=== PATIENT | male | born 1980 | race Caucasian/White ===

== ENCOUNTER 2016-06-18 23:44 | Inpatient (IN) | payer BC ==
[~2016-06-18] VITALS: Ht 182.9 cm; Wt 89.3 kg
[2016-06-19] VITALS (10 sets, daily range): BP systolic 109–123; BP diastolic 66–79; PULSE 62–82; TEMP 36.6–37.2; O2SAT 94–97; Ht 182.9 cm; Wt 89.3 kg
[2016-06-19 00:02] LABS: BASO % 0.2 %; BASO ABS # 0.02 K/uL (0-0.2); COMPLETE YES; EOS % 0.3 %; HEMATOCRIT 44.3 % (42-52); IG% 0.5 %; LYMPH % 12.9 %; LYMPH ABS # 1.67 K/uL (1.2-3.4); MEAN CELL VOLUME 93.5 fL (80-100); MEAN CORPUSCULAR HEMOGLOBIN 31.4 pg (25-34); MEAN CORPUSCULAR HGB CONC 33.6 g/dl (32-36); MEAN PLATELET VOLUME 11.6 fL (7.4-10.4); NEUT % 75.1 %; PLATELET COUNT 181 K/uL (130-400); RED BLOOD COUNT 4.74 M/uL (4.7-6.1)
[2016-06-19 00:02] LABS: ISTAT CREATININE 1.3 mg/dl (0.6-1.3); ISTAT IONIZED CALCIUM 1.12 mmol/l (1.12-1.32)
[2016-06-19 00:14] LABS: PROTHROMBIN TIME (PATIENT) 10.7 SECONDS (9.0-12.0)
[2016-06-19 00:19] LABS: BUN/CREATININE RATIO 11.7 (10-20); CALCIUM 8.3 mg/dl (8.5-10.1); CREATININE 1.7 mg/dl (0.60-1.40); MAGNESIUM 3.1 mg/dl (1.8-2.4); POTASSIUM 3.9 mmol/L (3.5-5.1)
--- NOTE | 2016-06-19 00:22 | EMERGENCY ROOM VISIT NOTE ---
History Report prepared by Briceibjesse: Fady Emmanuel Under the Supervision of: Dr. Clarence Pacheco M.D. First contact with patient: 23:32 Chief Complaint: CARDIAC ASSESSMENT Stated Complaint: CARDIAC History of Present Illness The patient is a 35 year old male who presents to the Emergency Room via EMS with complaints of intermittent heart palpitations starting about 3 hours ago. The patient also had lightheadedness, chest pain, nausea. He had a sudden onset of his symptoms. per EMS, the patient was found to be in V-tach. He cardioverted with 200 joules but went into torsades. He was given 2 doses of magnesium and 3 mg of Versed in route to the Emergency Room. He has a history of Mljhj-Hylomnvkp-Fgfhc Syndrome with an ablation. The patient currently denies any pain. He currently denies chest pain, shortness of breath, lower extremity pain, or any other complaints. He denies any recent exposure to chemicals. He also denies any drug or alcohol use. Source of History: patient, EMS Onset: about 3 hours ago Position: chest Quality: other (heart palpitations) Timing: intermittent Associated Symptoms: + chest pain, + nausea, No SOB Review of Systems See HPI for pertinent positives & negatives. A total of 10 systems reviewed and were otherwise negative. Past Medical & Surgical Medical Problems: (1) History of cardioversion (2) Ventricular tachycardia (3) Giqiv-Xisnqydbn-Yuedz syndrome Family History Patient reports no known family medical history. Social History Smoking Status: Never Smoker Marital Status: Occupation Status: employed Current/Historical Medications No Active Prescriptions or Reported Meds Allergies Coded Allergies: No Known Allergies (Unverified , 06/18/16) Physical Exam Vital Signs Date Time Temp Pulse Resp B/P Pulse Ox O2 Delivery O2 Flow Rate FiO2 06/19/16 01:21 86 16 107/74 98 Nasal Cannula 2.0 06/19/16 00:55 88 16 100/74 100 Room Air 06/19/16 00:07 Nasal Cannula 2.0 06/19/16 00:04 84 16 107/80 98 Nasal Cannula 2.0 06/18/16 23:57 99 Nasal Cannula 2.0 06/18/16 23:55 86 06/18/16 23:50 36.6 91 20 119/84 99 Nasal Cannula 2.0 Physical Exam GENERAL: Patient is minimal distress, anxious appearing. HEENT: No acute trauma, normocephalic atraumatic, mucous membranes moist, no nasal congestion, no scleral icterus. NECK: No stridor, no adenopathy, no meningismus, trachea is midline. CHEST: Old sternotomy scarring LUNGS: No dyspnea. Clear to auscultation and equal bilaterally. No wheeze, no rhonchi. HEART: Regular rate and rhythm. No murmurs, rubs, gallops appreciated. ABDOMEN: Soft, nontender, bowel sounds positive, no masses appreciated, no peritonitis. BACK: No midline tenderness, no CVA tenderness EXTREMITIES: Normal motion all extremities, no cyanosis, no edema. NEUROLOGIC: Alert and oriented, no acute motor or sensory deficits, no focal weakness, cranial nerves grossly intact. SKIN: No rash, no jaundice, no diaphoresis. Medical Decision & Procedures ER Provider Diagnostic Interpretation: X ray results are stated below per my interpretation: CHEST X-RAY ONE VIEW PORTABLE Large globular heart, multiple sternotomy wires and clips, no infiltrate, no effusion, no congestive failure. Laboratory Results 06/18/16 23:45 Red Blood Count 4.74, Mean Corpuscular Volume 93.5, Mean Corpuscular Hemoglobin 31.4, Mean Corpuscular Hemoglobin Concent 33.6, Mean Platelet Volume 11.6, Neutrophils (%) (Auto) 75.1, Lymphocytes (%) (Auto) 12.9, Monocytes (%) (Auto) 11.0, Eosinophils (%) (Auto) 0.3, Basophils (%) (Auto) 0.2, Neutrophils # (Auto ) 9.69, Lymphocytes # (Auto) 1.67, Monocytes # (Auto) 1.42, Eosinophils # (Auto ) 0.04, Basophils # (Auto) 0.02 Test 06/18/16 23:45 06/18/16 23:50 White Blood Count 12.90 K/uL (4.8-10.8) Red Blood Count 4.74 M/uL (4.7-6.1) Hemoglobin 14.9 g/dL (14.0-18.0) Hematocrit 44.3 % (42-52) Mean Corpuscular Volume 93.5 fL (80-100) Mean Corpuscular Hemoglobin 31.4 pg (25-34) Mean Corpuscular Hemoglobin Concent 33.6 g/dl (32-36) Platelet Count 181 K/uL (130-400) Mean Platelet Volume 11.6 fL (7.4-10.4) Neutrophils (%) (Auto) 75.1 % Lymphocytes (%) (Auto) 12.9 % Monocytes (%) (Auto) 11.0 % Eosinophils (%) (Auto) 0.3 % Basophils (%) (Auto) 0.2 % Neutrophils # (Auto) 9.69 K/uL (1.4-6.5) Lymphocytes # (Auto) 1.67 K/uL (1.2-3.4) Monocytes # (Auto) 1.42 K/uL (0.11-0.59) Eosinophils # (Auto) 0.04 K/uL (0-0.5) Basophils # (Auto) 0.02 K/uL (0-0.2) RDW Standard Deviation 44.0 fL (36.4-46.3) RDW Coefficient of Variation 12.8 % (11.5-14.5) Immature Granulocyte % (Auto) 0.5 % Immature Granulocyte # (Auto) 0.06 K/uL (0.00-0.02) Prothrombin Time 10.7 SECONDS (9.0-12.0) Prothromb Time International Ratio 1.0 (0.9-1.1) Activated Partial Thromboplast Time 25.2 SECONDS (21.0-31.0) Partial Thromboplastin Ratio 1.0 Est Creatinine Clear Calc Drug Dose 67.2 ml/min Phosphorus Level 3.8 mg/dl (2.5-4.9) Thyroid Stimulating Hormone (TSH) 3.960 uIu/ml (0.300-4.500) Free Thyroxine 1.27 ng/dl (0.80-1.60) Bedside Hemoglobin 15.0 g/dl (14.0-18.0) Bedside Hematocrit 44 % (42-52) Bedside Sodium 139 mEq/L (135-144) Bedside Potassium 3.5 mEq/L (3.3-5.0) Bedside Chloride 98 mEq/L (101-112) Bedside Total CO2 23 mEq/l (24-31) Bedside Blood Urea Nitrogen 23 mg/dl (7-18) Bedside Creatinine 1.3 mg/dl (0.6-1.3) Bedside Glucose (other) 183 mg/dl (70-99) Bedside Ionized Calcium (Anastacia) 1.12 mmol/l (1.12-1.32) Date/Time Source Procedure Growth Status 06/19/16 00:00 Nasal MRSA DNA Surveillance Screen - Final Specimen Negative for MRSA by DNA Probe Complete Laboratory results as reviewed by me. Medications Administered Medications (Trade) Dose Ordered Sig/Cristofer Route Start Time Stop Time Status Last Admin Dose Admin Sodium Chloride (Nss 1000ml) 1,000 ml @ 125 mls/hr Q8H STAT IV 06/19/16 00:27 06/19/16 02:51 DC 06/19/16 00:52 125 MLS/HR ECG Indication: palpitations Rate (beats per minute): 81 Rhythm: sinus rhythm Findings: 1st degree AV block, RBBB, ST depression, no ectopy, other (Wide complex QRS) ED Course 2332: The patient was evaluated in room B01. A complete history and physical exam was performed. 0014: I reevaluated the patient who is in no distress. seaport planning manager is attempting to get records from [facility]. 0027: Sodium Chloride 1000 ml @ 125 mls/hr IV 0051: I discussed the patient's case with Dr. Todd, from [facility]. 0054: I discussed the patient's case with Dr. Deras, probation manager with [facility], who is agreeable to further evaluating the patient. 0101: I discussed the patient's case with Dr. Pacheco, fiberglass fabricator with [facility]. 0110: Upon reevaluation, the patient is resting comfortably. Discussed results and treatment plan with the patient. He verbalized understanding and agreement with the treatment plan. The patient will be evaluated for further management. 0220: No records could be obtained from [place]. Medical Decision Differential: NSR, SVT, PACs, PVCs, Cardiac Dysrhythmia, Endocrine Dysfunction, Electrolyte/Metabolic Abnormality, Pulmonary Embolism, Infectious, GI, amonst other pathologies entertained. 35 yr old male with complex cardiac surgical history as a child though nothing in recent years and on no medications. Notes periodic <1 min episodes of palpations over last few years without other issue that resolve spontaneously. On no medications and no recent cardiac/PCP evaluations. 3 Hr prior to EMS patient noted palpitations with resultant chest pain, shortness of breath and lightheaded. EMS contacted me from [facility] for medical command regarding this patient who was ill appearing in significant distress with a wide complex tachycardia. Cardioverted x 2 (initially converted to Torsades) and by time of arrival patient feeling vastly improved in no further distress. EKG shows prolonged RBBB with 1st av block and no STEMI. He is asymptomatic and feeling well. CXR with large heart consistent with cardiac surgery. Trop mild elevation consistent with cardioversion and tachycardia. Mild elevated Mag consistent with IV mag given 2nd to torsades. Renal insufficiency unclear if new. Attempted to obtain outside records without success. Discussed with ICU , Cards and Hospitalist. Will hold on any current meds and just keep close monitor with defib pads in place overnight. Unclear if Vtach or SVT and will await fiberglass fabricator input. Stable throughout ED stay and feeling well. Consults Time Called: 0036 [facility]ing [facility] Returned Call: 0051 I discussed the patient's case with Dr. Todd, from [facility]. Additional Consults: Time Called: 005 Consulted Physician: Dr. Deras, probation manager with [facility] Returned Call: 0054 Additional Comments: I discussed the patient's case with Dr. Deras, probation manager with [facility], who is agreeable to further evaluating the patient. Time Called: 0056 Consulted Physician: Dr. Pacheco, fiberglass fabricator with [facility] Returned Call: 0101 Additional Comments: I discussed the patient's case with Dr. Pacheco, fiberglass fabricator with [facility]. Impression Primary Impression: Ventricular tachycardia Additional Impression: Torsades de pointes Scribe Attestation The scribe's documentation has been prepared under my direction and personally reviewed by me in its entirety. I confirm that the note above accurately reflects all work, treatment, procedures, and medical decision making performed by me. Departure Information Dispostion Being Evaluated By Hospitalist Prescriptions No Active Prescriptions or Reported Meds Patient Instructions [facility] Problem Qualifiers
[2016-06-19] MEDS ORDERED: SODIUM CHLORIDE 0.9% 1000ML 1,000 ML IV STA (00:27)
[2016-06-19 00:35] LABS: CKMB/CK RATIO 4.4 (0-3.0); PHOSPHORUS 3.8 mg/dl (2.5-4.9); THYROID STIMULATING HORMONE 3.96 uIu/ml (0.300-4.500)
[2016-06-19] MEDS ORDERED: ACETAMINOPHEN 325 MG TAB PO PRN (01:30)
[2016-06-19] MEDS ORDERED: ONDANSETRON INJ 2 MG/ML 2 ML VIAL IV PRN (01:30)
[2016-06-19 02:32] LABS: CKMB/CK RATIO 6.9 (0-3.0)
--- NOTE | 2016-06-19 04:41 | History and Physical ---
History & Physical Date & Time of Service: June 19, 2016 at 04:24 Chief Complaint: History Of Cardioversion,Ventricular Tachycardia Primary Care Physician: No Doctor, Assigned History of Present Illness Source: patient The patient is a 35-year-old male who had the sudden onset of heart palpitations , lightheadedness, chest pain and nausea that began about 3 hours prior to arrival. He has a significant cardiac history, has had these symptoms in the past, but previously had only lasted for a few beats, and this time did not stop. When EMS arrived, he was found to be in V. tach, he was then cardioverted with 200 J, but then went into torsades. He was given 2 doses of magnesium IV and 3 mg of Versed IV en route to the emergency department. He is status post surgical ablation for Szzsf-Jqqmmfkaz-Mlcip syndrome. He reports that since he spoke to [facility], is been less physically active than he had been, and his diet has not been as good as it used to be. He is not on any prescription, OTC or other drugs. Past Medical/Surgical History Medical Problems: (1) Pqvlf-Ipthwnksb-Nnzwp syndrome Status: Resolved Family History Patient reports no known family medical history. Social History Smoking Status: Never Smoker Smokeless Tobacco Use: No Alcohol Use: none Drug Use: none Marital Status: Housing status: lives with family Occupational Status: employed Multi-Drug Resistant Organisms History of MDRO: No Allergies Coded Allergies: No Known Allergies (Unverified , 06/18/16) Home Medications No Active Prescriptions or Reported Meds Review of Systems Constitutional: No chills, No fatigue, No fever, No problem reported, No sweats , No weakness, No weight loss Eyes: No diplopia, No discharge, No eye pain, No problem reported, No redness, No worsening of vision ENT: No dental problems, No hearing loss, No nasal symptoms, No problem reported, No sore throat, No tinnitus, No trouble swallowing, No unusual epistaxis Respiratory: No cough, No dyspnea at rest, No dyspnea on exertion, No hemoptysis, No problem reported, No shortness of breath, No sputum, No wheezing Cardiovascular: + palpitations, No PND, No chest pain, No claudication, No edema, No orthopnea Abdomen: No GI bleeding, No constipation, No diarrhea, No nausea, No pain, No problem reported, No vomiting Musculoskeletal: No calf pain, No joint pain, No muscle pain, No problem reported, No swelling Genitourinary - Male: No dysuria, No hematuria, No impotence, No lesions, No penile discharge, No problem reported, No urinary frequency, No urinary hesitancy, No urinary incontinence, No urinary retention, No urinary urgency Neurologic: No balance problems, No memory loss, No numbness/tingling, No paralysis, No problem reported, No vertigo, No weakness Psychiatric: No anhedonism, No anxiety, No depression symptoms, No insomnia, No problem reported, No substance abuse Endocrine: No excessive thirst, No excessive urination, No fatigue, No problem reported Hematologic / Lymphatic: No abnormal bleeding/bruising, No clotting problems, No night sweats, No problem reported, No swollen lymph nodes Integumentary: No bleeding, No color change, No itch, No new/changing skin lesions, No problem reported, No rash Allergic / Immunologic: No environmental allergies, No food allergies, No frequent infections, No hives, No pet sensitivities, No poor healing, No problem reported, No prolonged convalescence, No seasonal allergies Physical Exam Vital Signs Date Time Temp Pulse Resp B/P Pulse Ox O2 Delivery O2 Flow Rate FiO2 06/19/16 02:15 36.6 82 15 114/77 96 Room Air 06/19/16 01:45 85 16 103/75 98 Nasal Cannula 2.0 06/19/16 01:21 86 16 107/74 98 Nasal Cannula 2.0 06/19/16 00:55 88 16 100/74 100 Room Air 06/19/16 00:07 Nasal Cannula 2.0 06/19/16 00:04 84 16 107/80 98 Nasal Cannula 2.0 06/18/16 23:57 99 Nasal Cannula 2.0 06/18/16 23:55 86 06/18/16 23:50 36.6 91 20 119/84 99 Nasal Cannula 2.0 General Appearance: WD/WN, no apparent distress Head: normocephalic, atraumatic Eyes: normal inspection, PERRL, EOMI, sclerae normal ENT: normal ENT inspection, hearing grossly normal, pharynx normal Neck: supple, no adenopathy, thyroid normal, no JVD, no carotid bruits Respiratory/Chest: chest non-tender, lungs clear, normal breath sounds, no respiratory distress, no accessory muscle use Cardiovascular: regular rate, rhythm, no edema, no gallop, no JVD, no murmur, normal peripheral pulses Abdomen/GI: normal bowel sounds, non tender, soft, no organomegaly, no pulsatile mass Back: normal inspection, no CVA tenderness, no muscle spasm, normal range of motion Extremities/Musculoskelatal: normal inspection, no calf tenderness, normal capillary refill, no pedal edema, normal range of motion Neurologic/Psych: mri technologist II-XII nml as tested, no motor/sensory deficits, alert, normal mood/affect, normal reflexes, oriented x 3 Skin: normal color, warm/dry, no rash Lymphatic: no adenopathy Diagnostics Laboratory Results Results Past 24 Hours Test 06/18/16 23:45 06/18/16 23:50 06/19/16 01:46 Range/Units White Blood Count 12.90 4.8-10.8 K/uL Red Blood Count 4.74 4.7-6.1 M/uL Hemoglobin 14.9 14.0-18.0 g/dL Hematocrit 44.3 42-52 % Mean Corpuscular Volume 93.5 80-100 fL Mean Corpuscular Hemoglobin 31.4 25-34 pg Mean Corpuscular Hemoglobin Concent 33.6 32-36 g/dl Platelet Count 181 130-400 K/uL Mean Platelet Volume 11.6 7.4-10.4 fL Neutrophils (%) (Auto) 75.1 % Lymphocytes (%) (Auto) 12.9 % Monocytes (%) (Auto) 11.0 % Eosinophils (%) (Auto) 0.3 % Basophils (%) (Auto) 0.2 % Neutrophils # (Auto) 9.69 1.4-6.5 K/uL Lymphocytes # (Auto) 1.67 1.2-3.4 K/uL Monocytes # (Auto) 1.42 0.11-0.59 K/uL Eosinophils # (Auto) 0.04 0-0.5 K/uL Basophils # (Auto) 0.02 0-0.2 K/uL RDW Standard Deviation 44.0 36.4-46.3 fL RDW Coefficient of Variation 12.8 11.5-14.5 % Immature Granulocyte % (Auto) 0.5 % Immature Granulocyte # (Auto) 0.06 0.00-0.02 K/uL Prothrombin Time 10.7 9.0-12.0 SECONDS Prothromb Time International Ratio 1.0 0.9-1.1 Activated Partial Thromboplast Time 25.2 21.0-31.0 SECONDS Partial Thromboplastin Ratio 1.0 Sodium Level 141 136-145 mmol/L Potassium Level 3.9 3.5-5.1 mmol/L Chloride Level 103 98-107 mmol/L Carbon Dioxide Level 26 21-32 mmol/L Anion Gap 12.0 22.0 16-25 mmol/L Blood Urea Nitrogen 20 7-18 mg/dl Creatinine 1.70 0.60-1.40 mg/dl Est Creatinine Clear Calc Drug Dose 67.2 ml/min Estimated GFR () 59.7 Estimated GFR (Non- 51.5 BUN/Creatinine Ratio 11.7 10-20 Random Glucose 193 70-99 mg/dl Calcium Level 8.3 8.5-10.1 mg/dl Phosphorus Level 3.8 2.5-4.9 mg/dl Magnesium Level 3.1 1.8-2.4 mg/dl Total Creatine Kinase 164 211 39-308 U/L Creatine Kinase MB 7.2 14.5 0.5-3.6 ng/ml Creatine Kinase MB Ratio 4.4 6.9 0-3.0 Troponin I 0.789 1.430 0-0.045 ng/ml Thyroid Stimulating Hormone (TSH) 3.960 0.300-4.500 uIu/ml Free Thyroxine 1.27 0.80-1.60 ng/dl Bedside Hemoglobin 15.0 14.0-18.0 g/dl Bedside Hematocrit 44 42-52 % Bedside Sodium 139 135-144 mEq/L Bedside Potassium 3.5 3.3-5.0 mEq/L Bedside Chloride 98 101-112 mEq/L Bedside Total CO2 23 24-31 mEq/l Bedside Blood Urea Nitrogen 23 7-18 mg/dl Bedside Creatinine 1.3 0.6-1.3 mg/dl Bedside Glucose (other) 183 70-99 mg/dl Bedside Ionized Calcium (Anastacia) 1.12 1.12-1.32 mmol/l Microbiology Results 06/19/16 MRSA DNA Surveillance Screen - Final, Complete Specimen Negative for MRSA by DNA Probe CXR normal EKG Rhythm strip from EMS shows V. tach versus SVT with aberrancy at 198 bpm. EKG in the ED shows sinus rhythm at 81 bpm, first-degree AV block, right bundle branch block, and nonspecific ST-T changes. Impression Assessment and Plan V. tach versus SVT with aberrancy, status post cardioversion/history of Pepe- Parkinson-White syndrome post-ablation the patient will be admitted to the ICU with pads anteriorly and posteriorly. His case has been discussed by ED staff with Dr. Pacheco, feels the patient can be admitted to the ICU, and hold off on any form of confusion such as amiodarone unless he has recurrent symptoms. A 2-D echocardiogram has been ordered, along with serial cardiac enzymes. His initial troponin is elevated 0.789, and will expect that the next enzymes will be elevated further. Renal sufficiency--creatinine upon admission labs was 1.7.. He did receive 1 L of normal saline in the emergency department, but will hold off any further rehydration due to his significant cardiomegaly and unknown ejection fraction, and we'll repeat BMP and magnesium levels in the a.m.. If persistently elevated , should get a renal ultrasound performed. Hyperglycemia-- blood sugar on admission labs 193. We'll check hemoglobin A1c in the a.m. We'll hold on doing Accu-Cheks at this time. Level of Care Critical Care Advanced Directives Existing Advance Directive: No Existing Living Will: No Existing Power of Certified Pedorthotist: No Resuscitation Status FULL RESUSCITATION VTE Prophylaxis VTE Risk Assessment Done? Y/N: Yes Risk Level: Moderate Given or contraindicated: SCD's Social Service Consult None Apply
[2016-06-19 06:45] LABS: CALCIUM 8.6 mg/dl (8.5-10.1); CREATININE 0.97 mg/dl (0.60-1.40); MAGNESIUM 2.6 mg/dl (1.8-2.4); POTASSIUM 4.6 mmol/L (3.5-5.1)
--- NOTE | 2016-06-19 06:51 | DIAGNOSTIC IMAGING REPORT ---
CHEST ONE VIEW PORTABLE CLINICAL HISTORY: CARDIAC ASSESSMENT chest pain. Dyspnea. COMPARISON STUDY: No previous studies for comparison. FINDINGS: Moderate cardiac megaly. Prior median sternotomy. Lungs are clear. Diaphragms smooth. IMPRESSION: Cardiomegaly. Otherwise negative study Electronically signed by: Jono Cantu M.D. 06/19/2016 6:49 AM Dictated Date/Time: 06/19/2016 6:49 AM
[2016-06-19 08:00] LABS: ESTIMATED AVERAGE GLUCOSE 111 mg/dl; HA1C FLAG Normal (Normal)
[2016-06-19] MEDS ORDERED: MIDAZOLAM HCL 5 MG/ML 1 ML VIAL IV STA (10:05)
--- NOTE | 2016-06-19 10:35 | Critical Care Consultation ---
Critical Care Consultation Date of Consultation: June 19, 2016. Attending Physician: Trung Todd M.D. Reason for Consultation: ICU admission History of Present Illness Mr Amezquita is a 35 year old male who had sudden onset heart palpitations, lightheadedness, bilateral shoulder pain (mild concurrent chest pain) and nausea that began around 7pm yesterday evening. He thought is would go away so let it go for three hours until calling for EMS. When EMS arrived, he was found to have a wide complex tachycardia (possibly V tach). Slightly unclear from EMS and ER notes regarding whether he had a second shock of 360 J and possibly went into torsades but I cannot find a rhythm strip or EKG of this. He was given 1L fluid bolus, 2 doses of magnesium IV and 3 mg of Versed IV en route to the emergency department. In the ER his EKG showed SR with 1st degree AV block, RBBB, ST depression. He was treated with IV fluids and transferred to the ICU. 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 Previous to this he has had to be emergently cardioverted but he is unsure of the exact circumstances regarding this as he was in middle school at that time. Post x2 ablations he has not had any further significant rhythm issues and notes he is not on any anti-arrhythmics. He occasionally notices a 2-3 second episode after eating a large meal but has had no problems with exercising. After the ablations he had a tricuspid valve operation for Sara's anomaly of which the exact details are unknown but he reports and once valve leaflet was stuck or not working properly. No artificial valve was used in this operation. He also reports a Julio procedure at this time but again details are hazy and we are in the process of getting more information regarding this. Overnight he had a SVT run of 18 beats. Otherwise the monitor shows an occasional ectopic which he reportedly feels as a twinge/pain in his left shoulder. Similar but much milder than the pain he felt yesterday. He denies any current chest pain, shortness of breath, palpitations, claudications, leg swelling, orthopnea or PND. Past Medical/Surgical History Garza Parkinson White s/p x2 ablations approximately 15 years ago Correction of Ebstein's anomaly and possible of other congenital heart disease surgery ?Julio procedure Family History Patient reports no known family medical history. Social History Smoking Status: Never Smoker Smokeless Tobacco Use: No Alcohol Use: none Drug Use: marijuana Marital Status: Occupation Status: employed Allergies Coded Allergies: No Known Allergies (Unverified , 06/18/16) Home Medications No Active Prescriptions or Reported Meds Current Inpatient Medications Current Inpatient Medications Medications (Trade) Dose Ordered Sig/Cristofer Route Start Time Stop Time Status Last Admin Dose Admin Acetaminophen (Tylenol Tab) 650 mg Q4H PRN PO 06/19/16 01:30 07/19/16 01:29 Ondansetron HCl (Zofran Inj) 4 mg Q6H PRN IV 06/19/16 01:30 07/19/16 01:29 Review of Systems Constitutional: No chills, No fever Eyes: No eye pain, No redness, No worsening of vision ENT: No hearing loss, No nasal symptoms, No sore throat Respiratory: No cough, No shortness of breath, No sputum, No wheezing Cardiovascular: + palpitations, No PND, No chest pain (currently, occasional shoulder pain), No claudication, No edema, No orthopnea Abdomen: No GI bleeding, No constipation, No diarrhea, No nausea, No pain, No vomiting Hematologic / Lymphatic: No abnormal bleeding/bruising Integumentary: No itch, No rash Physical Exam Date Time Temp Pulse Resp B/P Pulse Ox O2 Delivery O2 Flow Rate FiO2 06/19/16 08:00 73 16 109/68 97 Room Air 06/19/16 08:00 Room Air 06/19/16 06:00 77 18 115/66 97 Room Air 06/19/16 05:00 71 15 123/71 95 Room Air 06/19/16 04:00 Room Air 06/19/16 04:00 37.2 79 18 111/71 94 Room Air 06/19/16 02:15 36.6 82 15 114/77 96 Room Air 06/19/16 01:45 85 16 103/75 98 Nasal Cannula 2.0 06/19/16 01:21 86 16 107/74 98 Nasal Cannula 2.0 06/19/16 00:55 88 16 100/74 100 Room Air 06/19/16 00:07 Nasal Cannula 2.0 06/19/16 00:04 84 16 107/80 98 Nasal Cannula 2.0 06/18/16 23:57 99 Nasal Cannula 2.0 06/18/16 23:55 86 06/18/16 23:50 36.6 91 20 119/84 99 Nasal Cannula 2.0 General Appearance: well-appearing, WD/WN, no apparent distress Head: normocephalic, atraumatic Eyes: PERRLA, EOMI, sclerae normal, conjunctivae normal Neck: no tenderness, trachea midline, no stridor, supple, no thyromegaly, no lymphadenopathy Respiratory: breath sounds normal, clear to auscultation, no respiratory distress, no tenderness Cardiovasular: regular rate/rhythm, normal S1S2, no murmur Abdomen: non tender, normal bowel sounds, no rebound, no masses, no guarding, no organomegaly Lower Extremities: no edema Pulses: carotid (R) (2+), carotid (L) (2+), radial (R) (2+), radial (L) (2+), dorsalis pedis (R) (2+), dorsalis pedis (L) (2+) Neuro: alert, oriented x 3, normal motor exam, normal sensation, normal speech Psychiatric: normal affect Laboratory Results Last 24 Hours Test 06/18/16 23:45 06/18/16 23:50 06/19/16 01:46 06/19/16 05:24 White Blood Count 12.90 K/uL Red Blood Count 4.74 M/uL Hemoglobin 14.9 g/dL Hematocrit 44.3 % Mean Corpuscular Volume 93.5 fL Mean Corpuscular Hemoglobin 31.4 pg Mean Corpuscular Hemoglobin Concent 33.6 g/dl Platelet Count 181 K/uL Mean Platelet Volume 11.6 fL Neutrophils (%) (Auto) 75.1 % Lymphocytes (%) (Auto) 12.9 % Monocytes (%) (Auto) 11.0 % Eosinophils (%) (Auto) 0.3 % Basophils (%) (Auto) 0.2 % Neutrophils # (Auto) 9.69 K/uL Lymphocytes # (Auto) 1.67 K/uL Monocytes # (Auto) 1.42 K/uL Eosinophils # (Auto) 0.04 K/uL Basophils # (Auto) 0.02 K/uL RDW Standard Deviation 44.0 fL RDW Coefficient of Variation 12.8 % Immature Granulocyte % (Auto) 0.5 % Immature Granulocyte # (Auto) 0.06 K/uL Prothrombin Time 10.7 SECONDS Prothromb Time International Ratio 1.0 Activated Partial Thromboplast Time 25.2 SECONDS Partial Thromboplastin Ratio 1.0 Sodium Level 141 mmol/L 141 mmol/L Potassium Level 3.9 mmol/L 4.6 mmol/L Chloride Level 103 mmol/L 108 mmol/L Carbon Dioxide Level 26 mmol/L 27 mmol/L Anion Gap 12.0 mmol/L 22.0 mmol/L 6.0 mmol/L Blood Urea Nitrogen 20 mg/dl 17 mg/dl Creatinine 1.70 mg/dl 0.97 mg/dl Est Creatinine Clear Calc Drug Dose 67.2 ml/min 117.8 ml/min Estimated GFR () 59.7 117.6 Estimated GFR (Non- 51.5 101.4 BUN/Creatinine Ratio 11.7 18.0 Random Glucose 193 mg/dl 107 mg/dl Calcium Level 8.3 mg/dl 8.6 mg/dl Phosphorus Level 3.8 mg/dl Magnesium Level 3.1 mg/dl 2.6 mg/dl Total Creatine Kinase 164 U/L 211 U/L Creatine Kinase MB 7.2 ng/ml 14.5 ng/ml Creatine Kinase MB Ratio 4.4 6.9 Troponin I 0.789 ng/ml 1.430 ng/ml Thyroid Stimulating Hormone (TSH) 3.960 uIu/ml Free Thyroxine 1.27 ng/dl Bedside Hemoglobin 15.0 g/dl Bedside Hematocrit 44 % Bedside Sodium 139 mEq/L Bedside Potassium 3.5 mEq/L Bedside Chloride 98 mEq/L Bedside Total CO2 23 mEq/l Bedside Blood Urea Nitrogen 23 mg/dl Bedside Creatinine 1.3 mg/dl Bedside Glucose (other) 183 mg/dl Bedside Ionized Calcium (Anastacia) 1.12 mmol/l Estimated Average Glucose 111 mg/dl Hemoglobin A1c 5.5 % Diagnostic Results CHEST ONE VIEW PORTABLE CLINICAL HISTORY: CARDIAC ASSESSMENT chest pain. Dyspnea. COMPARISON STUDY: No previous studies for comparison. FINDINGS: Moderate cardiac megaly. Prior median sternotomy. Lungs are clear. Diaphragms smooth. IMPRESSION: Cardiomegaly. Otherwise negative study Electronically signed by: Jono Cantu M.D. 06/19/2016 6:49 AM Dictated Date/Time: 06/19/2016 6:49 AM Assessment & Plan Mr Amezquita is a 35 year old male with significant cardiac history including corrected Ebstein's anomaly, possible Julio procedure and x2 ablations for WPW who presents with symptomatic wide complex tachycardia requiring emergent cardioversion. Young, no diabetes, no tobacco smoking, no FHx of [place] makes coronary artery disease cause less likely. IMPRESSION: 1 ) Wide complex tachycardia s/p emergent cardioversion. Atrial fibrillation with uncontrolled ventricular response vs. V Tach 2 ) Hx of WPW s/p x2 ablations - no delta wave on current EKG. 3 ) Abnormal EKG: RBBB 2 ) Significant cardiac surgical history (Ebstein's +/- Julio Procedure) CV: Continue on cardiac monitor for arrhythmias. Repeat EKG Urine toxicology Trend troponin - currently consistent with cardioversion. Echocardiogram Consult cardiology Working on getting more information from his previous providers regarding past history. Pulm: no acute issues GI: NPO after breakfast until cleared by cardiology RENAL: Initial elevated Cr improved with IV fluids. No need for renal US of further workup as appears this was pre-renal. ID: No acute issues Heme: No acute issues VTE Prophylaxis - SCDs, pending cardiology consult and echo as young and will be mobile if cleared by cardiology Code: Full Disposition: Continue in ICU pending echo and cardiology consult. Resident Physician Supervision Note: I interviewed and examined the patient. Discussed with Dr. Morrison and agree with findings and plan as documented in the note. Any exceptions or clarifications are listed here: The patient's care was also discussed in detail on multidisciplinary rounds today. I have reviewed the VS, I/O, notes, meds, order history, labs, micro, imaging and other reports. He tells me he has not had any cardiac issues since 2005 but does get a few seconds worth of palpitations several times a day every day. The palpitations he experienced last night were similar with the exception that they didn't stop. He smokes marijuana and believes he gets it from a reliable source (that it's pure) and he has smoked this particular batch over the last month without any issues. He is pain free now and denies SOB. Exam is consistent with that documented by Dr. Morrison. Assessment and plan are documented above. Await Echo , Cardiology opinion and continue to monitor rhythm. Suggest pharmacologic DVT prophylaxis and mobilization. BELEN has resolved with hydration given in ED. Documented By: Evonne Deras
[2016-06-19] MEDS ORDERED: ENOXAPARIN 40 MG/0.4 ML SYR SQ STA (11:14)
[2016-06-19] MEDS ORDERED: ASPIRIN 81 MG CHEW PO STA (11:14)
--- NOTE | 2016-06-19 13:33 | Progress Note ---
Subjective Date of Service: June 19, 2016. Subjective Pt evaluation today including: conversation w/ patient, physical exam, lab review, conversation w/ sales consultant insurance, review of inpatient medication list Pain: no pain PO Intake: adequate Voiding: no voiding problems patient feeling well this AM, no issues overnight since admission admits to palpitations daily that resolve quickly, similar symptoms last night that did not resolve h/o WBW s/p ablation in 2000 also had congenital heart disease with surgery before the age of 7 Cr was 1.7 on admission, down to below 1 with IV fluids had echocardiogram awaiting cardiology consultation Problem List Medical Problems: (1) Torsades de pointes Status: Acute Review of Systems Constitutional: + fatigue, + weakness Cardiac: + palpitations All Other Systems: Reviewed and Negative Medications Current Inpatient Medications Medications (Trade) Dose Ordered Sig/Cristofer Route Start Time Stop Time Status Last Admin Dose Admin Acetaminophen (Tylenol Tab) 650 mg Q4H PRN PO 06/19/16 01:30 07/19/16 01:29 Ondansetron HCl (Zofran Inj) 4 mg Q6H PRN IV 06/19/16 01:30 07/19/16 01:29 Objective Vital Signs Date Time Temp Pulse Resp B/P Pulse Ox O2 Delivery O2 Flow Rate FiO2 06/19/16 12:00 77 16 120/79 Room Air 06/19/16 12:00 Room Air 06/19/16 10:05 76 16 Room Air 06/19/16 08:00 73 16 109/68 97 Room Air 06/19/16 08:00 Room Air 06/19/16 08:00 Room Air 06/19/16 06:00 77 18 115/66 97 Room Air 06/19/16 05:00 71 15 123/71 95 Room Air 06/19/16 04:00 Room Air 06/19/16 04:00 37.2 79 18 111/71 94 Room Air 06/19/16 02:15 36.6 82 15 114/77 96 Room Air 06/19/16 01:45 85 16 103/75 98 Nasal Cannula 2.0 06/19/16 01:21 86 16 107/74 98 Nasal Cannula 2.0 06/19/16 00:55 88 16 100/74 100 Room Air 06/19/16 00:07 Nasal Cannula 2.0 06/19/16 00:04 84 16 107/80 98 Nasal Cannula 2.0 06/18/16 23:57 99 Nasal Cannula 2.0 06/18/16 23:55 86 06/18/16 23:50 36.6 91 20 119/84 99 Nasal Cannula 2.0 Physical Exam General Appearance: WD/WN, no apparent distress Eyes: normal inspection, EOMI, sclerae normal ENT: normal ENT inspection, hearing grossly normal, pharynx normal Neck: supple, no adenopathy, no JVD, trachea midline Respiratory/Chest: chest non-tender, lungs clear, normal breath sounds, no respiratory distress, no accessory muscle use Cardiovascular: regular rate, rhythm, no edema, no gallop, no JVD, no murmur Abdomen: normal bowel sounds, non tender, soft, no organomegaly Extremities: normal range of motion, non-tender, normal inspection, no pedal edema, no calf tenderness 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, no motor/sensory deficits, alert, normal mood/affect, oriented x 3 Skin: normal color, warm/dry, no rash Lymphatic: no adenopathy Laboratory Results Last 24 Hours Test 06/18/16 23:45 06/18/16 23:50 06/19/16 01:46 06/19/16 05:24 White Blood Count 12.90 K/uL Red Blood Count 4.74 M/uL Hemoglobin 14.9 g/dL Hematocrit 44.3 % Mean Corpuscular Volume 93.5 fL Mean Corpuscular Hemoglobin 31.4 pg Mean Corpuscular Hemoglobin Concent 33.6 g/dl Platelet Count 181 K/uL Mean Platelet Volume 11.6 fL Neutrophils (%) (Auto) 75.1 % Lymphocytes (%) (Auto) 12.9 % Monocytes (%) (Auto) 11.0 % Eosinophils (%) (Auto) 0.3 % Basophils (%) (Auto) 0.2 % Neutrophils # (Auto) 9.69 K/uL Lymphocytes # (Auto) 1.67 K/uL Monocytes # (Auto) 1.42 K/uL Eosinophils # (Auto) 0.04 K/uL Basophils # (Auto) 0.02 K/uL RDW Standard Deviation 44.0 fL RDW Coefficient of Variation 12.8 % Immature Granulocyte % (Auto) 0.5 % Immature Granulocyte # (Auto) 0.06 K/uL Prothrombin Time 10.7 SECONDS Prothromb Time International Ratio 1.0 Activated Partial Thromboplast Time 25.2 SECONDS Partial Thromboplastin Ratio 1.0 Sodium Level 141 mmol/L 141 mmol/L Potassium Level 3.9 mmol/L 4.6 mmol/L Chloride Level 103 mmol/L 108 mmol/L Carbon Dioxide Level 26 mmol/L 27 mmol/L Anion Gap 12.0 mmol/L 22.0 mmol/L 6.0 mmol/L Blood Urea Nitrogen 20 mg/dl 17 mg/dl Creatinine 1.70 mg/dl 0.97 mg/dl Est Creatinine Clear Calc Drug Dose 67.2 ml/min 117.8 ml/min Estimated GFR () 59.7 117.6 Estimated GFR (Non- 51.5 101.4 BUN/Creatinine Ratio 11.7 18.0 Random Glucose 193 mg/dl 107 mg/dl Calcium Level 8.3 mg/dl 8.6 mg/dl Phosphorus Level 3.8 mg/dl Magnesium Level 3.1 mg/dl 2.6 mg/dl Total Creatine Kinase 164 U/L 211 U/L Creatine Kinase MB 7.2 ng/ml 14.5 ng/ml Creatine Kinase MB Ratio 4.4 6.9 Troponin I 0.789 ng/ml 1.430 ng/ml 3.300 ng/ml Thyroid Stimulating Hormone (TSH) 3.960 uIu/ml Free Thyroxine 1.27 ng/dl Bedside Hemoglobin 15.0 g/dl Bedside Hematocrit 44 % Bedside Sodium 139 mEq/L Bedside Potassium 3.5 mEq/L Bedside Chloride 98 mEq/L Bedside Total CO2 23 mEq/l Bedside Blood Urea Nitrogen 23 mg/dl Bedside Creatinine 1.3 mg/dl Bedside Glucose (other) 183 mg/dl Bedside Ionized Calcium (Anastacia) 1.12 mmol/l Estimated Average Glucose 111 mg/dl Hemoglobin A1c 5.5 % Assessment and Plan 35 yo male with history of congenital heart disease s/p surgical correction as well as WPW syndrome with ablation in 2000, presented after he had V tach in the field, cardioverted - Ventricular tachycardia: no episodes since admission, had a brief run of SVT overnight but nothing this AM rise in troponin likely from cardioversion, tachycardia follow up echocardiogram follow up cardiology recommendations possible torsades after cardioversion, magnesium level actually high on admission - BELEN: likely prerenal since his Cr went from 1.7 to normal overnight with IV fluids
[2016-06-19] MEDS ORDERED: ENOXAPARIN 60 MG/0.6 ML SYR SQ STA (13:57)
[2016-06-19] MEDS ORDERED: ENOXAPARIN 1 MG/KG SQ SCH (14:00)
--- NOTE | 2016-06-19 14:37 | Discharge Summary ---
Discharge Summary Date of Service June 19, 2016. Discharge Summary Admission Date: June 19, 2016 at 01:34 Discharge Date: June 19, 2016 Discharge Disposition: Acute care facility Principal Diagnosis: Ventricular tachycardia Problems/Secondary Diagnoses: h/o congenital heart disease s/p repair in 1989 h/o WPW s/p ablation in 2000 Procedures: Echocardiogram Consultations: ICU Cardiology Medication Reconciliation Medication Profile: No Active Prescriptions or Reported Meds Discharge Exam patient did well since admission, had a run of SVT for 18 beats, no v tach appreciate cardiology consult from Dr. Correa, recommended transfer to [facility] due to structurally abnormal heart he discussed with [facility] and they accepted Review of Systems: Constitutional: No chills, No fatigue, No fever, No problem reported, No sweats, No weakness, No weight loss Eyes: No diplopia, No discharge, No eye pain, No problem reported, No redness, No worsening of vision ENT: No dental problems, No hearing loss, No nasal symptoms, No problem reported, No sore throat, No tinnitus, No trouble swallowing, No unusual epistaxis Respiratory: No cough, No dyspnea at rest, No dyspnea on exertion, No hemoptysis, No problem reported, No shortness of breath, No sputum, No wheezing Cardiovascular: + palpitations (daily, typically stop quickly), No PND, No chest pain, No claudication, No edema, No orthopnea, No problem reported Abdomen: No GI bleeding, No constipation, No diarrhea, No nausea, No pain, No problem reported, No vomiting Musculoskeletal: No calf pain, No joint pain, No muscle pain, No problem reported, No swelling Genitourinary - Male: No dysuria, No hematuria, No urinary frequency, No urinary urgency Neurologic: No balance problems, No memory loss, No numbness/tingling, No paralysis, No problem reported, No vertigo, No weakness Psychiatric: No anhedonism, No anxiety, No depression symptoms, No insomnia , No problem reported, No substance abuse Endocrine: No excessive thirst, No excessive urination, No fatigue, No problem reported Hematologic / Lymphatic: No abnormal bleeding/bruising, No clotting problems , No night sweats, No problem reported, No swollen lymph nodes Integumentary: No bleeding, No color change, No itch, No new/changing skin lesions, No problem reported, No rash Physical Exam: General Appearance: WD/WN, no apparent distress Eyes: normal inspection, EOMI, sclerae normal ENT: normal ENT inspection, hearing grossly normal, pharynx normal Neck: supple, no adenopathy, no JVD, trachea midline Respiratory/Chest: chest non-tender, lungs clear, normal breath sounds, no respiratory distress, no accessory muscle use Cardiovascular: regular rate, rhythm, no edema, no gallop, no JVD, no murmur , normal peripheral pulses Abdomen / GI: normal bowel sounds, non tender, soft, no organomegaly Extremities: normal inspection, no calf tenderness, normal capillary refill , no pedal edema, normal range of motion, pelvis stable 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, no motor/sensory deficits , alert, normal mood/affect, normal reflexes, oriented x 3 Skin: normal color, warm/dry, no rash Lymphatic: no adenopathy Hospital Course 35 yo male with history of congenital heart disease s/p surgical correction as well as WPW syndrome with ablation in 2000, presented after he had V tach in the field, cardioverted - Ventricular tachycardia: no episodes since admission, had a brief run of SVT overnight but nothing this AM rise in troponin likely from cardioversion, tachycardia follow up echocardiogram follow up cardiology recommendations - transfer to [facility] due to structurally abnormal heart possible torsades after cardioversion, magnesium level actually high on admission, no torsades since admission - BELEN: likely prerenal since his Cr went from 1.7 to normal overnight with IV fluids transfer to [facility] via [facility] Total Time Spent: Less than 30 minutes This includes examination of the patient, discharge planning, medication reconciliation, and communication with other providers. Discharge Instructions Please refer to the electronic Patient Visit Report (Discharge Instructions) for additional information.
--- NOTE | 2016-06-19 16:33 | CARDIOLOGY CONSULTATION ---
DATE OF CONSULTATION: 06/19/2016 REFERRING PHYSICIAN: Victor Hugo Wesley DO CHIEF COMPLAINT: Ventricular tachycardia. HISTORY OF PRESENT ILLNESS: Mr. Oz Amezquita is a 35-year-old gentleman with a history of congenital heart disease, specifically Ebstein's anomaly. He was in his usual state of health yesterday evening when he began to experience a sensation of palpitations. This was described as intermittent episodes of tachycardia and a pounding in his chest. The symptoms themselves appeared to wax and wane in severity and were associated with a sense of dizziness and occasionally left arm and back discomfort. Due to the persistent nature of the events, patient contacted EMS and was transported to [facility]. En route, patient was noted to have wide complex tachycardia, felt to be ventricular tachycardia and underwent cardioversion. This resulted in a period of torsades by report which eventually resolved spontaneously. At the time of presentation to the Emergency Room, patient was in a normal sinus rhythm. The patient states that on occasion he has symptoms of palpitations which are fleeting in nature. These can occur occasionally with exercise and occasionally with eating. The episodes themselves are fleeting and generally not associated with other symptoms. The patient cannot recall another episode of sustained palpitations similar to that which he experienced last evening. In general, patient is an active individual who is able to perform routine exercise without significant limitation. He does report occasional episodes of left arm and back discomfort when he is on a strenuous hike. This, however, does not occur with less strenuous activity. He has not developed any significant breathing difficulty recently. He has not noticed any swelling in his lower extremities. He not currently taking any medications. PAST MEDICAL HISTORY: Ebstein's anomaly. The patient describes 3 distinct procedures; 1. In the 80s which involved a surgical treatment of WPW. 2. Endocardial ablation performed in 2000, reportedly for recurrent WPW. 3. Surgical repair of the tricuspid valve in 2012 possibly with a Julio procedure. 4. Possible history of repaired ASD. CURRENT MEDICATIONS: None. FAMILY HISTORY: No significant family history of congenital heart disease. SOCIAL HISTORY: The patient recently moved to [place], to work at [employer] in the [employer] department. He occasionally uses recreational marijuana but no other tobacco use. He has social drinking without a history of abuse. REVIEW OF SYSTEMS: A complete 10-system review of systems was performed and the pertinent positives noted in the history of present illness. The remainder being negative. PHYSICAL EXAMINATION: GENERAL: The patient does not appear to be in acute distress. He is a pleasant individual who is alert and oriented. His mood and affect appeared normal. He answered all questions appropriately. VITAL SIGNS: Blood pressure of 120/79 with pulse of 77. HEENT: Sclerae are anicteric. Pupils are equal and reactive to light and accommodation. Extraocular movements were intact. Palpation of submandibular region did not reveal any significant lymphadenopathy. The carotids are palpable bilaterally. I do not appreciate any bruits on auscultation. There is no evidence of thyromegaly. LUNGS: Evaluation of his lungs revealed them to be clear. He had good air movement without rales, wheezes or rhonchi. CARDIAC: Revealed him to be in a regular rhythm. There were no murmurs appreciated. He did have well-healed sternotomy scar. PMI was not markedly displaced on palpation. EXTREMITIES: Evaluation of both wrists revealed radial pulses that were equal in intensity. There is no evidence of cyanosis or clubbing. Evaluation of lower extremities did not reveal any significant peripheral edema. ABDOMEN: Evaluation of his abdomen revealed it to be soft. SKIN: I did not appreciate rashes on exam today. LABORATORY STUDIES: Obtained at [facility] include white cell count of 12.9, hemoglobin of 14.9, platelet count was 181. Sodium was 141, potassium was 4.6, BUN was 17, creatinine was 0.9. Serial cardiac biomarkers were obtained, initial troponin being 0.7, a second being 1.4, a third being 3.3. A single view chest x-ray was also obtained at the time of admission, this revealed patient to have a history of sternotomy and evidence of cardiomegaly, but no other acute cardiopulmonary disease. The patient's 12-lead EKG at the time of admission revealed him to be in a sinus rhythm with a first degree AV block and a right bundle branch block. Review of his EKG from EMS reveals wide complex tachycardia with QRS duration greater than 180 milliseconds concordance in the precordial leads. Echocardiogram is pending ASSESSMENT AND PLAN: 1. Sustained ventricular tachycardia. The patient did have a sustained wide complex rhythm consistent with ventricular tachycardia. He did require cardioversion. There is a possibility, this represents some form of an atrial arrhythmia such as a flutter with aberrant conduction to the ventricle; however, it seems unlikely given his known atrioventricular carley disease. At this point, given his history of congenital heart disease and history of heart surgery it seems reasonable to perform EP testing to see if there are additional inducible arrhythmias that would dispute this diagnosis of ventricular tachycardia. Given the complex nature of his heart disease, he was referred to [facility] for expert evaluation. If indeed this is suspected to be sustained ventricular tachycardia, patient will likely require ICD implant either subcutaneous or endocardial. 2. Ebstein's anomaly. The patient did appear to have associated Pepe-Parkinson white syndrome in the past, has undergone 2 procedures for ablation both surgical and endocardial. He does have occasional episodes of more narrow complex tachycardia on telemetry which could be re-entrant in nature. He does not appear to have had any other sustained arrhythmias or symptoms there until the episode last evening. He does not appear to be in heart failure clinically. 3. Elevated cardiac biomarkers: The patient is a 35-year-old and does not likely have epicardial coronary disease. He does describe rare episodes of possible anginal symptoms with exertion but none with routine exertion. He did have some of these symptoms last evening during his episode of tachycardia. This may in fact have been element of demand ischemia associated with his tachycardia. He does have significant elevation; however and it has not yet peaked. It would seem reasonable to consider coronary angiography in this setting or some form of coronary evaluation. JUSTINE
[2016-06-19 16:34] LABS: MAGNESIUM 2.4 mg/dl (1.8-2.4)
[2016-06-20] MEDS ORDERED: ENOXAPARIN 100 MG/1ML SYR SQ SCH
--- NOTE | 2016-06-20 17:34 | ECHOCARDIOGRAM REPORT ---
*NOTICE TO RECEIVING [employer] This information is strictly Confidential and protected under [place] law. [place] law prohibits you from making any further disclosure of this information unless further disclosure is expressly permitted by the written consent of the person to whom it pertains or is authorized by law. A general authorization for the release of medical or other information is not sufficient for this purpose. Hospital accepts no responsibility if the information is made available to any other person, INCLUDING THE PATIENT. Interpretation Summary * Name: JENARO SAMANO Study Date: 06/19/2016 11:08 AM BP: 109/68 mmHg * [facility] HR: 76 * : 1980 (M/d/yyyy) Gender: Male Height: 72 in * Age: 35 yrs Ethnicity: CA Weight: 197 lb * Ordering Physician: Evonne Deras * Referring Physician: Self, Referred * Performed By: Betty Lawrence RDCS * * Reason For Study: SVT * BSA: 2.1 m2 * -- Conclusions -- * 1. Normal LV size. Mild concentric LVH. * 2. Normal LV systolic function. LVEF 50-55%. Septal motion consistent with conduction abnormality. * 3. RV not well visualized but appears mildly dilated with mild RV dysfunction. * 4. Tricuspid annulus is dilated. Trace TR. * 5. Mild pulmonary regurgitation. * 6. Trace mitral regurgitation * 7. Dilated IVC. * 8. No prior studies for comparison. Procedure Details * A complete two-dimensional transthoracic echocardiogram was performed (2D, M-mode, Doppler and color flow Doppler). Left Ventricle * The left ventricle is grossly normal size. * There is mild concentric left ventricular hypertrophy. * Ejection Fraction = 50-55%. * Septal motion is consistent with conduction abnormality. Right Ventricle * The right ventricle is not well visualized. * The right ventricle is mildly dilated. * RV function appears mildly reduced. Atria * Borderline left atrial enlargement. * The right atrium is mildly dilated. * No ASD detected; PFO is not assessed. Mitral Valve * The mitral valve is grossly normal. * There is no mitral valve stenosis. * There is trace mitral regurgitation. Tricuspid Valve * Tricuspid annular dilation. * There is no tricuspid stenosis. * There is trace tricuspid regurgitation. Aortic Valve * The aortic valve opens well. * The aortic valve is trileaflet. * No hemodynamically significant valvular aortic stenosis. * There is no significant aortic regurgitation. Pulmonic Valve * The pulmonic valve is not well seen, but is grossly normal. * There is no pulmonic valvular stenosis. * Mild pulmonic valvular regurgitation. Great Vessels * The aortic root and proximal ascending aorta are normal sized. * No Doppler or imaging evidence of an aortic coarctation. Pericardium/Pleural * There is no pericardial effusion. * Moderate size left pleural effusion. Great Vessels * Dilated inferior vena cava with reduced collapsability with sniff indicates an elevated right atrial pressure of 15 mmHg MMode 2D Measurements and Calculations IVSd 1.2 cm IVSs 1.3 cm LVIDd 5.3 cm LVIDs 3.7 cm LVPWd 1.4 cm LVPWs 1.6 cm IVS/LVPW 0.83 FS 29.3 % EDV(Teich) 132.7 ml ESV(Teich) 58.7 ml EF(Teich) 55.7 % EDV(cubed) 145.1 ml ESV(cubed) 51.3 ml EF(cubed) 64.6 % % IVS thick 6.9 % % LVPW thick 8.5 % LV mass(C)d 288.9 grams LV mass(C)dI 136.5 grams/m\S\2 LV mass(C)s 192.6 grams LV mass(C)sI 91.0 grams/m\S\2 SV(Teich) 74.0 ml SI(Teich) 35.0 ml/m\S\2 SV(cubed) 93.8 ml SI(cubed) 44.3 ml/m\S\2 Ao root diam 3.5 cm Ao root area 9.9 cm\S\2 LA dimension 3.2 cm LA/Ao 0.90 LVAd ap4 41.1 cm\S\2 LVLd ap4 9.6 cm EDV(MOD-sp4) 147.4 ml EDV(sp4-el) 149.9 ml LVAs ap4 27.6 cm\S\2 LVLs ap4 8.3 cm ESV(MOD-sp4) 78.3 ml ESV(sp4-el) 77.2 ml EF(MOD-sp4) 46.9 % EF(sp4-el) 48.5 % LVAd ap2 42.9 cm\S\2 LVLd ap2 9.4 cm EDV(MOD-sp2) 165.6 ml EDV(sp2-el) 166.1 ml LVAs ap2 28.3 cm\S\2 LVLs ap2 8.3 cm ESV(MOD-sp2) 85.1 ml ESV(sp2-el) 81.6 ml EF(MOD-sp2) 48.6 % EF(sp2-el) 50.9 % LVLd %diff -1.61 % EDV(MOD-bp) 156.6 ml LVLs %diff -0.39 % ESV(MOD-bp) 82.2 ml EF(MOD-bp) 47.5 % SV(MOD-sp4) 69.2 ml SI(MOD-sp4) 32.7 ml/m\S\2 SV(MOD-sp2) 80.5 ml SI(MOD-sp2) 38.0 ml/m\S\2 SV(MOD-bp) 74.4 ml SI(MOD-bp) 35.2 ml/m\S\2 SV(sp4-el) 72.6 ml SI(sp4-el) 34.3 ml/m\S\2 SV(sp2-el) 84.5 ml SI(sp2-el) 39.9 ml/m\S\2 Doppler Measurements and Calculations MV E max charisse 51.7 cm/sec MV dec time 0.37 sec Ao V2 max 85.3 cm/sec Ao max PG 2.9 mmHg Ao max PG (full) 1.2 mmHg LV V1 max PG 1.7 mmHg LV V1 max 66.0 cm/sec
== END 2016-06-19 18:57 | disposition short-term general hospital (02) | DRG 308 ==
LOC: ENRESERVDT → ENRESERVTM → C.EDB 23:44 → C.MSICU 06-19 01:34
PROVIDERS: ADMIT Hospitalist; ATTEND Internal Medicine
DX: I47.2 Ventricular tachycardia (principal); Q22.5 Ebstein's anomaly; N17.9 Acute kidney failure, unspecified; R73.9 Hyperglycemia, unspecified; I48.91 Unspecified atrial fibrillation; R74.8 Abnormal levels of other serum enzymes; I47.1 Supraventricular tachycardia; I45.10 Unspecified right bundle-branch block; I45.81 Long QT syndrome; I45.6 Pre-excitation syndrome; Z87.74 Personal history of (corrected) congenital malformations of heart and circulatory system; Z95.2 Presence of prosthetic heart valve; Z98.890 Other specified postprocedural states

== ENCOUNTER 2018-03-16 08:34 | Inpatient (IN) ==
[2018-03-16] MEDS ORDERED: AMIODARONE HCL INJ 50 MG/ML 3 ML VIAL IV ONE (08:51)
[2018-03-16] MEDS ORDERED: AMIODARONE / D5W 150 MG/100 ML BAG IV STA (08:54)
[2018-03-16] MEDS ORDERED: ASPIRIN CHEW 324 MG PO STA (08:54)
[2018-03-16] MEDS ORDERED: AMIODARONE IV BOLUS / DRIP IV STA (08:54)
[2018-03-16] MEDS ORDERED: AMIODARONE / D5W 360 MG/200 ML BAG IV SCH ×2 (09:00→14:55)
[2018-03-16] MEDS ORDERED: RAPID SEQUENCE INDUCTION BAG ONE (09:01)
[2018-03-16 09:14] LABS: iSTAT Hemoglobin 17.7 g/dl (14.0-18.0); iSTAT Ionized Calcium 1.14 mmol/l (1.12-1.32)
[2018-03-16 09:18] LABS: Basophils # (auto) 0.02 K/uL (0-0.2); Basophils % (auto) 0.3 %; Eosinophils # (auto) 0.11 K/uL (0-0.5); Eosinophils % (auto) 1.5 %; Hematocrit (blood only) 50.3 % (42-52); Hemoglobin 17.3 g/dL (14.0-18.0); Immature Granulocytes # (auto) 0.01 K/uL (0.00-0.02); Immature Granulocytes % (auto) 0.1 %; Lymphocytes # (auto) 1.99 K/uL (1.2-3.4); Lymphocytes % (auto) 27.8 %; Mean Corpuscular Hgb Conc 34.4 g/dL (32-36); Mean Corpuscular Volume 92.1 fL (80-100); Mean Platelet Volume 12.5 fL (7.4-10.4); Monocytes # (auto) 0.88 K/uL (0.11-0.59); Monocytes % (auto) 12.3 %; Neutrophils # (auto) 4.15 K/uL (1.4-6.5); Platelet Count 198 K/uL (130-400); RDW Coefficient of Variation 13.1 % (11.5-14.5); RDW Standard Deviation 43.3 fL (36.4-46.3); Red Blood Count 5.46 M/uL (4.7-6.1); White Blood Count 7.16 K/uL (4.8-10.8)
[2018-03-16] MEDS ORDERED: MIDAZOLAM HCL 1 MG/ML 2ML VIAL ONE (09:20)
[2018-03-16] MEDS ORDERED: fentaNYL citrate 100 MCG/2 ML VIAL ONE (09:20)
[2018-03-16 09:26] LABS: Alanine Aminotransferase 31 U/L (12-78); Albumin Level 4.3 gm/dl (3.4-5.0); Aspartate Aminotransferase 24 U/L (15-37); BUN Creatinine Ratio 12.2 (10-20); Blood Urea Nitrogen 16 mg/dl (7-18); Calcium 9.1 mg/dl (8.5-10.1); Carbon Dioxide 26 mmol/L (21-32); Chloride 103 mmol/L (98-107); Creatinine Clr Calc Pharmacy 93.5 ml/min; Est GFR (African American) 81.4; Est GFR (Non-African American) 70.2; Glucose 119 mg/dl (70-99); Magnesium 2.3 mg/dl (1.8-2.4); Potassium 4.1 mmol/L (3.5-5.1); Sodium 138 mmol/L (136-145)
[2018-03-16 09:37] LABS: Albumin Globulin Ratio 1.2 (0.9-2); Alkaline Phosphatase 76 U/L (45-117); Bilirubin,Total 0.8 mg/dl (0.2-1); Globulin 3.5 gm/dl (2.5-4.0); Total Protein 7.8 gm/dl (6.4-8.2); Troponin I < 0.015 ng/ml (0-0.045)
--- NOTE | 2018-03-16 09:51 | XRay Report ---
XR chest 1V portable HISTORY: 37 years-old Male VT acute ventricular tachycardia COMPARISON: Chest radiograph 06/18/2016 TECHNIQUE: Portable AP view of the chest FINDINGS: Cardiac silhouette is enlarged which appears increased in size from comparison. Surgical clips projec t of the right mediastinal distribution. Prior median sternotomy. No pneumothorax, pleural effusion, focal airspace consolidation or overt pulmonary edema. Bones of the chest appear grossly intact. IMPRESSION: Cardiomegaly without acute process. The above report was generated using voice recognition software. It may contain grammatical, syntax o r spelling errors. Electronically signed by: Rinku Webb M.D. 03/16/2018 9:50 AM
--- NOTE | 2018-03-16 10:54 | History & Physical Report ---
Date of Service March 16, 2018 Assessment & Plan (1) Ventricular tachycardia: Ventricular tachycardia vs. atrial tachycardia with aberrancy. Started on amiodarone in the ED, then cardioverted. Now in normal sinus rhythm. Has history of WPW and has 3 radioablations, most recently in 06/2016 at [facility]. - Telemetry - Discussed with Dr. Correa - Cardiology will see - Stop amiodarone - Monitor EKGs - Maintain electrolytes - Will attempt to get records from [facility] - Dr. Andres Card (2) WPW (Xxkjs-Reehxjehl-Qwhnf syndrome): Family history of; has undergone 3 radioablations, last one in 06/2016 for similar episode. - Cardiology consult (3) DVT prophylaxis: Low risk - SCDs/early ambulation History of Present Illness Primary Care Provider: NO PCP 37yo M w/ hx of Ebstein's anomaly and WPW who presents with possible stable vtach. Has history of WPW and ablations with the last ablation in 2016 after an episode of sustained vtach. Reported he felt "weird" this morning while working out. At the end of his work-out, he felt palpitations and chest pounding. He gets daily palpitations, especially with eating, but usually only 1-2 beats. This remained, and he presented to the ED. Denies syncope or fall. No chest pain. In the ED, was given amiodarone, without resolution, then cardioverted. Now in NSR. Allergies Allergy/AdvReac Type Severity Reaction Status Date / Time No Known Allergies Allergy Unverified 03/16/18 09:28 Home Medications Home Medications Medication Instructions Recorded Confirmed Type No Known Home Medications 03/16/18 03/16/18 History Past Med/Surg History Medical History Ebstein anomaly WPW (Jkfpm-Rsbgkzxpu-Cpxbd syndrome) Surgical History History of open heart surgery S/P radiofrequency ablation operation for arrhythmia Family History Other Diabetes Heart disease Social History marital status: Current Living Situation: Spouse current occupational status: employed Other Information That Helps Us Care for You: No Feels Safe at Home: Yes Safety Concerns: Feels Safe At This Time Smoking Status: Never smoker Do You Dip or Chew Tobacco: No Second Hand Exposure: No Tobacco Cessation Education Requested by Patient: No Hx Alcohol Use: Yes Alcohol Intake Frequency: other Hx Substance Use: No Beliefs That Will Affect Care: None Preferred Language: Bangladeshi Communication Ability: Effective Supervisor [place] Required: No Review of Systems Constitutional: no fever, no chills and no sweats Eyes: no diplopia Ear, Nose, Mouth, Throat: no ear trauma, no nasal discharge and no dental pain Respiratory: no cough, no chest congestion and no dyspnea Cardiovascular: + palpitations; no chest pain, no dyspnea, no dyspnea on exertion, no syncope and no edema Gastrointestinal: no abdominal pain, no belching, no constipation, no diarrhea/ loose stools, no blood in stools and no melena Musculoskeletal: no back pain, no joint pain and no muscle weakness Integumentary: no rash, no skin ulcer and no erythema Neurologic: no generalized weakness, no loss of sensation, no numbness and no paresthesia Psychiatric: no depression and no anxiety Endocrine: no fatigue, no polydipsia and no polyphagia Physical Exam 2 Vital Signs (Past 24 Hours): Last Vital Signs Temp 36.7 C 03/16/18 09:00 Pulse 88 03/16/18 10:31 Resp 14 03/16/18 09:45 BP 97/75 L 03/16/18 10:31 Pulse Ox 98 03/16/18 10:31 Constitutional: WD/WN, vitals as above Eyes: EOM intact bilaterally; no conjunctival abnormality ENMT: external ear and nose normal, oropharynx normal Neck: trachea midline, no thyromegaly normal visual inspection Respiratory: normal respiratory effort, lungs clear to auscultation no respiratory distress Cardiovascular: RRR, no murmur, no edema Chest (Breasts): Additional Comments: Surgical scar midline Gastrointestinal (Abdomen): Inspection/Auscultation: abdomen normal to inspection; abdomen not distended Musculoskeletal: no cyanosis or clubbing, extremities motor strength 5/5 Skin: no rashes, warm and dry Neurologic: moves all extremities and awake Psychiatric: Orientation: alert, oriented to person and cooperative
[2018-03-16] MEDS ORDERED: ACETAMINOPHEN 325 MG TAB PO PRN (12:28)
--- NOTE | 2018-03-16 15:50 | Emergency Department Note ---
Entered by Brenda Prince acting as a scribe for Asha Villagomez MD History of Present Illness General Chief complaint: Arrhythmia/Palpitations Stated complaint: HEART ARYTHMIA Time Seen by Provider: 03/16/18 08:44 Source: patient Limitations: no limitations History of Present Illness Provider complaint: palpitations Onset (ago): hour(s) 1 Location: chest Severity: similar to prior episodes Pain Consistency: + other (persistent) Maximum Pain Intensity: 0 Quality: + other (palpitations) Associated symptoms: + other (Denies: chest pain, recent illness) The patient is a 37 year old male who presents to the Emergency Room with complaints of persistent palpitations beginning 2 hours ago. He notes his symptoms began while nearing the end of a workout. The patient denies any chest pain. He reports a history of v-tach, and notes his current symptoms feel similar to previous episodes. The patient has a history of cardioversion. He notes a history of open-heart surgery as well 2 ablations. 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 Home Medications Home Medications Medication Instructions Recorded Confirmed Type acetaminophen [Mapap 650 mg PO Q4H PRN #1 tab 03/16/18 Rx (acetaminophen)] Allergies Allergy/AdvReac Type Severity Reaction Status Date / Time No Known Allergies Allergy Unverified 03/16/18 09:28 Past Med/Surg History Medical History Ebstein anomaly WPW (Bvitm-Efmblxtqs-Lrigh syndrome) Surgical History History of open heart surgery S/P radiofrequency ablation operation for arrhythmia Family History Other Diabetes Heart disease Social History marital status: Current Living Situation: Spouse current occupational status: employed Other Information That Helps Us Care for You: No Feels Safe at Home: Yes Safety Concerns: Feels Safe At This Time Smoking Status: Never smoker Do You Dip or Chew Tobacco: No Second Hand Exposure: No Tobacco Cessation Education Requested by Patient: No Hx Alcohol Use: Yes Alcohol Intake Frequency: other Hx Substance Use: No Beliefs That Will Affect Care: None Preferred Language: Yi Review of Systems See HPI for pertinent positives & negatives. and A total of 10 systems reviewed and were otherwise negative Physical Exam Vital Signs Vital Signs - 24 hr 03/16/18 16:00 03/16/18 18:50 03/16/18 20:00 Temperature 36.5 C 36.5 C 36.6 C Temperature Source Oral Oral Pulse Rate 70 Pulse Rate [Apical] 70 70 72 Pulse Rhythm [Apical] Regular Respiratory Rate 18 18 18 Respiratory Effort / Characteristics Non-Labored Spontaneous Non-Labored Spontaneous Respiratory Depth Normal Normal Blood Pressure [Right Arm] 105/70 105/70 116/77 Blood Pressure Mean [Right Arm] 81 90 Pulse Oximetry 96 96 97 Oxygen Delivery Method Room Air Room Air Vital signs reviewed. General: Well-appearing man, in no significant distress. HEENT: No scleral icterus, PERRLA, neck supple. Atraumatic. Cardiovascular: Tachycardic rate and regular rhythm, no extra sounds. Pulmonary: Clear to auscultation bilaterally, normal work of breathing. Abdomen: Soft, nontender, nondistended, positive bowel sounds. Musculoskeletal: Atraumatic, no peripheral edema. Neurologic: Patient awake alert and oriented x 3, full strength in all 4 extremities. Cranial nerves 2 through 12 grossly intact. Skin: Warm, dry, no rash. Procedures Free Text Procedures Indication: Stable v-tach Written consent was obtained after the risks and benefits were explained, including but not limited to pain, thermal burn, allergic reaction, aspiration, airway obstruction, laryngospasm, infection, hypotension, and cardiorespiratory arrest. At this time, the risks of the procedure are less than the risks of NOT performing the procedure. A time out was taken and the correct patient and procedure identified. The patient was on 100% via nasal cannula and end tidal CO2 monitoring prior to the procedure. Suction, airway equipment, medications, respiratory equipment, ACLS cart, and appropriate personnel were prepared prior to the initiation of the procedure. Sedation was achieved utilizing fentanyl 100 mcg, versed 2 mg IV x 2. The biphasic defibrillator was set to 100 joules of energy and synched. After confirmation of sedation and "all clear" safety check the synchronized shock was delivered. This resulted in successful conversion of the dysrhythmia back into sinus rhythm. See nursing notes for dosages and times. There were no complications and the patient recovered uneventfully from the procedure. Course 0847: Past medical records reviewed. The patient was evaluated in room A1, and a complete history and physical examination were performed. 0856: I discussed the case with Dr. Mata, [facility] tester compressed gases. 0901: I reevaluated the patient. 0928: Cardioversion performed. See procedure note for details. 1008: I reviewed the patient's case with Dr. Monsalve [facility] hospitalist. He will evaluate the patient for further management. 1015: Upon reevaluation, the patient is resting. I discussed test results. They verbalized agreement with the treatment plan. Consultations Consultation #1: I reviewed the patient's case with Dr. Monsalve [facility] hospitalist. He will evaluate the patient for further management. Time: 10:08 Administered Medications Discontinued Medications Amiodarone HCl (Cordarone) Confirm Administered Dose 150 mg IV .STK-MED ONE Stop: 03/16/18 08:52 Last Admin: 03/16/18 09:06 Dose: Not Given Amiodarone HCl (Cordarone Iv Bolus / Drip) 1 ea IV NOW STA; Protocol Stop: 03/16/18 08:55 Last Admin: 03/16/18 10:05 Dose: Not Given Aspirin (Aspirin) 324 mg PO NOW STA Stop: 03/16/18 08:55 Last Admin: 03/16/18 09:08 Dose: 324 mg Fentanyl Citrate (Fentanyl Citrate) Confirm Administered Dose 100 mcg .ROUTE .STK-MED ONE Stop: 03/16/18 09:21 Last Admin: 03/16/18 09:25 Dose: 100 mcg Amiodarone HCl/Dextrose (Nexterone / D5w) 150 mg in 100 mls @ 600 mls/hr IV ONE STA Stop: 03/16/18 09:03 Last Infusion: 03/16/18 09:20 Dose: 0 mls/hr Admin: 03/16/18 09:05 Dose: 600 mls/hr Amiodarone HCl/Dextrose (Nexterone / D5w) 360 mg in 200 mls @ 33.333 mls/hr IV .Q6H COURT Stop: 03/16/18 14:59 Last Infusion: 03/16/18 14:43 Dose: 0 mg/min, 0 mls/hr Admin: 03/16/18 09:17 Dose: 1 mg/min, 33.3 mls/hr Midazolam HCl (Versed) Confirm Administered Dose 2 mg .ROUTE .STK-MED ONE Stop: 03/16/18 09:21 Last Admin: 03/16/18 09:29 Dose: 2 mg Miscellaneous () Confirm Administered Dose 1 ea .ROUTE .STK-MED ONE Stop: 03/16/18 09:02 Last Admin: 03/16/18 10:05 Dose: Not Given Medical Decision Making Differential Diagnosis Differential diagnosis includes etiologies such as premature contractions, electrolyte abnormality, cardiac dysrhythmia, thyroid dysfunction, pulmonary embolism, infection, gastrointestinal, as well as others were entertained. Medical Records Attestation: I reviewed the patient's medical records. Home Medications Current Medication List: was personally reviewed by me Laboratory Data Attestation: I reviewed the patient's lab results. Result diagrams: 03/16/18 08:55 03/16/18 08:55 Lab Results 03/16/18 03/16/18 03/16/18 Range/Units 08:55 08:55 09:00 WBC 7.16 (4.8-10.8) K/uL RBC 5.46 (4.7-6.1) M/uL Hgb 17.3 (14.0-18.0) g/dL POC Hgb 17.7 (14.0-18.0) g/dl Hct 50.3 (42-52) % POC Hct 52 (42-52) % MCV 92.1 (80-100) fL MCH 31.7 (25-34) pg MCHC 34.4 (32-36) g/dL RDW Std Deviation 43.3 (36.4-46.3) fL RDW Coeff of Pamela 13.1 (11.5-14.5) % Plt Count 198 (130-400) K/uL MPV 12.5 H (7.4-10.4) fL Immature Gran % (Auto) 0.1 % Neut % (Auto) 58.0 % Lymph % (Auto) 27.8 % Lamb % (Auto) 12.3 % Eos % (Auto) 1.5 % Baso % (Auto) 0.3 % Immature Gran # (Auto) 0.01 (0.00-0.02) K/uL Neut # (Auto) 4.15 (1.4-6.5) K/uL Lymph # (Auto) 1.99 (1.2-3.4) K/uL Lamb # (Auto) 0.88 H (0.11-0.59) K/uL Eos # (Auto) 0.11 (0-0.5) K/uL Baso # (Auto) 0.02 (0-0.2) K/uL POC Sodium 140 (135-144) mEq/L Sodium 138 (136-145) mmol/L POC Potassium 4.1 (3.3-5.0) mEq/L Potassium 4.1 (3.5-5.1) mmol/L POC Chloride 103 (101-112) mEq/L Chloride 103 (98-107) mmol/L Carbon Dioxide 26 (21-32) mmol/L POC Total CO2 25 (24-31) mEq/l Anion Gap 9.0 (3-11) POC Anion Gap 17.0 (16-25) mmol/L POC BUN 16 (7-18) mg/dl BUN 16 (7-18) mg/dl Creatinine 1.30 (0.6-1.4) mg/dl POC Creatinine 1.2 (0.6-1.3) mg/dl Est Cr Clr Drug Dosing 93.5 ml/min Est GFR ( Amer) 81.4 Est GFR (Non-Af Amer) 70.2 BUN/Creatinine Ratio 12.2 (10-20) Glucose 119 H (70-99) mg/dl POC Glucose (other) 118 H (70-99) mg/dl Calcium 9.1 (8.5-10.1) mg/dl POC Ioniz Calcium Anastacia 1.14 (1.12-1.32) mmol/l Magnesium 2.3 (1.8-2.4) mg/dl Total Bilirubin 0.8 (0.2-1) mg/dl AST 24 (15-37) U/L ALT 31 (12-78) U/L Alkaline Phosphatase 76 (45-117) U/L POC Troponin I (0-0.045) ng/ml Troponin I < 0.015 (0-0.045) ng/ml Total Protein 7.8 (6.4-8.2) gm/dl Albumin 4.3 (3.4-5.0) gm/dl Globulin 3.5 (2.5-4.0) gm/dl Albumin/Globulin Ratio 1.2 (0.9-2) TSH 1.670 (0.300-4.500) uIu/ml 03/16/18 Range/Units 09:01 WBC (4.8-10.8) K/uL RBC (4.7-6.1) M/uL Hgb (14.0-18.0) g/dL POC Hgb (14.0-18.0) g/dl Hct (42-52) % POC Hct (42-52) % MCV (80-100) fL MCH (25-34) pg MCHC (32-36) g/dL RDW Std Deviation (36.4-46.3) fL RDW Coeff of Pamela (11.5-14.5) % Plt Count (130-400) K/uL MPV (7.4-10.4) fL Immature Gran % (Auto) % Neut % (Auto) % Lymph % (Auto) % Lamb % (Auto) % Eos % (Auto) % Baso % (Auto) % Immature Gran # (Auto) (0.00-0.02) K/uL Neut # (Auto) (1.4-6.5) K/uL Lymph # (Auto) (1.2-3.4) K/uL Lamb # (Auto) (0.11-0.59) K/uL Eos # (Auto) (0-0.5) K/uL Baso # (Auto) (0-0.2) K/uL POC Sodium (135-144) mEq/L Sodium (136-145) mmol/L POC Potassium (3.3-5.0) mEq/L Potassium (3.5-5.1) mmol/L POC Chloride (101-112) mEq/L Chloride (98-107) mmol/L Carbon Dioxide (21-32) mmol/L POC Total CO2 (24-31) mEq/l Anion Gap (3-11) POC Anion Gap (16-25) mmol/L POC BUN (7-18) mg/dl BUN (7-18) mg/dl Creatinine (0.6-1.4) mg/dl POC Creatinine (0.6-1.3) mg/dl Est Cr Clr Drug Dosing ml/min Est GFR ( Amer) Est GFR (Non-Af Amer) BUN/Creatinine Ratio (10-20) Glucose (70-99) mg/dl POC Glucose (other) (70-99) mg/dl Calcium (8.5-10.1) mg/dl POC Ioniz Calcium Anastacia (1.12-1.32) mmol/l Magnesium (1.8-2.4) mg/dl Total Bilirubin (0.2-1) mg/dl AST (15-37) U/L ALT (12-78) U/L Alkaline Phosphatase (45-117) U/L POC Troponin I < 0.03 (0-0.045) ng/ml Troponin I (0-0.045) ng/ml Total Protein (6.4-8.2) gm/dl Albumin (3.4-5.0) gm/dl Globulin (2.5-4.0) gm/dl Albumin/Globulin Ratio (0.9-2) TSH (0.300-4.500) uIu/ml Imaging Data Radiologist's Impression: Radiology results as stated below per my review and the radiologist's interpretation: XR chest 1V portable HISTORY: 37 years-old Male VT acute ventricular tachycardia COMPARISON: Chest radiograph 06/18/2016 TECHNIQUE: Portable AP view of the chest FINDINGS: Cardiac silhouette is enlarged which appears increased in size from comparison. Surgical clips project of the right mediastinal distribution. Prior median sternotomy. No pneumothorax, pleural effusion, focal airspace consolidation or overt pulmonary edema. Bones of the chest appear grossly intact. IMPRESSION: Cardiomegaly without acute process. The above report was generated using voice recognition software. It may contain grammatical, syntax or spelling errors. Electronically signed by: Rinku Webb M.D. 03/16/2018 9:50 AM ECG Data Attestation: I personally reviewed and interpreted this ECG as follows: Indication: palpitations Rate (beats per minute): 188 Rhythm: v-tach Findings: + other (QTC 573) and + LBBB Comparison ECG Date: from (Repeat EKG 928 ) Change: the following changes noted (Repeat ECG 928: Normal sinus rhythm. Rate of 84 bpm. 1st degree AV block. Left atrial enlargement. RBBB. Left posterior fascicular block. Repolarization abnormality. QTC 496. ) Blood Pressure Blood Pressure Findings: Normal blood pressure Blood Pressure Disposition: did not require urgent referral MDM Narrative This patient was evaluated and appeared to be in no significant distress. The patient was awake alert and speaking. Is placed on rn cardiac rehab and found to be in a V. tach. Blood pressure remained stable. Patient has a significant cardiac history including congenital heart disease and electrical conduction difficulty status post ablation. Patient admits he has had both SVT and V. tach in the past. Dr. Mata of cardiology was briefly consulted prior to the amiodarone administration. Amiodarone 150 mg IV bolus was administered without significant improvement. Patient was given IV fentanyl and Versed, total of 100 mcg fentanyl and 4 mg of IV Versed, with subsequent cardioversion. Please see my procedure note above. Patient tolerated this well and converted to a first-degree AV block that was rate controlled. He does have a right bundle branch block and a left posterior fascicular block. The patient was informed of the findings. He is currently on an amiodarone drip. Case was discussed with inpatient hospitalist service for further management. Impression & Plan V-tach Critical Care Time I have personally spent greater than 60 minutes of critical care time in the direct management of this patient. This includes bedside care, interpretation of diagnostic studies, and testing, discussion with consultants, patient, and family members, and other required patient management activities. This 60 minutes is in excess of all separately billable procedures. Critical Care Time: Yes Total Critical Care Time: 60 Discharge Plan Visit Data *Final* Discharge Date/Time: 03/16/18 12:05 Chief Complaint: Arrhythmia/Palpitations Stated Complaint: HEART ARYTHMIA ED Provider: Asha Villagomez Discharge Problem: V-tach Patient Disposition: Admitted As Inpatient Condition: Good Discharge Instructions Interventions: ED Discharge Assessment Last Done: 03/16/18 12:05 The scribe's documentation has been prepared under my direction and personally reviewed by me in its entirety. I confirm that the note above accurately reflects all work, treatment, procedures, and medical decision making performed by me.
--- NOTE | 2018-03-16 16:15 | Cardiology Consultation ---
Date of Consultation March 16, 2018 Assessment & Plan (1) V-tach: The 12 lead EKG recorded that time of presentation certainly suggests ventricular tachycardia. This brace primarily on the left bundle branch block morphology with a very slurred upstroke and very long QRS duration. He certainly has some conduction abnormalities at baseline. He certainly could have an atrial arrhythmia with aberrancy, but his baseline AV carley conduction is also poor. He does not appear to have any pre-excitation on baseline EKG. He has a long first-degree AV block at baseline. I think would be unusual for him to conduct an atrial flutter in a one-to-one fashion achieving a ventricular rate of 200 beats per minute. He was however exercising at the time of initiation which could at least temporarily improved AV node function and conduction. He certainly is more likely to have atrial arrhythmias based on his prior surgeries, but he has significant right ventricular disease and could certainly have VT as well. I spoke with the cardiology service at [facility]. Based on his history of congenital heart disease and arrhythmia he will be transferred for further evaluation. I do not think there is any utility at this time of continuing amiodarone or other medical therapy. Provided he is in a monitored environment I think he will do well. (2) Ebsteins anomaly: He has undergone corrective surgery with closure of an ASD, tricuspid valve repair and bidirectional Julio shunt. Functionally he is doing quite well. He reportedly has some dysfunction of the right ventricle, but clinically he has no symptoms of heart failure. He follows periodically with his adult congenital specialist at [facility]. History of Present Illness Reason for Consultation: Ventricular tachycardia Requesting Physician: Bello Attending Physician: Dylan Monsalve MD History of Present Illness The patient is a 37-year-old gentleman with a history of WPW an Sara's anomaly status post both surgical and radiofrequency treatment of accessory pathways. Additionally, the patient did undergo reparative surgery which reportedly involve closure of an ASD and tricuspid valve repair. In June of 2016 he presented to [facility] after being treated by EMS for reported wide complex tachycardia. He was suspected of having ventricular tachycardia although an atrial arrhythmia with aberrancy was not definitively excluded. He was sent to [facility] where he did undergo radiofrequency ablation of a right-sided atrial flutter. Patient has generally been in good health since that time. He exercises regularly and this morning was actually exercising on an elliptical machine when he began to notice a sense of palpitation. He had some associated dizziness but no associated chest discomfort or breathing difficulty. He did not feel overtly presyncopal. Based on the nature of the symptoms he presented to [facility] for evaluation. He was discovered to be in a wide complex tachycardia but hemodynamically stable. He was administered amiodarone without effect. Subsequently he was sedated and underwent synchronized cardioversion with return to normal sinus rhythm. Currently the patient is feeling well. He states that he is somewhat tired. Otherwise, he has no symptoms of chest discomfort, breathing difficulty or sense of palpitation. Allergies Allergy/AdvReac Type Severity Reaction Status Date / Time No Known Allergies Allergy Unverified 03/16/18 09:28 Home Medications Home Medications Medication Instructions Recorded Confirmed Type No Known Home Medications 03/16/18 03/16/18 History Patient History Medical History Ebstein anomaly WPW (Ezcit-Lztnhlxdc-Snryi syndrome) Surgical History History of open heart surgery S/P radiofrequency ablation operation for arrhythmia Family History Other Diabetes Heart disease Social History marital status: Current Living Situation: Spouse current occupational status: employed Other Information That Helps Us Care for You: No Feels Safe at Home: Yes Safety Concerns: Feels Safe At This Time Smoking Status: Never smoker Do You Dip or Chew Tobacco: No Second Hand Exposure: No Tobacco Cessation Education Requested by Patient: No Hx Alcohol Use: Yes Alcohol Intake Frequency: other Hx Substance Use: No Beliefs That Will Affect Care: None Preferred Language: Vietnamese Communication Ability: Effective Medart Operator Required: No Review of Systems Complete. Pertinent positives known history of present illness. He has not report any recent constitutional symptoms such as fevers or chills. According to his was present for the interview today he has been snoring more lately. He has not changed his diet significantly although he has gained some weight recently. Physical Exam 2 Vital Signs (Past 24 Hours): Last Vital Signs Temp 36.5 C 03/16/18 12:30 Pulse 66 03/16/18 12:30 Resp 18 03/16/18 12:30 BP 100/64 03/16/18 12:30 Pulse Ox 99 03/16/18 12:30 Physical Exam: The patient is alert and oriented. Mood and affect appeared normal. He answered all questions appropriately. HEENT: Pupils are equal and reactive to light and accommodation. Extraocular movements are intact. The sclerae are anicteric. Neuro: Cranial nerves intact Neck: Patient's neck is supple. He has palpable carotid pulses bilaterally without bruits on auscultation. There is no evidence of jugular venous distention. The thyroid is not enlarged. Lungs: Clear to auscultation bilaterally. He has good air movement without use of accessory muscles. No rales wheezes or rhonchi. Cardiac: Heart demonstrates a regular rate and rhythm. Normal S1 and S2. No murmurs on examination. Pulses: The patient has palpable radial pulses bilaterally that are equal in intensity Extremities: There was no evidence of hypoperfusion. There is no cyanosis or clubbing. There is no edema. Skin: I did not appreciate any rashes on examination today. Results & Data Laboratory Results Abnormal Lab Results 03/16/18 03/16/18 03/16/18 08:55 08:55 09:00 WBC 7.16 RBC 5.46 Hgb 17.3 POC Hgb 17.7 Hct 50.3 POC Hct 52 MCV 92.1 MCH 31.7 MCHC 34.4 RDW Std Deviation 43.3 RDW Coeff of Pamela 13.1 Plt Count 198 MPV 12.5 H Immature Gran % (Auto) 0.1 Neut % (Auto) 58.0 Lymph % (Auto) 27.8 [facility] % (Auto) 12.3 Eos % (Auto) 1.5 Baso % (Auto) 0.3 Immature Gran # (Auto) 0.01 Neut # (Auto) 4.15 Lymph # (Auto) 1.99 [facility] # (Auto) 0.88 H Eos # (Auto) 0.11 Baso # (Auto) 0.02 POC Sodium 140 Sodium 138 POC Potassium 4.1 Potassium 4.1 POC Chloride 103 Chloride 103 Carbon Dioxide 26 POC Total CO2 25 Anion Gap 9.0 POC Anion Gap 17.0 POC BUN 16 BUN 16 Creatinine 1.30 POC Creatinine 1.2 Est Cr Clr Drug Dosing 93.5 Est GFR ( Amer) 81.4 Est GFR (Non-Af Amer) 70.2 BUN/Creatinine Ratio 12.2 Glucose 119 H POC Glucose (other) 118 H Calcium 9.1 POC Ioniz Calcium Anastacia 1.14 Magnesium 2.3 Total Bilirubin 0.8 AST 24 ALT 31 Alkaline Phosphatase 76 POC Troponin I Troponin I < 0.015 Total Protein 7.8 Albumin 4.3 Globulin 3.5 Albumin/Globulin Ratio 1.2 TSH 1.670 03/16/18 09:01 WBC RBC Hgb POC Hgb Hct POC Hct MCV MCH MCHC RDW Std Deviation RDW Coeff of Pamela Plt Count MPV Immature Gran % (Auto) Neut % (Auto) Lymph % (Auto) [facility] % (Auto) Eos % (Auto) Baso % (Auto) Immature Gran # (Auto) Neut # (Auto) Lymph # (Auto) [facility] # (Auto) Eos # (Auto) Baso # (Auto) POC Sodium Sodium POC Potassium Potassium POC Chloride Chloride Carbon Dioxide POC Total CO2 Anion Gap POC Anion Gap POC BUN BUN Creatinine POC Creatinine Est Cr Clr Drug Dosing Est GFR ( Amer) Est GFR (Non-Af Amer) BUN/Creatinine Ratio Glucose POC Glucose (other) Calcium POC Ioniz Calcium Anastacia Magnesium Total Bilirubin AST ALT Alkaline Phosphatase POC Troponin I < 0.03 Troponin I Total Protein Albumin Globulin Albumin/Globulin Ratio TSH ECG Additional Comments: Initial EKG demonstrated wide complex tachycardia with left bundle branch block pattern and transition in V3 to 4. There was an inferior axis. Second EKG demonstrates normal sinus rhythm with first-degree AV block, right bundle branch block and left anterior fascicular block.
--- NOTE | 2018-03-16 20:32 | Discharge Summary ---
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 Has history of WPW and ablations with the last ablation in 2016 after an episode of sustained vtach. Reported he felt "weird" this morning while working out. At the end of his work-out, he felt palpitations and chest pounding. He gets daily palpitations, especially with eating, but usually only 1-2 beats. This remained, and he presented to the ED. Denies syncope or fall. No chest pain. In the ED, was given amiodarone, without resolution, then cardioverted. Now in NSR. Principal Diagnosis Likely ventricular tachycardia Discharge Exam Constitutional WD/WN, vitals as above Eyes EOM intact bilaterally; no conjunctival abnormality ENMT external ear and nose normal, oropharynx normal Neck trachea midline, no thyromegaly normal visual inspection Respiratory normal respiratory effort, lungs clear to auscultation no respiratory distress Cardiovascular RRR, no murmur, no edema Gastrointestinal (Abdomen) Inspection/Auscultation: abdomen normal to inspection; abdomen not distended Musculoskeletal no cyanosis or clubbing, extremities motor strength 5/5 Skin no rashes, warm and dry Neurologic moves all extremities and awake Psychiatric Orientation: alert, oriented to person and cooperative Discharge Data Allergies Allergy/AdvReac Type Severity Reaction Status Date / Time No Known Allergies Allergy Unverified 03/16/18 09:28 Consultations 03/16/18 09:49 ED Decision to Admit Stat 03/16/18 12:28 Consult Cardiology Routine Hospital Course (1) Ventricular tachycardia: Ventricular tachycardia vs. atrial tachycardia with aberrancy. Started on amiodarone in the ED, then cardioverted. Now in normal sinus rhythm. Has history of WPW and has 3 radioablations, most recently in 06/2016 at [facility]. - Telemetry - Discussed with Dr. Correa - Cardiology will see - Stopped amiodarone - Monitor EKGs - Maintain electrolytes - Will attempt to get records from [place] - Dr. Andres Card (2) WPW (Pordi-Shuaranjr-Prkgg syndrome): Family history of; has undergone 3 radioablations, last one in 06/2016 for similar episode. - Cardiology consult (3) DVT prophylaxis: Low risk - SCDs/early ambulation Total Time Total Time Spent Total Time Spent (In Minutes): 35 Total Time Includes: Examination of the Patient, Discharge Planning, Medication Reconciliation and Communication With Other Providers Discharge Plan Discharge Items Patient Disposition: Transfer Acute Care Hospital Reason For Visit: POSSIBLE VTACH Discharge Diagnosis: Ventricular tachycardia Condition: Good Discharge Goals: Diagnostic testing and Improve disease control Activity: Resume your previous activity Non-emergency contact: Appliance Adjuster Call non-emergency contact if: your symptoms worsen, your pain is not controlled and your temperature is above 100.5 Diet: Regular Addtl Provider Instructions: Mr. Amezquita was admitted to the hospital with stable ventricular tachycardia. He was started on amiodarone without resolution of his ventricular tachycardia. He was then cardioverted and remaind in normal sinus rhythm. Dr. Correa () evaluated him and discussed with Georgina who would like to accept the patient to the [facility] service for further evaluation and treatment. Prescriptions: New acetaminophen [Mapap (acetaminophen)] 325 mg Tablet 650 mg PO Q4H PRN (Reason: fever or pain) Qty: 1 RF: 0 Stand-Alone Forms: [facility] Discharge Orders: Discharge Order (Routine); Ordered 03/16/18 Ordered By: Dylan Monsalve Admission Data Admit Date/Time: 03/16/18 10:47 Attending Provider: Dylan Monsalve Admit Provider: Dylan Monsalve Primary Care Provider: PCP,NO Other Providers: Tanvi Laughlin Christophe W. Service: Telemetry Other Interventions: Discharge Summary Assessment (RN) Last Done: 03/16/18 18:50
== END 2018-03-16 20:42 | disposition short-term general hospital (02) | DRG 310 ==
LOC: ED 08:34 → 1E 10:47

== ENCOUNTER 2019-01-19 15:17 | Inpatient (IN) ==
[2019-01-19] MEDS ORDERED: PROCAINAMIDE HCL INJ 500 MG/ML 2 ML VIAL ONE (15:27)
[2019-01-19] MEDS ORDERED: MIDAZOLAM HCL 5 MG/ML VIAL ONE (15:38)
[2019-01-19 15:46] LABS: Basophils # (auto) 0.02 K/uL (0-0.2); Basophils % (auto) 0.2 %; Eosinophils # (auto) 0.05 K/uL (0-0.5); Eosinophils % (auto) 0.6 %; Hematocrit (blood only) 47.2 % (42-52); Hemoglobin 15.5 g/dL (14.0-18.0); Immature Granulocytes # (auto) 0.02 K/uL (0.00-0.02); Immature Granulocytes % (auto) 0.2 %; Lymphocytes # (auto) 1.71 K/uL (1.2-3.4); Lymphocytes % (auto) 20.4 %; Mean Corpuscular Hemoglobin 29.8 pg (25-34); Mean Corpuscular Hgb Conc 32.8 g/dL (32-36); Mean Corpuscular Volume 90.8 fL (80-100); Mean Platelet Volume 11.3 fL (7.4-10.4); Monocytes # (auto) 0.75 K/uL (0.11-0.59); Monocytes % (auto) 8.9 %; Neutrophils # (auto) 5.84 K/uL (1.4-6.5); Neutrophils % (auto) 69.7 %; Platelet Count 226 K/uL (130-400); RDW Coefficient of Variation 13.2 % (11.5-14.5); RDW Standard Deviation 43.4 fL (36.4-46.3); White Blood Count 8.39 K/uL (4.8-10.8)
[2019-01-19] MEDS ORDERED: PROPOFOL IV EMULSION 10 MG/ML 20 ML VIAL IV ONE (15:54)
[2019-01-19] MEDS ORDERED: PROCAINAMIDE HCL INJ 500 MG/ML 2 ML VIAL IV STA (16:01)
[2019-01-19] MEDS ORDERED: MIDAZOLAM HCL 5 MG/ML 10 ML IV STA (16:02)
[2019-01-19] MEDS ORDERED: PROPOFOL IV EMULSION 10 MG/ML 20 ML VIAL IV STA (16:04)
[2019-01-19 16:06] LABS: Alanine Aminotransferase 27 U/L (12-78); Aspartate Aminotransferase 20 U/L (15-37); BUN Creatinine Ratio 12.5 (10-20); Blood Urea Nitrogen 17 mg/dl (7-18); Calcium 9.1 mg/dl (8.5-10.1); Carbon Dioxide 26 mmol/L (21-32); Chloride 105 mmol/L (98-107); Est GFR (African American) 75.2; Est GFR (Non-African American) 64.9; Glucose 183 mg/dl (70-99); Lipase 148 U/L (73-393); Potassium 3.8 mmol/L (3.5-5.1); Sodium 136 mmol/L (136-145)
[2019-01-19 16:11] LABS: Alkaline Phosphatase 120 U/L (45-117); Bilirubin,Total 0.6 mg/dl (0.2-1); Globulin 3.9 gm/dl (2.5-4.0); Total Protein 7.9 gm/dl (6.4-8.2); Troponin I < 0.015 ng/ml (0-0.045)
--- NOTE | 2019-01-19 16:24 | History & Physical Report ---
Date of Service January 19, 2019 Assessment & Plan (1) WPW (Hhulr-Qegskeanw-Bpmeg syndrome): (2) V-tach: (3) Ebsteins anomaly: (4) History of cardioversion: - Admit to PCU - Pt with hx of 2 radioablation and [address] [facility] within the past 2 years. Pt follows with Dr. Card with [facility] - S/p procainamide x3 doses without conversion, then was electrically cardioverted, currently in NSR, slightly fatigued however no cardiac complaints - Cardiology consulted, Dr. Correa - discussed with him regarding further intervention - will start amiodarone IV gtt now - Recently was taken off metoprolol due to low heart rate with exercise, amiodarone also recently decreased to only 200 mg daily, will need to discuss with [facility] cardiology regarding dosing of amiodarone, it's likely that his dose was recently reduced to avoid toxicity. - No need for complete anticoagulation at this time. -Cardiac defibrillator in place - consider evaluation of defibrillator regarding settings as it did not fire today (5) DVT prophylaxis: -Teds CODE: FULL code Disposition: From home, CM to assist with dc management History of Present Illness Primary Care Provider: NO PCP This is a 38 M with PMHx of Figueroa Parkinson White, Ebstein anomaly, v-tach with hx of cardioversion who presented in WPW to the ER this afternoon. The patient was administered 3 doses of procainamide without conversion, and then underwent electrical cardioversion with success. Patient follows with [facility], cardiology with Dr. Card. He most recently saw him within the last 2 to 3 months. He recently had medications adjusted, was taken off metoprolol completely as his heart rate was hitting a max of 90 bpm on a treadmill test, and amiodarone 200 mg was also reduced to only once a day where he had been previously taking it twice per day. Pt reports that he was eating lunch, drinking decaffeinated coffee today when he felt his heart go into an abnormal rhythm. He checked his apple watch which noted heart rate of 140. Patient then called EMS. He reports this feels like previous episodes of WPW. Currently he feels tired since having the cardioversion done and receiving propofol and Versed. Pertinent family history: His mother's side has a history of Ebkkn-Sjutocvky-Mrfpe, he is unable to name specific family members but reports that multiple people have been affected by it. He drinks 1 glass of wine several nights per week, had one glass last evening. He denies any smoking. Patient does not consume large amounts of caffeine. Allergies Allergy/AdvReac Type Severity Reaction Status Date / Time No Known Allergies Allergy Unverified 01/19/19 16:53 Home Medications Home Medications Medication Instructions Recorded Confirmed Type amiodarone [Pacerone] 200 mg PO DAILY 01/19/19 01/19/19 History Past Med/Surg History Medical History Ebstein anomaly WPW ([place]ioec-Qkahuqjms-Btwxf syndrome) Surgical History History of open heart surgery S/P radiofrequency ablation operation for arrhythmia Family History Other Diabetes Heart disease Social History Preferred Language: Thai Communication Ability: Effective Boat Outfitter Required: No Beliefs That Will Affect Care: None marital status: Current Living Situation: Spouse current occupational status: employed Other Information That Helps Us Care for You: No Feels Safe at Home: Yes Safety Concerns: Feels Safe At This Time Smoking Status: Never smoker Second Hand Exposure: No ; Hx Alcohol Use: Yes Alcohol type: beer and wine Hx Substance Use: No Review of Systems Review of Systems: Constitutional: No fever, sweats or chills Eyes: No diplopia, no worsening or blurred vision ENT: normal hearing, no trouble swallowing Respiratory: No cough, sputum, dyspnea at rest or on exertion Cardiovascular: No chest pain, tightness or palpitations Abdomen: No pain, nausea, vomiting, diarrhea or constipation Musculoskeletal: No joint pain, calf pain, swelling Neurologic: No weakness, numbness/tingling, or balance problems Psychiatric: No anxiety or depression Skin: No rash or itch Physical Exam Physical Exam: General: awake, alert, no apparent distress, + appears fatigued Head: Normocephalic, atraumatic ENT: PERRL, EOMI, no pharyngeal exudate, mucous membranes moist Chest: Clear to auscultation, on room air, no adventitious breath sounds, + vertical scar over anterior chest wall with history of prior sternotomy Cardiac: Regular rate and rhythm, no murmur, no JVD, normal peripheral pulses, good capillary refill Abdominal: NABS x 4 quadrants, soft, nondistended, nontender to palpation, no rebound, guarding or tenderness Extremities: Normal inspection, no peripheral edema or erythema, calfs nontender to palpation Psych: Normal mood and affect Neuro: AAO x 3, no gross motor deficits, speech is clear, no peripheral sensory deficits Skin: no rash or erythema Results & Data Diagnostic Findings XR chest 1V portable CLINICAL HISTORY: Chest Pain COMPARISON STUDY: 03/16/2018 FINDINGS: Prior median sternotomy. Stable moderate cardiomegaly. Lungs are considered clear. Diaphragms are smooth. IMPRESSION: Postoperative changes. Moderate cardiomegaly. No acute process. ECG Additional Comments: 19-JAN-2019 15:27:10 [facility]-EDSTAT ROUTINE RETRIEVAL Wide QRS tachycardia Left bundle branch block Abnormal ECG When compared with ECG of 16-MAR-2018 09:29, Wide QRS tachycardia has replaced Sinus rhythm Vent. rate has increased BY 55 BPM 25mm/s 10mm/mV 150Hz 9.0.9 12SL 241 ARTIS: 3 Referred by: REFERRED SELF Unconfirmed Vent. rate 143 BPM WY interval * ms QRS duration 210 ms QT/QTc 476/734 ms P-R-T axes * 83 256 Code Status & VTE Plan Code Status Full code-discussed with the patient and at bedside Supervising Physician Co-Signing Physician Notes Patient seen and examined, chart reviewed, case discussed with RAMON Musa and I agree with her assessment and plan as documented above. 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 Patient presents today after experiencing palpitations at work, heart rate of 140. Upon arrival to the ER he was found to be in monomorphic V. tach. He was administered Procainamide 300mg IV x 2 doses with no effect. He was sedated and successfully cardioverted to normal sinus rhythm. Patient presently feels well. Denies further palpitations, shortness of breath, dizziness, chest pain On physical exam he is afebrile, hemodynamically stable, no acute distress Skinwell-healed sternotomy scar HEENTnormocephalic/atraumatic, pupils equal round reactive to light, moist mucous membranes, neck supple, no JVD Heart+ S1/S2, regular, no murmurs/rubs/gallops LungsCTA Abdomen+ bowel sounds, soft, NT/ND Extremitieswarm, well-perfused, no clubbing/cyanosis/edema Labs and images reviewed. Electrolytes within normal limits. Troponin x1 negative Chest x-ray with moderate cardiomegaly and postoperative changes. No acute process EKG with wide-complex tachycardia 143 bpm. Presently in NSR on monitor Assessment/Plan: 38yo C male with history of WPW presenting with VT s/p cardioversion to NSR. -Admit to PCU -Amiodarone bolus and gtt -Pacer interrogation -Cardiology consultation - assistance appreciated -Remainder of plan as above PG Care Time/CCT Total # of Minutes Spent Total Time Spent with Patient: Total time spent is greater than 50% in coordination of care (as documented) at patient's floor/unit and/or counseling patient:
--- NOTE | 2019-01-19 16:41 | XRay Report ---
XR chest 1V portable CLINICAL HISTORY: Chest Pain COMPARISON STUDY: 03/16/2018 FINDINGS: Prior median sternotomy. Stable moderate cardiomegaly. Lungs are considered clear. Diaphragms are smooth. IMPRESSION: Postoperative changes. Moderate cardiomegaly. No acute process. The above report was generated using voice recognition software. It may contain grammatical, syntax or spelling errors. Electronically signed by: Jono Cantu M.D. 01/19/2019 4:39 PM
[2019-01-19 17:11] LABS: Magnesium 2.1 mg/dl (1.8-2.4)
[2019-01-19] MEDS ORDERED: AMIODARONE IV BOLUS / DRIP IV STA (17:17)
[2019-01-19] MEDS ORDERED: AMIODARONE / D5W 150 MG/100 ML BAG IV STA (17:17)
[2019-01-19] MEDS ORDERED: AMIODARONE / D5W 360 MG/200 ML BAG IV SCH ×2 (17:30→23:17)
[2019-01-19] MEDS ORDERED: ONDANSETRON INJ 2 MG/ML 2 ML VIAL IV PRN (18:32)
[2019-01-19] MEDS ORDERED: ACETAMINOPHEN 325 MG TAB PO PRN (18:32)
--- NOTE | 2019-01-19 22:32 | Emergency Department Note ---
Entered by Thu Kumar acting as a scribe for History of Present Illness General Chief complaint: Cardiac Assessment Stated complaint: VTACH Time Seen by Provider: 01/19/19 15:19 Source: patient and EMS History of Present Illness Onset (ago): hour(s) (earlier today) Location: chest Pain Consistency: + other (persistent) Quality: + other (arrhythmia and tachycardia) Relieved By: not by medication (Amiodarone) and not by other (cardioversion) Associated symptoms: + denies other symptoms (chest pain, shortness of breath, difficulty breathing, coughing, hemoptysis, loss of consciousness) and + other (lightheadedness (resolved)) The patient is a 38 year old male that is presenting to the Emergency Room with complaints of palpitations. The patient arrived via EMS who provided part of the story. 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 EMS states that the patient felt like his heart was in arrhythmia so he called their services. EMS notes that the patient was 140 systolic with a heart rate in the 140s upon their arrival. Currently he denies any chest pain, difficulty breathing, cough, hemoptysis, or loss of consciousness. He reports that he feels like he is in arrhythmia currently. He denies doing any strenuous activity prior to the onset of his symptoms and notes that he was sitting at his desk at work at the time. He reports that he has a history of WPW and has been in the hospital twice in the past year for similar symptoms in July 2017 and February 2018. He states that he was cardioverted in the ED each time. He reports that both episodes occurred during strenuous exercise, which makes this episode unusual. The patient notes that he takes Amiodarone currently, and he denies missing a dose. He states that he took Metoprolol in the past but was taken off the medication by his cardiologists in [place]. He notes that he is regularly followed by [place] but states that he has seen Dr. Correa, Cardiology, two times in the past. He notes that his last surgical ablation was 1.[address] Power in [place]. The patient denies using any blood thinners, hormone pills, hormone creams, or steroids. He denies any recent travel or any history of blood clots. Home Medications Home Medications Medication Instructions Recorded Confirmed Type amiodarone [Pacerone] 200 mg PO DAILY 01/19/19 01/19/19 History Allergies Allergy/AdvReac Type Severity Reaction Status Date / Time No Known Allergies Allergy Unverified 01/19/19 16:53 Past Med/Surg History Medical History Ebstein anomaly WPW (Ltkrn-Relihigjs-Xbzzr syndrome) Surgical History History of open heart surgery S/P radiofrequency ablation operation for arrhythmia Family History Other Diabetes Heart disease Social History Preferred Language: Kosovan Communication Ability: Effective Bi Consultant Required: No Beliefs That Will Affect Care: None marital status: Current Living Situation: Spouse current occupational status: employed Other Information That Helps Us Care for You: No Feels Safe at Home: Yes Safety Concerns: Feels Safe At This Time Smoking Status: Never smoker Second Hand Exposure: No ; Hx Alcohol Use: Yes Alcohol type: beer and wine Hx Substance Use: No Review of Systems See HPI for pertinent positives & negatives. and A total of 10 systems reviewed and were otherwise negative Physical Exam Vital Signs Vital Signs - 24 hr 01/19/19 15:22 01/19/19 15:23 01/19/19 15:25 Temperature 36.7 C Temperature Source Oral Pulse Rate 143 H 143 H 144 H Pulse Rate from SpO2 Sensor Pulse Rhythm Regular Respiratory Rate 19 Respiratory Effort / Characteristics Non-Labored Respiratory Depth Normal Respiratory Pattern Regular Blood Pressure 130/88 118/89 Blood Pressure Mean 109 105 Blood Pressure Position Sitting Pulse Oximetry 98 98 Oxygen Delivery Method Room Air Room Air Sepsis Recent Fever Within 48 Hours No Sepsis New/Unexplained Change in Mental Status No Sepsis Action Taken by Nursing No Action Required End-Tidal CO2 01/19/19 15:31 01/19/19 15:35 01/19/19 15:36 Temperature Temperature Source Pulse Rate 143 H 138 H 138 H Pulse Rate from SpO2 Sensor 138 H 138 H Pulse Rhythm Respiratory Rate Respiratory Effort / Characteristics Respiratory Depth Respiratory Pattern Blood Pressure 120/87 Blood Pressure Mean 90 Blood Pressure Position Pulse Oximetry 99 99 Oxygen Delivery Method Sepsis Recent Fever Within 48 Hours Sepsis New/Unexplained Change in Mental Status Sepsis Action Taken by Nursing End-Tidal CO2 01/19/19 15:39 01/19/19 15:40 01/19/19 15:42 Temperature Temperature Source Pulse Rate 134 H 135 H 136 H Pulse Rate from SpO2 Sensor 134 H 133 H 136 H Pulse Rhythm Respiratory Rate Respiratory Effort / Characteristics Respiratory Depth Respiratory Pattern Blood Pressure 122/87 125/88 Blood Pressure Mean 103 104 Blood Pressure Position Pulse Oximetry 99 100 100 Oxygen Delivery Method Sepsis Recent Fever Within 48 Hours Sepsis New/Unexplained Change in Mental Status Sepsis Action Taken by Nursing End-Tidal CO2 01/19/19 15:45 01/19/19 15:46 01/19/19 15:50 Temperature Temperature Source Pulse Rate 133 H 133 H 136 H Pulse Rate from SpO2 Sensor 134 H 134 H Pulse Rhythm Respiratory Rate Respiratory Effort / Characteristics Respiratory Depth Respiratory Pattern Blood Pressure 110/89 110/95 Blood Pressure Mean 93 103 Blood Pressure Position Pulse Oximetry 99 99 Oxygen Delivery Method Sepsis Recent Fever Within 48 Hours Sepsis New/Unexplained Change in Mental Status Sepsis Action Taken by Nursing End-Tidal CO2 40 01/19/19 15:51 01/19/19 15:53 01/19/19 15:55 Temperature Temperature Source Pulse Rate 138 H 137 H 136 H Pulse Rate from SpO2 Sensor 137 H 139 H 138 H Pulse Rhythm Respiratory Rate Respiratory Effort / Characteristics Respiratory Depth Respiratory Pattern Blood Pressure 120/90 Blood Pressure Mean 95 Blood Pressure Position Pulse Oximetry 100 100 100 Oxygen Delivery Method Sepsis Recent Fever Within 48 Hours Sepsis New/Unexplained Change in Mental Status Sepsis Action Taken by Nursing End-Tidal CO2 40 2,140 35 01/19/19 15:56 01/19/19 15:59 01/19/19 16:00 Temperature Temperature Source Pulse Rate 135 H 88 83 Pulse Rate from SpO2 Sensor 137 H 88 83 Pulse Rhythm Respiratory Rate Respiratory Effort / Characteristics Respiratory Depth Respiratory Pattern Blood Pressure 105/82 109/80 107/69 Blood Pressure Mean 86 84 79 Blood Pressure Position Pulse Oximetry 98 94 95 Oxygen Delivery Method Sepsis Recent Fever Within 48 Hours Sepsis New/Unexplained Change in Mental Status Sepsis Action Taken by Nursing End-Tidal CO2 35 35 42 01/19/19 16:01 01/19/19 16:05 01/19/19 16:10 Temperature Temperature Source Pulse Rate 83 79 79 Pulse Rate from SpO2 Sensor 83 80 79 Pulse Rhythm Respiratory Rate Respiratory Effort / Characteristics Respiratory Depth Respiratory Pattern Blood Pressure 108/74 106/71 Blood Pressure Mean 77 77 Blood Pressure Position Pulse Oximetry 99 99 99 Oxygen Delivery Method Sepsis Recent Fever Within 48 Hours Sepsis New/Unexplained Change in Mental Status Sepsis Action Taken by Nursing End-Tidal CO2 35 42 27 01/19/19 16:12 01/19/19 16:15 01/19/19 16:16 Temperature Temperature Source Pulse Rate 79 78 78 Pulse Rate from SpO2 Sensor 79 78 78 Pulse Rhythm Respiratory Rate Respiratory Effort / Characteristics Respiratory Depth Respiratory Pattern Blood Pressure 107/66 Blood Pressure Mean 77 Blood Pressure Position Pulse Oximetry 97 95 97 Oxygen Delivery Method Sepsis Recent Fever Within 48 Hours Sepsis New/Unexplained Change in Mental Status Sepsis Action Taken by Nursing End-Tidal CO2 35 40 30 01/19/19 16:20 01/19/19 16:25 01/19/19 16:27 Temperature Temperature Source Pulse Rate 77 75 78 Pulse Rate from SpO2 Sensor 77 75 78 Pulse Rhythm Respiratory Rate Respiratory Effort / Characteristics Non-Labored Spontaneous Respiratory Depth Normal Respiratory Pattern Regular Blood Pressure 95/70 L 98/68 L Blood Pressure Mean 78 77 Blood Pressure Position Pulse Oximetry 96 97 98 Oxygen Delivery Method Room Air Sepsis Recent Fever Within 48 Hours Sepsis New/Unexplained Change in Mental Status Sepsis Action Taken by Nursing End-Tidal CO2 36 35 40 01/19/19 16:31 01/19/19 16:35 01/19/19 16:40 Temperature Temperature Source Pulse Rate 74 77 79 Pulse Rate from SpO2 Sensor 75 77 79 Pulse Rhythm Respiratory Rate Respiratory Effort / Characteristics Respiratory Depth Respiratory Pattern Blood Pressure 99/66 L Blood Pressure Mean 76 Blood Pressure Position Pulse Oximetry 97 95 97 Oxygen Delivery Method Sepsis Recent Fever Within 48 Hours Sepsis New/Unexplained Change in Mental Status Sepsis Action Taken by Nursing End-Tidal CO2 40 35 38 01/19/19 16:45 01/19/19 16:46 01/19/19 16:50 Temperature Temperature Source Pulse Rate 74 74 73 Pulse Rate from SpO2 Sensor 75 73 74 Pulse Rhythm Respiratory Rate Respiratory Effort / Characteristics Respiratory Depth Respiratory Pattern Blood Pressure 99/61 L Blood Pressure Mean 79 Blood Pressure Position Pulse Oximetry 97 98 97 Oxygen Delivery Method Sepsis Recent Fever Within 48 Hours Sepsis New/Unexplained Change in Mental Status Sepsis Action Taken by Nursing End-Tidal CO2 21 40 35 Physical Exam GENERAL: He is oriented to person, place, and time. He appears well-developed and well-nourished. He does not appear distressed. HENT: Exam performed. - Head: Normocephalic and atraumatic. - Right Ear: External ear normal. No mastoid tenderness. - Left Ear: External ear normal. No mastoid tenderness. - Mouth/Throat: The oropharynx is clear and moist. No trismus in the jaw. No dental abscesses or uvula swelling. No oropharyngeal exudate or tonsillar abscesses. EYES: Conjunctivae and EOM are normal. Pupils are equal, round, and reactive to light. Right eye exhibits no discharge. Left eye exhibits no discharge. No scleral icterus. NECK: Normal range of motion. Neck supple. No JVD present. No spinous process tenderness present. No carotid bruit present. No rigidity. No tracheal deviation and normal range of motion present. No Brudzinski's sign and no Kernig's sign noted. CV: Tachycardic rate, regular rhythm, normal heart sounds and intact distal pulses. There is no peripheral edema. Palpable radial pulses bue. PULM/CHEST: Effort normal and breath sounds normal. No respiratory distress. No stridor. He has no wheezes. He has no rales. - Chest Wall: He exhibits no tenderness. ABD: The abdomen is soft. Bowel sounds are normal. He has no distension. No mass is present. There is no tenderness. There is no rebound, no guarding, no Lomeli's sign and no tenderness at McBurney's point. Rovsig negative MUSC/SKEL: Normal range of motion. There is no peripheral edema, tenderness or deformity. LYMPH: No cervical adenopathy. NEURO: He is alert and oriented to person, place, and time. He has normal st rength. No cranial nerve deficit or sensory deficit. Coordination and gait normal. GCS eye subscore is 4. GCS verbal subscore is 5. GCS motor subscore is 6. cerbellar tests wnl. SKIN: Skin is warm and dry. He is not diaphoretic PSYCH: He has a normal mood and affect. His behavior is normal. Judgment and thought content normal. Procedures Free Text Procedures Cardioversion with sedation Indication: Ventricular Tachycardia Written consent was obtained after the risks and benefits were explained, including but not limited to pain, thermal burn, allergic reaction, aspiration, airway obstruction, laryngospasm, infection, hypotension, and cardiorespiratory arrest. At this time, the risks of the procedure are less than the risks of NOT performing the procedure. A time out was taken and the correct patient and procedure identified. The patient was on 100% via NRB and end tidal CO2 monitoring prior to the procedure. Suction, airway equipment, medications, respiratory equipment, ACLS cart, and appropriate personnel were prepared prior to the initiation of the procedure. Sedation was achieved utilizing Versed and Propofol. The biphasic defibrillator was set to 100 joules of energy and syn ched. After confirmation of sedation and "all clear" safety check the synchronized shock was delivered. This resulted in successful conversion of the dysrhythmia back into sinus rhythm. See nursing notes for dosages and times. There were no complications and the patient recovered uneventfully from the procedure. Procedural Sedation Presedation Evaluation: cardioversion ASA Class: II Midazolam: IV Midazolam dose (mg): 5 IV Propofol dose (mg): 50 (given after midazolam 5 mg was unsuccesful in achieving sedation) Patient Tolerated Procedure: well and no complications Additional Comments: procedural sedation start 1550 procedural sedation end 1620 total time for procedural sedation: 30 mins Course Course 1518:The patient arrived via EMS and was evaluated in room A01. A complete history and physical examination was performed. Patient was in v. tach according to EKG completed prior to arrival. Patient is awake, alert, and oriented upon arrival. BP in ED is 136/102. Pads placed upon his arrival for cardioversion as necessary. 94006: BP is 139/102 and HR is 143bpm. 1527: EKG: Ventricular tachycardia at a rate of 143bpm. QRS 210, QTC 734. 1532: Started pushing 100mg-Procainamide over 2 minutes. BP is 118/89 and heart rate is 143 bpm. 1534: EK: V. tach at a rate of 139bpm. QRS 212, QTC 748. 1535: After first bolus of 100mg-Procainamide, BP is 120/86 and HR is 128 bpm. Another bolus of Procainamide is ordered. 1536: Second bolus of 100mg-Procainamide is started over 2 minutes. 1538: BP is 122/87 and HR is 135bpm after second bolus of 100mg-Procainamide. Another 100 mg bolus has been ordered. If this bolus is not successful, cardioversion will be attempted. Patient reports feeling tired but denies any chest pain. EKG: V. tach at a rate of 135bpm. QRS 210, QTC 753. 1542: Third bolus has been started over 2 minutes. 1545: Patients heart rate is 134 bpm and BP is 125/88 following third bolus. 1545: I discussed the patients case with Dr. Correa, Cardiology, who agrees with the current treatment plan including cardioversion. 1549: I reviewed the risks and benefits of sedation and cardioversion with the patient. Patient has signed consent form for sedation and cardioversion procedures. BP is currently 110/89 and heart rate is 136bpm. 1551: 2.5mg-Versed started at this time. Patient reports feeling only slightly sleepy. 1552: Additional 2.5mg-Versed given at this time. HR Is 137bpm and BP is 120/90. 1555: Patient remains awake after 5mg-Versed total. 50mg-Propofol has been ordered. 1556: 50mg-Propofol administered at this time. BP is 105/82 and heart rate is 135bpm. Patient reports that he is starting to feel pain in his left shoulder. 1557: Cardioversion at 100 joules. 1558: HR is 86bpm and BP is 107/69 Sinus rhythm has been established. EKG at this time: Sinus rhythm at a rate of 86bpm. 1st degree AV block and RBBB present. SD 273, QRS 178, QTC 670. No delta waves 1603: Repeat EKG completed: Sinus rhythm at a rate of 83bpm. 1st degree AV block and RBBB present. SD 278, QRS 178, QTC 594. No delta waves. 1605: BP is 108/74 and HR is 79bpm. Patient is slowly waking from sedation. He denies any discomfort currently. 1608: I updated the patients on his current status. 1609: I discussed the patients case with Dr. Do, [facility], who will evaluate the patient for further management and care. 1614: I updated Dr. Correa on the patients cardioversion and current status. 1626: BP is 98/68 currently. Administered Medications Amiodarone HCl/Dextrose (Nexterone / D5w) 360 mg in 200 mls @ 33.333 mls/hr IV .Q6H COURT Stop: 01/19/19 23:29 Last Admin: 01/19/19 19:41 Dose: 1 mg/min, 33.3 mls/hr Documented by: [id number] Cosigned by: [id number] Discontinued Medications Amiodarone HCl (Cordarone Iv Bolus / Drip) 1 ea IV NOW STA; Protocol Stop: 01/19/19 17:18 Last Admin: 01/19/19 19:36 Dose: Not Given Documented by: [id number] Amiodarone HCl/Dextrose (Nexterone / D5w) 150 mg in 100 mls @ 600 mls/hr IV ONE STA Stop: 01/19/19 17:26 Last Infusion: 01/19/19 19:41 Dose: 0 mls/hr Documented by: [id number] Cosigned by: [id number] Admin: 01/19/19 19:17 Dose: 600 mls/hr Documented by: [id number] Cosigned by: [id number] Midazolam HCl (Versed) Confirm Administered Dose 10 mg .ROUTE .STK-MED ONE Stop: 01/19/19 15:39 Last Admin: 01/19/19 16:25 Dose: Not Given Documented by: [id number] Midazolam HCl (Versed) 5 mg IV NOW STA Stop: 01/19/19 16:03 Last Admin: 01/19/19 15:52 Dose: 5 mg Documented by: [id number] Cosigned by: [id number] Procainamide HCl (Procainamide) Confirm Administered Dose 500 mg .ROUTE .STK-MED ONE Stop: 01/19/19 15:28 Last Admin: 01/19/19 16:21 Dose: Not Given Documented by: [id number] Procainamide HCl (Procainamide) 300 mg IV NOW STA Stop: 01/19/19 16:02 Last Admin: 01/19/19 16:19 Dose: 300 mg Documented by: [id number] Cosigned by: [id number] Propofol (Diprivan) Confirm Administered Dose 200 mg IV .STK-MED ONE Stop: 01/19/19 15:55 Last Admin: 01/19/19 16:41 Dose: Not Given Documented by: [id number] Propofol (Diprivan) 50 mg IV NOW STA Stop: 01/19/19 16:05 Last Admin: 01/19/19 16:25 Dose: Not Given Documented by: [id number] Critical Care Time Critical Care Time: Yes Total Critical Care Time: 40 I have personally spent 40 minutes of critical care time in the direct management of this patient. This includes bedside care, interpretation of diagnostic studies, and testing, discussion with consultants, patient, and family members, and other required patient management activities. This 40 minutes is in excess of all separately billable procedures. Medical Decision Making Medical Records Attestation: I reviewed the patient's medical records. Home Medications Current Medication List: was personally reviewed by me Laboratory Data Attestation: I reviewed the patient's lab results. Result diagrams: 01/19/19 15:30 01/19/19 15:30 Lab Results 01/19/19 01/19/19 Range/Units 15:30 15:30 WBC 8.39 (4.8-10.8) K/uL RBC 5.20 (4.7-6.1) M/uL Hgb 15.5 (14.0-18.0) g/dL Hct 47.2 (42-52) % MCV 90.8 (80-100) fL MCH 29.8 (25-34) pg MCHC 32.8 (32-36) g/dL RDW Std Deviation 43.4 (36.4-46.3) fL RDW Coeff of Pamela 13.2 (11.5-14.5) % Plt Count 226 (130-400) K/uL MPV 11.3 H (7.4-10.4) fL Immature Gran % (Auto) 0.2 % Neut % (Auto) 69.7 % Lymph % (Auto) 20.4 % Campbell % (Auto) 8.9 % Eos % (Auto) 0.6 % Baso % (Auto) 0.2 % Immature Gran # (Auto) 0.02 (0.00-0.02) K/uL Neut # (Auto) 5.84 (1.4-6.5) K/uL Lymph # (Auto) 1.71 (1.2-3.4) K/uL Campbell # (Auto) 0.75 H (0.11-0.59) K/uL Eos # (Auto) 0.05 (0-0.5) K/uL Baso # (Auto) 0.02 (0-0.2) K/uL Sodium 136 (136-145) mmol/L Potassium 3.8 (3.5-5.1) mmol/L Chloride 105 (98-107) mmol/L Carbon Dioxide 26 (21-32) mmol/L Anion Gap 5.0 (3-11) BUN 17 (7-18) mg/dl Creatinine 1.38 (0.6-1.4) mg/dl Est Cr Clr Drug Dosing Not Reportable Est GFR ( Amer) 75.2 Est GFR (Non-Af Amer) 64.9 BUN/Creatinine Ratio 12.5 (10-20) Glucose 183 H (70-99) mg/dl Calcium 9.1 (8.5-10.1) mg/dl Magnesium 2.1 (1.8-2.4) mg/dl Total Bilirubin 0.6 (0.2-1) mg/dl AST 20 (15-37) U/L ALT 27 (12-78) U/L Alkaline Phosphatase 120 H (45-117) U/L Troponin I < 0.015 (0-0.045) ng/ml Total Protein 7.9 (6.4-8.2) gm/dl Albumin 4.0 (3.4-5.0) gm/dl Globulin 3.9 (2.5-4.0) gm/dl Albumin/Globulin Ratio 1.0 (0.9-2) Lipase 148 (73-393) U/L Imaging Data Radiologist's Impression: Radiology results as stated below per my review and the radiologist's interpretation: XR chest 1V portable CLINICAL HISTORY: Chest Pain COMPARISON STUDY: 03/16/2018 FINDINGS: Prior median sternotomy. Stable moderate cardiomegaly. Lungs are considered clear. Diaphragms are smooth. IMPRESSION: Postoperative changes. Moderate cardiomegaly. No acute process. The above report was generated using voice recognition software. It may contain grammatical, syntax or spelling errors. Electronically signed by: Jono Cantu M.D. 01/19/2019 4:39 PM ECG Data Attestation: I personally reviewed and interpreted this ECG as follows: Indication: + tachycardia Rate (beats per minute): 143 Rhythm: + v-tach ECG Findings: + Other (QRS 212, QTC 748) Additional Comments: REPEAT EKGS: 1534: V. tach at a rate of 139bpm. QRS 212, QTC 748. 1538: V. tach at a rate of 135bpm. QRS 210, QTC 753. 1558 Sinus rhythm at a rate of 86bpm. 1st degree AV block and RBBB present. SD 273, QRS 178, QTC 670. No delta waves. 1603: Sinus rhythm at a rate of 83bpm. 1st degree AV block and RBBB present. SD 278, QRS 178, QTC 594. No delta waves. Blood Pressure Blood Pressure Findings: Normal blood pressure MDM Narrative Patient is a 38-year-old male who presented to the emergency department resuscitation bay in V. tach. The patient states he has a history of Ybijm-Kbsczefwd-Puhre syndrome. Patient states he has needed multiple cardiac ablations in the past for his Ailmb-Wfcneorhd-Uxtrl syndrome. He states he felt palpitations today, and called EMS. He states he was not doing anything strenuous when he was experiencing his palpitations. EMS arrived and found the patient to be in V. tach. Patient states he has been in V. tach with his WPW in the past. He states that they have attempted multiple doses of medications in the past to break his V. tach, and were each time unsuccessful and then had to be subsequently cardioverted. EMR is reviewed. Patient was seen in March 16 for similar episode of V. tach, multiple doses of amiodarone were given at that time and were unsuccessful in converting the patient from V. tach, he was eventually cardioverted in the emergency department back into sinus rhythm. Given the patient's history of WPW, there was concern on giving medications that would block the A-V conduction such as amiodarone, beta-blockers, calcium channel blockers. Thus, procainamide was ordered. 3 boluses of procainamide were given with no significant change in the patient's rhythm. The patient tolerated these boluses well, he remained normotensive. After the third bolus of procainamide was unsuccessful, the decision was made to sedate the patient and cardiovert him. Discussed with cardiology Dr. Velazquez who agreed with this plan to cardiovert as the pharmacological interventions have been unsuccessful. Midazolam 5 mg is initially used to sedate the patient, however sedation was not achieved with admitted as a Sawant and additional 50 mg bolus of propofol was given. The patient was then cardioverted with 100 J. The patient returned into a sinus rhythm. He had a prolonged QTC and first-degree AV block after cardioversion. Labs are within normal limits. Patient was admitted to the hospitalist medicine team Dr. Do. Impression & Plan Ventricular tachycardia, WPW (Cuyrl-Zlhlfwluz-Xfwar syndrome) Discharge Plan Visit Data *Final* Discharge Date/Time: 01/19/19 17:45 Chief Complaint: Cardiac Assessment Stated Complaint: VTACH ED Provider: Blair Bird Discharge Problem: Ventricular tachycardia, WPW (Pkqnl-Hfwulyjhs-Okmbx syndrome) Patient Disposition: Admitted As Inpatient Discharge Instructions Interventions: ED Discharge Assessment Last Done: 01/19/19 17:45 Pre Sedation Assessment Vital Signs Temp Pulse Resp BP Pulse Ox 01/19/19 16:50 73 97 01/19/19 16:46 74 98 01/19/19 16:45 74 99/61 L 97 01/19/19 16:40 79 97 01/19/19 16:35 77 95 01/19/19 16:31 74 99/66 L 97 01/19/19 16:27 78 98 01/19/19 16:25 75 98/68 L 97 01/19/19 16:20 77 95/70 L 96 01/19/19 16:16 78 97 01/19/19 16:15 78 107/66 95 01/19/19 16:12 79 97 01/19/19 16:10 79 106/71 99 01/19/19 16:05 79 108/74 99 01/19/19 16:01 83 99 01/19/19 16:00 83 107/69 95 01/19/19 15:59 88 109/80 94 01/19/19 15:56 135 H 105/82 98 01/19/19 15:55 136 H 100 01/19/19 15:53 137 H 120/90 100 01/19/19 15:51 138 H 100 01/19/19 15:50 136 H 110/95 01/19/19 15:46 133 H 99 01/19/19 15:45 133 H 110/89 99 01/19/19 15:42 136 H 100 01/19/19 15:40 135 H 125/88 100 01/19/19 15:39 134 H 122/87 99 01/19/19 15:36 138 H 99 01/19/19 15:35 138 H 120/87 99 01/19/19 15:31 143 H 01/19/19 15:25 36.7 C 144 H 19 118/89 98 01/19/19 15:23 143 H 01/19/19 15:22 143 H 130/88 98 Pre-Sedation Airway Assessment Smoking Status: Never smoker Notes The planned sedation has been discussed with the patient. Informed Consent was obtained. I have identified the patient, determined the appropriateness of sedation and have assessed the patient immediately prior to the procedure. All medicine(s) and interventions are by my order. Post Sedation Assessment Vital Signs Temp Pulse Resp BP Pulse Ox 01/19/19 16:50 73 97 01/19/19 16:46 74 98 01/19/19 16:45 74 99/61 L 97 01/19/19 16:40 79 97 01/19/19 16:35 77 95 01/19/19 16:31 74 99/66 L 97 01/19/19 16:27 78 98 01/19/19 16:25 75 98/68 L 97 01/19/19 16:20 77 95/70 L 96 01/19/19 16:16 78 97 01/19/19 16:15 78 107/66 95 01/19/19 16:12 79 97 01/19/19 16:10 79 106/71 99 01/19/19 16:05 79 108/74 99 01/19/19 16:01 83 99 01/19/19 16:00 83 107/69 95 01/19/19 15:59 88 109/80 94 01/19/19 15:56 135 H 105/82 98 01/19/19 15:55 136 H 100 01/19/19 15:53 137 H 120/90 100 01/19/19 15:51 138 H 100 01/19/19 15:50 136 H 110/95 01/19/19 15:46 133 H 99 01/19/19 15:45 133 H 110/89 99 01/19/19 15:42 136 H 100 01/19/19 15:40 135 H 125/88 100 01/19/19 15:39 134 H 122/87 99 01/19/19 15:36 138 H 99 01/19/19 15:35 138 H 120/87 99 01/19/19 15:31 143 H 01/19/19 15:25 36.7 C 144 H 19 118/89 98 01/19/19 15:23 143 H 01/19/19 15:22 143 H 130/88 98 Discharge Sedation Level of Care: Higher Level of Care Post Sedation Plan On clinical assessment, the patient appears to have tolerated the sedation without complications. Patient is recovering as anticipated. Patient will continue to be monitored by nursing and may be discharged when sedation discharge criteria are met per below protocol. Upon Completions of procedure up to 15 minutes continue every 5 minute vital signs and the P.A.R. score; then discharge to a Phase I or Fast Track to Phase II per the following guidelines: * Discharge Patient to appropriate Phase II area if PAR is 8 or greater or return to pre- procedure baseline. The post - procedure orders will be as directed. * If PAR score is less than 8 or not return to pre-procedure baseline then patient will follow Phase I monitoring till PAR is reached for Phase II. The Phase I may be done in procedure room or may call to secure a Phase I area. * If naloxone or flumazenil are used for reversal, hold in Phase I for continued monitoring from when last reversal dose was given for a minimum of 60 minutes or longer pending the nurse and/or physician discretion of patient condition before discharge to Phase II. Please call the Sedation Physician to re-evaluate and complete post-note for discharge to Phase II area. Do NOT discharge from procedure sedation or Phase 1 until post- sedation evaluation note is complete by procedure /sedation MD Sedation Discharge Instructions to be given to the patient at discharge to home. The scribe's documentation has been prepared under my direction and personally reviewed by me in its entirety. I confirm that the note above accurately reflects all work, treatment, procedures, and medical decision making performed by me.
[2019-01-20 00:04] VITALS: O2SAT 95
[2019-01-20 07:09] LABS: Hematocrit (blood only) 44.3 % (42-52); Hemoglobin 14.5 g/dL (14.0-18.0); Mean Corpuscular Hemoglobin 29.4 pg (25-34); Mean Corpuscular Hgb Conc 32.7 g/dL (32-36); Mean Corpuscular Volume 89.7 fL (80-100); Mean Platelet Volume 11.6 fL (7.4-10.4); Platelet Count 190 K/uL (130-400); RDW Coefficient of Variation 13.3 % (11.5-14.5); RDW Standard Deviation 43.8 fL (36.4-46.3); Red Blood Count 4.94 M/uL (4.7-6.1); White Blood Count 6.02 K/uL (4.8-10.8)
[2019-01-20 07:33] LABS: Albumin Level 3.3 gm/dl (3.4-5.0); BUN Creatinine Ratio 11.5 (10-20); Calcium 8.4 mg/dl (8.5-10.1); Creatinine Clr Calc Pharmacy 106.7 ml/min; Est GFR (African American) 95.7; Est GFR (Non-African American) 82.6; Potassium 3.9 mmol/L (3.5-5.1)
[2019-01-20 07:36] LABS: Albumin Globulin Ratio 0.9 (0.9-2); Bilirubin,Total 0.5 mg/dl (0.2-1); Globulin 3.5 gm/dl (2.5-4.0); Total Protein 6.8 gm/dl (6.4-8.2)
--- NOTE | 2019-01-20 11:04 | Cardiology Consultation ---
Date of Consultation January 20, 2019 Assessment & Plan (1) Ventricular tachycardia: Patient presented with sustained ventricular tachycardia. The morphology of his arrhythmia was identical to that recorded during his last hospitalization at our facility. He tolerated the arrhythmia quite well likely due to relatively preserved LV function and the relatively slow rate of the arrhythmia. However, he did require cardioversion. Why he had an episode yesterday is unclear. Electrolytes were normal. He is compliant with medical therapy. He was not exercising at the time. He did have his medical therapy reduced recently and whether this is coincidental or played a role in development of this arrhythmia is unknown. However, would seem prudent to Re start his beta- tk and increase his dose of amiodarone. The patient seemed to have felt well on beta-blockers in the past. There also was some concerns that the maurice of his arrhythmia was somehow adrenergic we mediated. However, this most recent episode occurred while he was at rest. He seems to be a poor candidate for an additional ablation or at the very least high risk for additional therapy in that regard. I think we will attempt to intensify his medical therapy. Hopefully he will have an extended period without arrhythmia again. 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 The patient previously undergone both surgical and radiofrequency ablation for WPW. He presented to our facility in 2017 with a wide complex tachycardia and was subsequently referred for additional ablation. At that time he underwent ablation what appeared to be inducible atrial flutter. Approximately 1 year ago the patient presented to our facility with a wide complex tachycardia. This morphology was more consistent with ventricular tachycardia and subsequent electrophysiologic testing did reveal a inducible right ventricular tachycardia. This tachycardia was difficult to control and was not ablated due to its location. Patient subsequently underwent implantation a epicardial ICD. This procedure was complicated by ventricular fibrillation requiring placement on cardiopulmonary bypass. Patient was subsequently started on amiodarone and beta-blockade. He has been followed in the outpatient setting and recently had his medications reduced. In general he has been feeling quite well. He has been increasing his activity slowly. He walks to work approximately [address] on a daily basis. Some of this involves as sending a hill. Generally does not have symptoms associated with that level of activity. He will occasionally notice some fleeting palpitations. He generally does not describe symptoms of dizziness or lightheadedness and has never received therapy from his ICD. He has not suffered syncope. He has not report symptoms such as chest pain or limiting dyspnea. Yesterday while sitting at his desk at work patient began to notice rapid palpitations. He recognized this is an arrhythmia and sought medical attention. He did not have associated symptoms such as dizziness, lightheadedness or presyncope. He did not suffer syncope. He had no associated chest pain or shortness of breath. He was ambulatory in conscious throughout the course of this arrhythmia. Emergency room evaluation did reveal ventricular tachycardia. Patient was administered procainamide without conversion. He subsequently underwent synchronized cardioversion. He is currently feeling well. He denies any specific symptoms at this time. Allergies Allergy/AdvReac Type Severity Reaction Status Date / Time No Known Allergies Allergy Unverified 01/19/19 16:53 Home Medications Home Medications Medication Instructions Recorded Confirmed Type amiodarone [Pacerone] 200 mg PO DAILY 01/19/19 01/19/19 History Patient History Medical History (Updated 01/20/19 @ 10:59 by González Correa MD) Ebstein anomaly WPW (Dmjya-Kbioakqbn-Izxtk syndrome) Surgical History History of open heart surgery S/P radiofrequency ablation operation for arrhythmia Family History Other Diabetes Heart disease Social History Preferred Language: Barbadian Communication Ability: Effective Rn Rehab Required: No Beliefs That Will Affect Care: None marital status: Current Living Situation: Spouse current occupational status: employed Other Information That Helps Us Care for You: No Feels Safe at Home: Yes Safety Concerns: Feels Safe At This Time Smoking Status: Never smoker Second Hand Exposure: No ; Hx Alcohol Use: Yes Alcohol type: beer and wine Hx Substance Use: No Review of Systems Review of Systems: All systems reviewed & are unremarkable except as noted in HPI & below Physical Exam Physical Exam: The patient is alert and oriented. Mood and affect appeared normal. He answered all questions appropriately. HEENT: Pupils are equal and reactive to light and accommodation. Extraocular movements are intact. The sclerae are anicteric. Neuro: Cranial nerves intact Neck: Patient's neck is supple. He has palpable carotid pulses bilaterally without bruits on auscultation. There is no evidence of jugular venous distention. The thyroid is not enlarged. Lungs: Clear to auscultation bilaterally. He has good air movement without use of accessory muscles. No rales wheezes or rhonchi. Chest: Well-healed sternotomy scar Cardiac: Heart demonstrates a regular rate and rhythm. Normal S1 and S2. No murmurs on examination. Pulses: The patient has palpable radial pulses bilaterally that are equal in intensity Extremities: There was no evidence of hypoperfusion. There is no cyanosis or clubbing. There is no edema. Skin: I did not appreciate any rashes on examination today. Results & Data Vital Signs (Past 12 Hours) Vital Signs Temp Pulse Pulse Resp BP BP Pulse Ox 01/20/19 08:16 36.8 C 62 18 111/71 95 01/20/19 04:11 36.6 C 62 18 110/66 95 01/20/19 00:03 36.6 C 62 20 109/71 95 01/20/19 00:00 62 Laboratory Results Abnormal Lab Results 01/19/19 01/19/19 01/20/19 15:30 15:30 06:13 WBC 8.39 6.02 RBC 5.20 4.94 Hgb 15.5 14.5 Hct 47.2 44.3 MCV 90.8 89.7 MCH 29.8 29.4 MCHC 32.8 32.7 RDW Std Deviation 43.4 43.8 RDW Coeff of Pamela 13.2 13.3 Plt Count 226 190 MPV 11.3 H 11.6 H Immature Gran % (Auto) 0.2 Neut % (Auto) 69.7 Lymph % (Auto) 20.4 [place] % (Auto) 8.9 Eos % (Auto) 0.6 Baso % (Auto) 0.2 Immature Gran # (Auto) 0.02 Neut # (Auto) 5.84 Lymph # (Auto) 1.71 [place] # (Auto) 0.75 H Eos # (Auto) 0.05 Baso # (Auto) 0.02 Sodium 136 Potassium 3.8 Chloride 105 Carbon Dioxide 26 Anion Gap 5.0 BUN 17 Creatinine 1.38 Est Cr Clr Drug Dosing Not Reportable Est GFR ( Amer) 75.2 Est GFR (Non-Af Amer) 64.9 BUN/Creatinine Ratio 12.5 Glucose 183 H Calcium 9.1 Magnesium 2.1 Total Bilirubin 0.6 AST 20 ALT 27 Alkaline Phosphatase 120 H Troponin I < 0.015 Total Protein 7.9 Albumin 4.0 Globulin 3.9 Albumin/Globulin Ratio 1.0 Lipase 148 01/20/19 06:13 WBC RBC Hgb Hct MCV MCH MCHC RDW Std Deviation RDW Coeff of Pamela Plt Count MPV Immature Gran % (Auto) Neut % (Auto) Lymph % (Auto) [place] % (Auto) Eos % (Auto) Baso % (Auto) Immature Gran # (Auto) Neut # (Auto) Lymph # (Auto) [place] # (Auto) Eos # (Auto) Baso # (Auto) Sodium 140 Potassium 3.9 Chloride 112 H Carbon Dioxide 23 Anion Gap 5.0 BUN 13 Creatinine 1.13 Est Cr Clr Drug Dosing 106.7 Est GFR ( Amer) 95.7 Est GFR (Non-Af Amer) 82.6 BUN/Creatinine Ratio 11.5 Glucose 91 Calcium 8.4 L Magnesium Total Bilirubin 0.5 AST 16 ALT 26 Alkaline Phosphatase 98 Troponin I Total Protein 6.8 Albumin 3.3 L Globulin 3.5 Albumin/Globulin Ratio 0.9 Lipase Diagnostic Findings Chest x-ray obtained at the time of admission did not reveal any acute cardiopulmonary process. ECG Additional Comments: Initial EKG demonstrated wide complex tachycardia consistent with ventricular tachycardia Subsequent EKG demonstrated normal sinus rhythm with first-degree AV block and right bundle branch block, prolonged QT interval PG Care Time/CCT Total # of Minutes Spent Total Time Spent with Patient: Total time spent is greater than 50% in coordination of care (as documented) at patient's floor/unit and/or counseling patient:
[2019-01-20 12:01] VITALS: TEMP 98.4
--- NOTE | 2019-01-20 14:09 | Discharge Summary ---
Date of Service January 20, 2019 Admission HPI Per Admitting Provider This is a 38 M with PMHx of Tinajero Parkinson White, Ebstein anomaly, v-tach with hx of cardioversion who presented in WPW to the ER this afternoon. The patient was administered 3 doses of procainamide without conversion, and then underwent electrical cardioversion with success. Patient follows with [facility], cardiology with Dr. Card. He most recently saw him within the last 2 to 3 months. He recently had medications adjusted, was taken off metoprolol completely as his heart rate was hitting a max of 90 bpm on a treadmill test, and amiodarone 200 mg was also reduced to only once a day where he had been previously taking it twice per day. Pt reports that he was eating lunch, drinking decaffeinated coffee today when he felt his heart go into an abnormal rhythm. He checked his apple watch which noted heart rate of 140. Patient then called EMS. He reports this feels like previous episodes of WPW. Currently he feels tired since having the cardioversion done and receiving propofol and Versed. Pertinent family history: His mother's side has a history of Drgdf-Exdsgwzra-Sbimq, he is unable to name specific family members but reports that multiple people have been affected by it. He drinks 1 glass of wine several nights per week, had one glass last evening. He denies any smoking. Patient does not consume large amounts of caffeine. Principal Diagnosis Ventricular Tachycardia, WPW Discharge Exam Constitutional WD/WN, vitals as above Eyes PERRL and EOM intact bilaterally ENMT external ear and nose normal, oropharynx normal Neck normal visual inspection and trachea midline Respiratory normal respiratory effort, lungs clear to auscultation Cardiovascular RRR, no murmur, no edema Vessels: dorsalis pedis pulses present Extremities: no calf tenderness old midline well healed surgical scar over sternum; 2+ carotid pulse bilaterally Musculoskeletal Head/Neck/Chest: normocephalic and head atraumatic Skin no rashes, warm and dry Neurologic moves all extremities and awake Psychiatric A+Ox3, euthymic affect Discharge Data Allergies Allergy/AdvReac Type Severity Reaction Status Date / Time No Known Allergies Allergy Unverified 01/19/19 16:53 Consultations 01/19/19 16:34 ED Decision to Admit Stat 01/19/19 18:32 Consult Cardiology Routine Consult Case Management - Discharge Planning Routine Hospital Course (1) Ventricular tachycardia: Hospital course was unremarkable following admission to floor. He had no further episodes of monomorphic Ventricular Tachycardia. Lab work was unremarkable without electrolyte abnormalities. He remained asymptomatic while on medical floor. Dr. Sunny Fagan Cardiology discussed case with Dr. Vazquez from [facility]. Dr. Vazquez recommended to go back on previous medication regimen which included: - Amiodarone 200mg PO, twice per day - Metoprolol tartrate 50mg, twice per day There was no recommendations to make changes to his ICD as the episode of Ventr icular Tachycardia was too slow to program to treat and also would be at high risk for recurrent ICD shocks. Recommendation also included to schedule a follow up visit with [facility]. (2) Implantable cardioverter-defibrillator (ICD) in situ: (3) Ebsteins anomaly: (4) DVT prophylaxis: (5) WPW (Npdwt-Yzolamofa-Uukfw syndrome): (6) History of cardioversion: Total Time Total Time Spent Total Time Spent (In Minutes): 35 Total Time Includes: Examination of the Patient, Discharge Planning, Medication Reconciliation and Communication With Other Providers Discharge Plan Discharge Items Patient Disposition: Home - Self-Care Reason For Visit: TINAJERO PARKINSON WHITE Discharge Diagnosis: Ventricular Tachycardia Activity: Resume your previous activity Non-emergency contact: Primary Care Provider and Employee Communications Specialist Call non-emergency contact if: you have any medication questions and your symptoms worsen Follow-up/Referrals: Juan Jackman [Primary Care Provider] - 01/25/19 9:30 am (Please, follow up with Dr. Jackman on FridayJanuary 25 at 9:30 am. *If you need to change this appointment, call the office at [phone].) Diet: Heart Healthy Addtl Attending Provider Instructions: Dr. Sunny Fagan Cardiology discussed your visit with Dr. Vazquez from [facility]. Dr. Vazquez recommended to go back on previous medication regimen which included: - Amiodarone 200mg PO, twice per day - Metoprolol tartrate 50mg, twice per day There was no recommendations to make changes to your ICD as your the episode of Ventricular Tachycardia was too slow to program to treat and also you would be at high risk for recurrent ICD shocks. Recommendation also included to schedule a follow up visit with your [facility]. If you experience return of symptoms of palpitations and high heart rate, please return to [facility] ED/Call 911. Pending Studies at Discharge: No Stand-Alone Forms: My Cj Leachy Roamer, Smoking Cessation Medications and DC Order Prescriptions: New metoprolol tartrate 50 mg tablet 50 mg PO BID 30 Days Qty: 60 RF: 0 Changed amiodarone [Pacerone] 200 mg tablet 200 mg PO BID 30 Days Qty: 60 RF: 0 Discharge Orders: Discharge Order (Routine); Ordered 01/20/19 Ordered By: Andres Ramos Admission Data Admit Date/Time: 01/19/19 16:51 Attending Provider: González Dias Admit Provider: Betty Do Primary Care Provider: Juan Jackman Other Providers: Betty Do ; González Correa Other Interventions: Discharge Summary Assessment (RN) Last Done: 01/20/19 14:24 DC Date/Time DO NOT enter until pt leaves facility: 01/20/19 14:59 Supervising Physician Co-Signing Physician Notes Attending attestation Pt seen and examined in concert with Dr. Ramos. In agreement with the documented findings as noted in the resident documentation with any exceptions or additions as noted here. No acute complaints at bedside, resolution of palpitations. On examination, S1/S2 nl RRR no MCG. CTAB. Abd NT/ND BS+ve Ventricular tachycardia in the setting of Ebstein's anomaly, WPW - continue amiodarone 200mg BID and restart metoprolol at 50mg BID. Follow up with [facility] Else see resident documentation as noted. Resident Activity Tracking Resident Involvement: Resident Care Provided Care Provided: Adult Hospital Medicine
[2019-01-20 14:34] VITALS: BP 111/71; PULSE 65
== END 2019-01-20 14:59 | disposition home or self-care (01) | DRG 310 ==
LOC: ED 15:17 → SUATTDRO 16:51 → 2S 16:51
DX: I45.6 Pre-excitation syndrome; Z87.74 Personal history of (corrected) congenital malformations of heart and circulatory system; Z82.49 Family history of ischemic heart disease and other diseases of the circulatory system; Z79.899 Other long term (current) drug therapy; Z92.89 Personal history of other medical treatment; Z95.810 Presence of automatic (implantable) cardiac defibrillator

== ENCOUNTER 2021-06-24 10:08 | Inpatient (IN) ==
[2021-06-24] MEDS ORDERED: PROPOFOL IV EMULSION 10 MG/ML 20 ML VIAL IV ONE (10:30)
[2021-06-24] MEDS ORDERED: fentaNYL citrate 100 MCG/2 ML VIAL ONE (10:30)
[2021-06-24] MEDS ORDERED: ONDANSETRON INJ 2 MG/ML 2 ML VIAL ONE (10:31)
[2021-06-24 10:45] LABS: Basophils # (auto) 0.01 K/uL (0-0.2); Basophils % (auto) 0.1 %; Eosinophils # (auto) 0.08 K/uL (0-0.5); Eosinophils % (auto) 1.1 %; Hematocrit (blood only) 48.4 % (42-52); Immature Granulocytes # (auto) 0.01 K/uL (0.00-0.02); Immature Granulocytes % (auto) 0.1 %; Lymphocytes # (auto) 1.83 K/uL (1.2-3.4); Lymphocytes % (auto) 25.4 %; Mean Corpuscular Hemoglobin 27.6 pg (25-34); Mean Corpuscular Hgb Conc 33.1 g/dL (32-36); Mean Corpuscular Volume 83.6 fL (80-100); Monocytes # (auto) 0.97 K/uL (0.11-0.59); Monocytes % (auto) 13.5 %; Neutrophils % (auto) 59.8 %; Platelet Count 221 K/uL (130-400); RDW Coefficient of Variation 14.7 % (11.5-14.5); RDW Standard Deviation 45.3 fL (36.4-46.3); Red Blood Count 5.79 M/uL (4.7-6.1)
--- NOTE | 2021-06-24 10:49 | Emergency Department Note ---
Pre Sedation Assessment Vital Signs Temp Pulse Pulse Resp BP BP Pulse Ox 06/24/21 10:43 82 14 114/72 100 06/24/21 10:39 84 16 116/93 96 06/24/21 10:34 149 H 24 107/91 100 06/24/21 10:11 36.4 C L 144 H 18 118/60 98 Cardiovascular + tachycardic + S1 normal Respiratory normal respiratory effort, lungs clear to auscultation Pre-Sedation Airway Assessment Smoking Status: Never smoker Hx Sleep Apnea: No Hx Difficult Intubation: No Short, Thick Neck: No Oral Cavity: no Loose Teeth, no Chipped Teeth, no Dentures or no Dental Abnormalities Mallampati Class: IV ASA: ASA3 NPO Status Date of Last Intake of Fluids: 06/24/21 Time of Last Intake of Fluids: 09:00 Procedure Planning Contraindications for Sedation: none Current Medications Reviewed: Yes Notes The planned sedation has been discussed with the patient. Informed Consent was obtained. I have identified the patient, determined the appropriateness of sedation and have assessed the patient immediately prior to the procedure. All medicine(s) and interventions are by my order.
--- NOTE | 2021-06-24 10:50 | Emergency Department Note ---
Post Sedation Assessment Vital Signs Temp Pulse Pulse Resp BP BP Pulse Ox 06/24/21 10:43 82 14 114/72 100 06/24/21 10:39 84 16 116/93 96 06/24/21 10:34 149 H 24 107/91 100 06/24/21 10:11 36.4 C L 144 H 18 118/60 98 Recovery Score Activity: Moves 4 extremities Respiration: Deep Breath/Cough Circulation: +/-20% PreAnes Value Consciousness: Fully Awake Oxygen Saturation: > 92% On Room Air Discharge Sedation Level of Care: Phase I Unexpected Event: None Post Sedation Plan On clinical assessment, the patient appears to have tolerated the sedation without complications. Patient is recovering as anticipated. Patient will continue to be monitored by nursing and may be discharged when sedation discharge criteria are met per below protocol. Upon Completions of procedure up to 15 minutes continue every 5 minute vital signs and the P.A.R. score; then discharge to a Phase I or Fast Track to Phase II per the following guidelines: * Discharge Patient to appropriate Phase II area if PAR is 8 or greater or r eturn to pre- procedure baseline. The post - procedure orders will be as directed. * If PAR score is less than 8 or not return to pre-procedure baseline then patient will follow Phase I monitoring till PAR is reached for Phase II. The Phase I may be done in procedure room or may call to secure a Phase I area. * If naloxone or flumazenil are used for reversal, hold in Phase I for continued monitoring from when last reversal dose was given for a minimum of 60 minutes or longer pending the nurse and/or physician discretion of patient condition before discharge to Phase II. Please call the Sedation Physician to re-evaluate and complete post-note for discharge to Phase II area. Do NOT discharge from procedure sedation or Phase 1 until post- sedation evaluation note is complete by procedure /sedation MD Sedation Discharge Instructions to be given to the patient at discharge to home.
--- NOTE | 2021-06-24 10:52 | Emergency Department Note ---
ED Visit Note ED Physician Procedure Note: Procedural Sedation Indication: Ventricular Tachycardia. Last Ate: 9am - 1.5 hrs prior to arrival Previous issues with sedation: None Snore/Sleep Apnea: snores Smoker: No Emergent: Yes ASA: 3 - as currently in Vtach Dentures: None Time Out: 10:35am Time Recovered: 10:45am Total time: 10 minutes active sedation. Written consent was obtained after the risks and benefits were explained to the patient, including, but not limited to aspiration, allergic reaction, breathing difficulties, cardiac complications, vomiting, pain, event recall, bleeding, and/or infection. Pre-sedation examination and paperwork completed. The patient was on 100% oxygen via NRB prior to the procedure. Continuos end tidal CO2 monitoring, pulse oximetry, and cardiac monitoring were utilized. Suction, airway equipment, medications, respiratory equipment, and appropriate personnel were prepared prior to the initiation of the procedure. A time out was taken. Given 75 g fentanyl and 4 mg Zofran as preanesthetic. Sedation was achieved utilizing 70 mg of proprofol. After I observed the patient had reached the appropriate level of sedation the main procedure was performed without complication. Sedation was discontinued and the monitoring continued. The patient recovered quickly from the effects of the medication without complication or adverse event. Clarence Pacheco MD
--- NOTE | 2021-06-24 10:55 | Emergency Department Note ---
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 He has been on amiodarone in the past with a had to stop it due to thyroid toxicity they recently increased his metoprolol. He tells me after the ablation they checked and he had no pathways. He has had no recent illness. No fever or chills. 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 He tells me that in the past they have tried multiple medications but they never work and he needs to be cardioverted. Home Medications Medication Instructions Recorded Confirmed Type metoprolol tartrate 50 mg tablet 50 mg PO BID 07/10/19 06/24/21 History methimazole 5 mg tablet 5 mg PO BID 06/24/21 06/24/21 History Allergies Allergy/AdvReac Type Severity Reaction Status Date / Time No Known Allergies Allergy Unverified 06/24/21 11:41 Past Med/Surg History Medical History (Updated 06/24/21 @ 14:35 by Thomas Thakkar MD) Amiodarone-induced thyroiditis Ebstein anomaly Implantable cardioverter-defibrillator (ICD) in situ Ventricular tachycardia WPW (Lygxt-Ximimdlvm-Hntqv syndrome) Surgical History History of open heart surgery S/P radiofrequency ablation operation for arrhythmia Family History Other Diabetes Heart disease Social History Smoking Status: Never smoker Second Hand Exposure: No; Do You Dip or Chew Tobacco: No; Tobacco Cessation Education Requested by Patient: No Hx Alcohol Use: Yes Alcohol type: beer and wine Hx Substance Use: No Preferred Language: Hungarian Communication Ability: Effective Hearing Ability: Normal Boat Master Required: No Beliefs That Will Affect Care: None marital status: Current Living Situation: Family current occupational status: employed 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 Other Information That Helps Us Care for You: Yes Feels Safe at Home: Yes Safety Concerns: Feels Safe At This Time Assistive Devices: None Review of Systems A total of 10 systems reviewed and were otherwise negative Physical Exam Vital Signs Vital Signs - 24 hr 06/24/21 10:11 06/24/21 10:34 06/24/21 10:35 Temperature 36.4 C L Temperature Source Temporal Artery Scan Pulse Rate 144 H Pulse Rate [Left Finger] 149 H Pulse Rhythm [Left Finger] Pulse Strength [Left Finger] Respiratory Rate 18 24 Respiratory Effort / Characteristics Non-Labored Spontaneous Non-Labored Respiratory Depth Normal Normal Respiratory Pattern Regular Blood Pressure 118/60 Blood Pressure [Left Arm] 107/91 Blood Pressure Mean 79 Blood Pressure Mean [Left Arm] 96 Blood Pressure Position Sitting Blood Pressure Position [Left Arm] Pulse Oximetry 98 100 100 Oxygen Delivery Method Room Air Room Air Nasal Cannula Oxygen Flow Rate 2 Sepsis Recent Fever Within 48 Hours No Sepsis New/Unexplained Change in Mental Status No Sepsis Action Taken by Nursing No Action Required 06/24/21 10:39 06/24/21 10:43 06/24/21 10:48 Temperature Temperature Source Pulse Rate Pulse Rate [Left Finger] 84 82 82 Pulse Rhythm [Left Finger] Pulse Strength [Left Finger] Respiratory Rate 16 14 12 Respiratory Effort / Characteristics Non-Labored Non-Labored Respiratory Depth Normal Normal Respiratory Pattern Blood Pressure Blood Pressure [Left Arm] 116/93 114/72 113/76 Blood Pressure Mean Blood Pressure Mean [Left Arm] 100 86 88 Blood Pressure Position Blood Pressure Position [Left Arm] Pulse Oximetry 96 100 100 Oxygen Delivery Method Nasal Cannula Nasal Cannula Nasal Cannula Oxygen Flow Rate 2 2 2 Sepsis Recent Fever Within 48 Hours Sepsis New/Unexplained Change in Mental Status Sepsis Action Taken by Nursing 06/24/21 10:56 06/24/21 11:02 06/24/21 11:30 Temperature Temperature Source Pulse Rate Pulse Rate [Left Finger] 78 77 78 Pulse Rhythm [Left Finger] Regular Pulse Strength [Left Finger] Normal Respiratory Rate 22 12 18 Respiratory Effort / Characteristics Non-Labored Non-Labored Spontaneous Respiratory Depth Normal Normal Respiratory Pattern Regular Blood Pressure Blood Pressure [Left Arm] 118/71 123/71 111/68 Blood Pressure Mean Blood Pressure Mean [Left Arm] 86 88 82 Blood Pressure Position Blood Pressure Position [Left Arm] Sitting Pulse Oximetry 100 100 100 Oxygen Delivery Method Nasal Cannula Nasal Cannula Room Air Oxygen Flow Rate 2 2 Sepsis Recent Fever Within 48 Hours Sepsis New/Unexplained Change in Mental Status Sepsis Action Taken by Nursing General: Well developed well nourished young male who appears in no acute distress, breathing comfortably on room air. Normal speech HEENT: Normal cephalic atraumatic. Pupils are equal round and reactive to light. Extraocular movements are intact. Oropharynx is pink with moist mucous membranes. No swelling of the mouth lips or tongue. Neck: Supple with a midline trachea. No meningeal signs or stiffness, no JVD or bruits. No Stridor. Chest: Clear to auscultation bilaterally. No wheezes or rhonchi. No increased work of breathing. Heart: Tachycardic and regular or wide-complex tachycardia seen on the monitor consistent with V. tach. Scar from previous thoracotomy. No murmurs or gallops. Abdomen: Soft nontender, nondistended without rebound guarding or rigidity. Extremities: No cyanosis clubbing or edema. No calf tenderness or assymetry Spine/Back. Non tender to palpation. No CVA tenderness Skin: Good turgor without rashes. Neurologic exam: Cranial nerves two through 12 are intact. Motor and sensation are intact and symmetrical throughout. Procedures Free Text Procedures ED proceduresynchronized cardioversion Due to the patient's V. tach and concern for deterioration into a further unstable situation as well as his history of not being converted with medications I discussed the risk and the benefits with the patient and he freely consented to cardioversion. The patient was sedated with propofolplease refer to Dr. Pacheco's note. 100 J of synchronized cardioversion was given and the patient converted to normal sinus. He tolerated this well without any difficulties or complications and quickly woke up from the propofol without any complaints. Follow-up EKG does confirm sinus rhythm. Course Administered Medications Discontinued Medications Fentanyl Citrate (Fentanyl Citrate 100 Mcg/2 Ml Vial) Confirm Administered Dose 100 mcg .ROUTE .[employer] ONE Stop: 06/24/21 10:31 Last Increment: 06/24/21 10:33 Dose: 75 mcg Documented by: [id number] Ondansetron HCl (Ondansetron Inj 2 Mg/Ml 2 Ml Vial) Confirm Administered Dose 4 mg .ROUTE .STK-MED ONE Stop: 06/24/21 10:32 Last Admin: 06/24/21 10:33 Dose: 4 mg Documented by: [id number] Propofol (Propofol Iv Emulsion 10 Mg/Ml 20 Ml Vial) Confirm Administered Dose 200 mg IV .STK-MED ONE Stop: 06/24/21 10:31 Last Admin: 06/24/21 10:35 Dose: 70 mg Documented by: [id number] Cosigned by: [id number] Critical Care Time Critical Care Time: Yes Total Critical Care Time: 30 Due to the patient's presentation of ventricular tachycardia, need for emergent treatment, consultation with the hospitalist and senior program analyst, frequent reassessment and evaluation, I have personally spent greater than 30 minutes of critical care time in the direct management of this patient. This includes bedside care, interpretation of diagnostic studies, and testing, discussion with consultants, patient, and family members, and other required patient management activities. This 30 minutes is in excess of all separately billable procedures. Medical Decision Making Differential Diagnosis V. tach, WPW, A. fib, aberrancy, acute coronary syndrome, pulmonary disease, CHF, electrolyte or metabolic abnormality, COVID Medical Records Attestation: I reviewed the patient's medical records. Home Medications Current Medication List: was personally reviewed by me Laboratory Data Attestation: I reviewed the patient's lab results. Result diagrams: 06/24/21 10:22 06/24/21 10:22 Lab Results 06/24/21 06/24/21 06/24/21 Range/Units 10: 10:22 10:22 WBC 7.20 (4.8-10.8) K/uL RBC 5.79 (4.7-6.1) M/uL Hgb 16.0 (14.0-18.0) g/dL Hct 48.4 (42-52) % MCV 83.6 (80-100) fL MCH 27.6 (25-34) pg MCHC 33.1 (32-36) g/dL RDW Std Deviation 45.3 (36.4-46.3) fL RDW Coeff of Pamela 14.7 H (11.5-14.5) % Plt Count 221 (130-400) K/uL MPV 11.0 H (7.4-10.4) fL Immature Gran % (Auto) 0.1 % Neut % (Auto) 59.8 % Lymph % (Auto) 25.4 % [place] % (Auto) 13.5 % Eos % (Auto) 1.1 % Baso % (Auto) 0.1 % Neut # (Auto) 4.30 (1.4-6.5) K/uL Lymph # (Auto) 1.83 (1.2-3.4) K/uL [place] # (Auto) 0.97 H (0.11-0.59) K/uL Eos # (Auto) 0.08 (0-0.5) K/uL Baso # (Auto) 0.01 (0-0.2) K/uL Immature Gran # (Auto) 0.01 (0.00-0.02) K/uL PT 10.9 (9.0-12.0) Seconds INR 1.0 (0.9-1.1) APTT 29.9 (21.0-31.0) Seconds PTT Ratio 1.1 Sodium (136-145) mmol/L Potassium (3.5-5.1) mmol/L Chloride (98-107) mmol/L Carbon Dioxide (21-32) mmol/L Anion Gap (3-11) BUN (6-23) mg/dl Creatinine (0.6-1.4) mg/dl Est Cr Clr Drug Dosing ml/min Est GFR ( Amer) ml/min Est GFR (Non-Af Amer) ml/min BUN/Creatinine Ratio (10-20) Glucose (70-99(Fasting)) mg/dl Calcium (8.5-10.1) mg/dl Total Bilirubin (0.2-1.0) mg/dl AST (13-39) U/L ALT (7-52) U/L Alkaline Phosphatase (34-104) U/L Troponin I High Sens 5.5 (0-20) pg/ml Total Protein (6.0-8.3) gm/dl Albumin (3.4-5.0) gm/dl Globulin (2.5-4.0) gm/dl Albumin/Globulin Ratio (0.9-2) Lipase (11-82) U/L TSH (0.300-4.500) uIu/ml Free T4 (0.61-1.60) ng/dl SARS-CoV-2, RNA, NAAT (NEGATIVE) 06/24/21 06/24/21 06/24/21 Range/Units 10: 10: 11:10 WBC (4.8-10.8) K/uL RBC (4.7-6.1) M/uL Hgb (14.0-18.0) g/dL Hct (42-52) % MCV (80-100) fL MCH (25-34) pg MCHC (32-36) g/dL RDW Std Deviation (36.4-46.3) fL RDW Coeff of Pamela (11.5-14.5) % Plt Count (130-400) K/uL MPV (7.4-10.4) fL Immature Gran % (Auto) % Neut % (Auto) % Lymph % (Auto) % [place] % (Auto) % Eos % (Auto) % Baso % (Auto) % Neut # (Auto) (1.4-6.5) K/uL Lymph # (Auto) (1.2-3.4) K/uL [place] # (Auto) (0.11-0.59) K/uL Eos # (Auto) (0-0.5) K/uL Baso # (Auto) (0-0.2) K/uL Immature Gran # (Auto) (0.00-0.02) K/uL PT (9.0-12.0) Seconds INR (0.9-1.1) APTT (21.0-31.0) Seconds PTT Ratio Sodium 139 (136-145) mmol/L Potassium 3.8 (3.5-5.1) mmol/L Chloride 105 (98-107) mmol/L Carbon Dioxide 27 (21-32) mmol/L Anion Gap 7 (3-11) BUN 12 (6-23) mg/dl Creatinine 0.87 (0.6-1.4) mg/dl Est Cr Clr Drug Dosing 121.4 ml/min Est GFR ( Amer) 126.0 ml/min Est GFR (Non-Af Amer) 108.7 ml/min BUN/Creatinine Ratio 13.8 (10-20) Glucose 111 H (70-99(Fasting)) mg/dl Calcium 9.5 (8.5-10.1) mg/dl Total Bilirubin 0.8 (0.2-1.0) mg/dl AST 18 (13-39) U/L ALT 17 (7-52) U/L Alkaline Phosphatase 156 H (34-104) U/L Troponin I High Sens (0-20) pg/ml Total Protein 8.0 (6.0-8.3) gm/dl Albumin 4.4 (3.4-5.0) gm/dl Globulin 3.6 (2.5-4.0) gm/dl Albumin/Globulin Ratio 1.2 (0.9-2) Lipase 37 (11-82) U/L TSH < 0.010 L (0.300-4.500) uIu/ml Free T4 1.45 (0.61-1.60) ng/dl SARS-CoV-2, RNA, NAAT NEGATIVE (NEGATIVE) 06/24/21 Range/Units 11:10 WBC (4.8-10.8) K/uL RBC (4.7-6.1) M/uL Hgb (14.0-18.0) g/dL Hct (42-52) % MCV (80-100) fL MCH (25-34) pg MCHC (32-36) g/dL RDW Std Deviation (36.4-46.3) fL RDW Coeff of Pamela (11.5-14.5) % Plt Count (130-400) K/uL MPV (7.4-10.4) fL Immature Gran % (Auto) % Neut % (Auto) % Lymph % (Auto) % [place] % (Auto) % Eos % (Auto) % Baso % (Auto) % Neut # (Auto) (1.4-6.5) K/uL Lymph # (Auto) (1.2-3.4) K/uL [place] # (Auto) (0.11-0.59) K/uL Eos # (Auto) (0-0.5) K/uL Baso # (Auto) (0-0.2) K/uL Immature Gran # (Auto) (0.00-0.02) K/uL PT (9.0-12.0) Seconds INR (0.9-1.1) APTT (21.0-31.0) Seconds PTT Ratio Sodium (136-145) mmol/L Potassium (3.5-5.1) mmol/L Chloride (98-107) mmol/L Carbon Dioxide (21-32) mmol/L Anion Gap (3-11) BUN (6-23) mg/dl Creatinine (0.6-1.4) mg/dl Est Cr Clr Drug Dosing ml/min Est GFR ( Amer) ml/min Est GFR (Non-Af Amer) ml/min BUN/Creatinine Ratio (10-20) Glucose (70-99(Fasting)) mg/dl Calcium (8.5-10.1) mg/dl Total Bilirubin (0.2-1.0) mg/dl AST (13-39) U/L ALT (7-52) U/L Alkaline Phosphatase (34-104) U/L Troponin I High Sens Cancelled (0-20) pg/ml Total Protein (6.0-8.3) gm/dl Albumin (3.4-5.0) gm/dl Globulin (2.5-4.0) gm/dl Albumin/Globulin Ratio (0.9-2) Lipase (11-82) U/L TSH (0.300-4.500) uIu/ml Free T4 (0.61-1.60) ng/dl SARS-CoV-2, RNA, NAAT (NEGATIVE) Imaging Data Attestation: I personally reviewed and interpreted this imaging study as follows: My Impression: Chest x-raycardiomegaly but no overt CHF, pneumonia or pneumothorax seen Radiologist's Impression: Chest X-Ray 06/24/21 10:25 XR chest 1V portable CLINICAL HISTORY: Atypical chest pain. COMPARISON STUDY: Chest radiograph July 10, 2019. FINDINGS: Lung volumes are normal. No pneumothorax or pleural effusion is noted. There is no consolidation or evidence for pulmonary edema. Median sternotomy wires are noted. Epicardial wires are again noted. Cardiomegaly is unchanged. The appearance of the chest is unchanged. IMPRESSION: No acute cardiopulmonary findings. Stable cardiomegaly. ACT 112: Negative or not required by law. Electronically signed by: Steve Bradshaw M.D. 06/24/2021 11:16 AM ECG Data Attestation: I personally reviewed and interpreted this ECG as follows: Indication: + tachycardia Rate (beats per minute): 149 Rhythm: + v-tach ECG ST segments: + Nonspecific ST abnormalities ECG Findings: no PACs Comparison ECG Date: from (07/10/19) Change: the following changes noted (V. tach has replaced A. fib) Additional Comments: Issue #2: Normal sinus rhythm with a rate of 83 first-degree AV block. Right bundle branch block. Nonspecific T wave and ST changes no significant change compared to 07/10/19 MDM Narrative This Patient comes in as described above. He was placed initially in room C9. I quickly went and evaluated him after looking at his history he does have history of significant cardiac arrhythmias including V. tach. He was hemo dynamically stable was clearly wide-complex regular tachycardia which is likely V. tach. He has recent thyroid issues that have been getting better he tells me which could be playing a role here as well. IV access were established we did move him to room A1. I talked to him at length he said that cardioversion is the only thing that typically helps and the meds do not. I did discuss case with Dr. Butler the senior program analyst he agrees with the cardioversion. Dr. Pacheco did provide the sedation using propofol which the patient tolerated well. Please refer to his note. The patient was cardioverted using 100 J of synchronized joules. He tolerated this well and it cardioverted him back to normal sinus rhythm. Dr. Butler did also see him in the ED. the patient remained stable his initial troponin is normal. Chest x-ray does not show any congestive heart failure but he does have cardiomegaly. He has no significantl electrolyte or metabolic abnormalities TSH is low and he does not appear to be in thyroid storm but he likely is hyperthyroid and may play a role here as well. He says this is been getting slowly better from a thyroid standpoint and has been off the amiodarone which seems of a new cyst. His COVID testing was negative. I do think he needs to be admitted/observed I did consult Dr. Olsen from [facility] hospitalist group she saw the patient in ER and will admit/observe him for these measures. Continuous cardiac monitoring: Orders placed in the EMR for continuous cardiac monitoring. Upon my interpretation the patient was noted to be in a wide- complex tachycardia consistent with V. tach. This later was observed in normal sinus rhythm with a rate of 75 after the cardioversion. Impression & Plan Ventricular tachycardia, WPW (Zofbi-Vzhwarums-Wbfhf syndrome), Ebsteins anom becky, Implantable cardioverter-defibrillator (ICD) in situ, Lab test negative for COVID-19 virus Discharge Plan Visit Data Chief Complaint: Arrhythmia/Palpitations Stated Complaint: ELEVATED HEART RATE ED Provider: Edis Dumont Discharge Problem: Ventricular tachycardia, WPW (Epgnq-Ijyntnhpa-Kitct syndrome), Ebsteins anomaly, Implantable cardioverter-defibrillator (ICD) in situ, Lab test negative for COVID-19 virus Patient Disposition: Admitted As Inpatient Discharge Instructions Interventions: ED Discharge Assessment Last Done: 06/24/21 12:20
--- NOTE | 2021-06-24 11:03 | Cardiology Consultation ---
Date of Consultation June 24, 2021 Assessment & Plan (1) Ventricular tachycardia: (2) Ebsteins anomaly: (3) Implantable cardioverter-defibrillator (ICD) in situ: ASSESSMENT/PLAN: 1. Ventricular tachycardia: Appears to be right ventricular tachycardia. Continue beta-tk. He received his dose today. Avoid amiodarone unless life-saving therapy given history of thyroiditis. He is now in sinus rhythm following cardioversion in the emergency department. Complex history. Will ask electrophysiology to weigh in tomorrow when they are available. He follows with Dr. Vazquez at [facility]. Had recent ablation attempt per patient report, but details not known at the time of this note. ICD did not provide shock, but given that the VT was slow, it was likely below the limit detection settings. Recommend interrogation of the device while hospitalized. 2. Ebstein's anomaly s/p surgical correction: Underwent surgery in his early 20s. Followed by the Adult Congenital heart disease program [facility]. 3. ASD s/p closure: Performed at the age of 7. 4. ICD: Recommend interrogation. 5. Disposition: He is being admitted by the hospitalist service per Dr. Dumont. On discharge, recommend that he follow-up with his router operator pin, Dr. Vazquez. Will ask electrophysiology for input tomorrow. Patient care directly communicated with Dr. Dumont of the emergency department. Highly complex medical issues. Thank you for allowing me to participate in the care of your patient. Please call for any other questions or concerns. Sincerely, Sen Butler M.D. History of Present Illness Reason for Consultation: Ventricular Tachycardia Requesting Physician: Dr. Dumont Attending Physician: Dr. Dumont History of Present Illness Mr. Amezquita is a very pleasant 40-year-old gentleman with a history significant for Ebstein's anomaly s/p surgical procedure, (Julio procedure and tricuspid valve repair in his 20s at [facility] in [place]), ASD closure (age 7 in [place], [place]), WPW s/p ablation, ventricular tachycardia, and amiodarone induced thyroid toxicity. He has an ICD in place. His primary bacon slicer is with the adult congenital heart disease program at [facility], and Dr. Vazquez, router operator pin at [facility]. He reports undergoing multiple ablations over time. He had a surgical ablation at the age of 7 in or again. He had radiofrequency ablation in his later teenage years, and then more recently, 2 ablation is a at [facility]. He has been on amiodarone and beta-tk for his arrhythmias. More recently he has been dealing with ventricular tachycardia and underwent EP study and ablation at [facility] in April of 2021. He states that they were unable to induce the arrhythmia. Amiodarone has been discontinued due to complications with his thyroid and he is on metoprolol succinate 100 mg daily. He reports that the plan was to reduce beta-tk over time as his thyroid improves. He had been experiencing 1 or 2 beats of palpitations regularly up until his most recent ablation at [facility]. Since then, he has been doing much better in that regard. Then today, while walking into the kitchen after sitting at his computer, he developed palpitations described as mild. They were much more mild than previously noted but persistent, similar to ventricular tachycardia in the past. He had mild lightheadedness after several minutes of palpitations. He denied chest discomfort. He eventually had mild shortness of breath once he reported to the emergency department and wearing a mask. In the emergency department, he was noted to be in wide complex tachycardia with a heartbeat in the 140s beats per minute. His blood pressure was stable, but he remained symptomatic. He reported to the emergency department his issues with amiodarone. He also reportedly had received procainamide in the past with no effect. He reported that typically he requires cardioversion. Dr. Dumont of the emergency department contacted me via telephone. Recommended cardioversion. I presented to the bedside and he had just underwent cardioversion at that time. He was cardioverted by emergency department providers. He remained hemodynamically stable. He converted to sinus rhythm. He reports that his symptoms had resolved following cardioversion. He provided the above history once awakened from his sedation. He has been consuming approximately 1 alcoholic beverage daily for the past 2 weeks or so. He has not had any nausea, vomiting, diarrhea, blood loss, fevers, syncope, chest pain, or shortness of breath otherwise. Review of systems: As above. Review of systems otherwise negative/unremarkable. Family history: No known premature CAD. Social history: Denies smoking or drug abuse. Occasional alcohol. . One daughter, Chantell, currently 9-week-old. 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 His and daughter presented to the bedside during our discussion. Allergies Allergy/AdvReac Type Severity Reaction Status Date / Time No Known Allergies Allergy Unverified 06/24/21 11:41 Home Medications Medication Instructions Recorded Confirmed Type metoprolol tartrate 50 mg tablet 50 mg PO BID 07/10/19 06/24/21 History methimazole 5 mg tablet 5 mg PO BID 06/24/21 06/24/21 History Patient History Medical History (Updated 06/24/21 @ 14:35 by Thomas Thakkar MD) Amiodarone-induced thyroiditis Ebstein anomaly Implantable cardioverter-defibrillator (ICD) in situ Ventricular tachycardia WPW (Tbxfn-Eilzlmefi-Irmoi syndrome) Surgical History History of open heart surgery S/P radiofrequency ablation operation for arrhythmia Family History Other Diabetes Heart disease Social History Smoking Status: Never smoker Second Hand Exposure: No; Do You Dip or Chew Tobacco: No; Tobacco Cessation Education Requested by Patient: No Hx Alcohol Use: Yes Alcohol type: beer and wine Hx Substance Use: No Preferred Language: Solomon Islander Communication Ability: Effective Hearing Ability: Normal Lockstitch Front Edge Tape Sewer Required: No Beliefs That Will Affect Care: None marital status: Current Living Situation: Family current occupational status: employed 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 Alert and oriented. HEENT: Anicteric sclera. Neck: No JVD. No bruits. Normal carotid upstrokes bilaterally. Cardiac: PMI was nondisplaced. No ventricular heave. Regular. Normal S1-S2. No murmurs, rubs, or gallops. Pulmonary: Clear to auscultation bilaterally without wheezes, rales, or rhonchi. Abdomen: Soft, nontender, nondistended, with normoactive bowel sounds. No bruits noted. Extremities: 2+ radial pulses bilaterally. 2+ posterior tibialis pulses bilaterally. No edema or cyanosis. No palpable cords. Psychiatric: Affect appears appropriate. Results & Data ([facility]) Vital Signs (Past 12 Hours) Vital Signs Temp Pulse Pulse Resp BP BP Pulse Ox 06/24/21 10:56 78 22 118/71 100 06/24/21 10:48 82 12 113/76 100 06/24/21 10:43 82 14 114/72 100 06/24/21 10:39 84 16 116/93 96 06/24/21 10:35 100 06/24/21 10:34 149 H 24 107/91 100 06/24/21 10:11 36.4 C L 144 H 18 118/60 98 Laboratory Results Laboratory Results - last 24 hr 06/24/21 06/24/21 06/24/21 10:22 10:22 10:22 WBC 7.20 RBC 5.79 Hgb 16.0 Hct 48.4 MCV 83.6 MCH 27.6 MCHC 33.1 RDW Std Deviation 45.3 RDW Coeff of Pamela 14.7 H Plt Count 221 MPV 11.0 H Immature Gran % (Auto) 0.1 Neut % (Auto) 59.8 Lymph % (Auto) 25.4 [place] % (Auto) 13.5 Eos % (Auto) 1.1 Baso % (Auto) 0.1 Neut # (Auto) 4.30 Lymph # (Auto) 1.83 [place] # (Auto) 0.97 H Eos # (Auto) 0.08 Baso # (Auto) 0.01 Immature Gran # (Auto) 0.01 PT 10.9 INR 1.0 APTT 29.9 PTT Ratio 1.1 Sodium Potassium Chloride Carbon Dioxide Anion Gap BUN Creatinine Est Cr Clr Drug Dosing Est GFR ( Amer) Est GFR (Non-Af Amer) BUN/Creatinine Ratio Glucose Calcium Total Bilirubin AST ALT Alkaline Phosphatase Troponin I High Sens 5.5 Total Protein Albumin Globulin Albumin/Globulin Ratio Lipase TSH 06/24/21 06/24/21 10:22 10:22 WBC RBC Hgb Hct MCV MCH MCHC RDW Std Deviation RDW Coeff of Pamela Plt Count MPV Immature Gran % (Auto) Neut % (Auto) Lymph % (Auto) [place] % (Auto) Eos % (Auto) Baso % (Auto) Neut # (Auto) Lymph # (Auto) [place] # (Auto) Eos # (Auto) Baso # (Auto) Immature Gran # (Auto) PT INR APTT PTT Ratio Sodium 139 Potassium 3.8 Chloride 105 Carbon Dioxide 27 Anion Gap 7 BUN 12 Creatinine 0.87 Est Cr Clr Drug Dosing 121.4 Est GFR ( Amer) 126.0 Est GFR (Non-Af Amer) 108.7 BUN/Creatinine Ratio 13.8 Glucose 111 H Calcium 9.5 Total Bilirubin 0.8 AST 18 ALT 17 Alkaline Phosphatase 156 H Troponin I High Sens Total Protein 8.0 Albumin 4.4 Globulin 3.6 Albumin/Globulin Ratio 1.2 Lipase 37 TSH Pending Diagnostic Findings Chest x-ray personally reviewed 06/24/2021: Lungs appeared clear. Formal review by Radiology is pending. Chart reviewed. ECG personally reviewed 06/24/2021: Wide complex tachycardia 149 beats per minute. Left bundle-branch block morphology. PG Care Time/CCT Total # of Minutes Spent Total Time Spent with Patient: Total time spent is greater than 50% in coordination of care (as documented) at patient's floor/unit and/or counseling patient: Coding Level of Care Code 67594 Inpt Consult Level 5 Diagnoses Ventricular tachycardia I47.2 Ebsteins anomaly Q22.5 Implantable cardioverter-defibrillator (ICD) in situ Z95.810
[2021-06-24 11:10] LABS: Albumin Globulin Ratio 1.2 (0.9-2); Albumin Level 4.4 gm/dl (3.4-5.0); BUN Creatinine Ratio 13.8 (10-20); Bilirubin,Total 0.8 mg/dl (0.2-1.0); Calcium 9.5 mg/dl (8.5-10.1); Creatinine Clr Calc Pharmacy 121.4 ml/min; Est GFR (Non-African American) 108.7 ml/min; Globulin 3.6 gm/dl (2.5-4.0); Potassium 3.8 mmol/L (3.5-5.1)
[2021-06-24 11:12] LABS: Partial Thromboplastin Ratio 1.1; Partial Thromboplastin Time 29.9 Seconds (21.0-31.0); Prothrombin Time 10.9 Seconds (9.0-12.0)
--- NOTE | 2021-06-24 11:18 | XRay Report ---
XR chest 1V portable CLINICAL HISTORY: Atypical chest pain. COMPARISON STUDY: Chest radiograph July 10, 2019. FINDINGS: Lung volumes are normal. No pneumothorax or pleural effusion is noted. There is no consolid ation or evidence for pulmonary edema. Median sternotomy wires are noted. Epicardial wires are again noted. Cardiomegaly is unchanged. The appearance of the chest is unchanged. IMPRESSION: No acute cardiopulmonary findings. Stable cardiomegaly. ACT 112: Negative or not required by law. Electronically signed by: Steve Bradshaw M.D. 06/24/2021 11:16 AM
[2021-06-24 11:23] LABS: Thyroid Stimulating Hormone < 0.010 uIu/ml (0.300-4.500)
--- NOTE | 2021-06-24 11:37 | History & Physical Report ---
Date of Service June 24, 2021 Assessment & Plan (1) Ventricular tachycardia: Plan: Oz Amezquita is a 40y/o M w/ PMH significant for Ebstein's anomaly, WPW s/p ablation in April of 2021, amiodarone induced thyroid toxicity, and ICD in situ; who presented to the ED for concerns of arrhythmias and subsequently was noted to be in ventricular tachycardia. Ventricular tachycardia: -Shocked in ED and converted in sinus rhythm. -extensive complex cardiac history with numerous ablations and cardioversions -primary EP is Dr. Vazquez at [facility] -Cardiology consulted to appreciate EP recommendations -currently in sinus rhythm -continue metoprolol 100mg daily -monitor on telemetry overnight Amiodarone induced thyroiditis: -reported history secondary to amiodarone use -avoid amiodarone unless needed as life-saving therapy given history of complications -TSH 0.010 -will update [facility] Endocrinolgy who patient follows with regularly as outpatient -continue methimazole 5mg BID Diet: regular DVT ppx: encourage ambulation CODE: Full code (2) WPW (Vuqze-Obftczfxk-Qfqyn syndrome): (3) History of cardioversion: (4) Implantable cardioverter-defibrillator (ICD) in situ: (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 ICD did not fire. Over the years, he has had multiple ablations over the years, with most recent EP study and ablation two months ago. Amiodarone was discontinued due to complications with his thyroid, and ultimately he is solely on Metoprolol 100mg daily. In the ED, he underwent cardioversion which successfully reverted to sinus rhythm, and he remained hemodynamically stable. Allergies Allergy/AdvReac Type Severity Reaction Status Date / Time No Known Allergies Allergy Unverified 06/24/21 11:41 Home Medications Medication Instructions Recorded Confirmed Type metoprolol tartrate 50 mg tablet 50 mg PO BID 07/10/19 06/24/21 History methimazole 5 mg tablet 5 mg PO BID 06/24/21 06/24/21 History Past Med/Surg History Medical History (Updated 06/24/21 @ 14:35 by Thomas Thakkar MD) Amiodarone-induced thyroiditis Ebstein anomaly Implantable cardioverter-defibrillator (ICD) in situ Ventricular tachycardia WPW (Lbfqg-Kydaskonm-Aiddy syndrome) Surgical History History of open heart surgery S/P radiofrequency ablation operation for arrhythmia Family History Other Diabetes Heart disease Social History Smoking Status: Never smoker Second Hand Exposure: No; Do You Dip or Chew Tobacco: No; Tobacco Cessation Education Requested by Patient: No Hx Alcohol Use: Yes Alcohol type: beer and wine Hx Substance Use: No Preferred Language: Niuean Communication Ability: Effective Hearing Ability: Normal Director Of Casework Required: No Beliefs That Will Affect Care: None marital status: Current Living Situation: Family current occupational status: employed 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 Other Information That Helps Us Care for You: Yes Feels Safe at Home: Yes Safety Concerns: Feels Safe At This Time Assistive Devices: None Review of Systems Review of Systems: All systems reviewed & are unremarkable except as noted in HPI & below Physical Exam Constitutional: WD/WN, vitals as above Eyes: PERRL, conjunctivae normal, anicteric sclerae Respiratory: normal respiratory effort, lungs clear to auscultation Auscultation: no crackles, no rales, no rhonchi and no wheezes Cardiovascular: Rate/Rhythm: regular rate and regular rhythm Heart Sounds: no gallop, no murmur and no cardiac rub Vessels: normal peripheral pulses; no JVD Extremities: no edema Gastrointestinal (Abdomen): Inspection/Auscultation: normal bowel sounds; abdomen not distended Percussion/Palpation: abdomen soft; abdomen nontender and no guarding Musculoskeletal: no cyanosis or clubbing, extremities motor strength 5/5 Skin: no rashes, warm and dry Neurologic: PERRL, EOMI, accommodation nl, no face palsy, no dysarthria CN's II-XI intact bilaterally and moves all extremities Psychiatric: Orientation: alert and oriented x 3 Results & Data Results & Data ([facility]) Vital Signs (Past 12 Hours) Vital Signs Temp Pulse Pulse Resp BP BP Pulse Ox 06/24/21 11:30 78 18 111/68 100 06/24/21 11:02 77 12 123/71 100 06/24/21 10:56 78 22 118/71 100 06/24/21 10:48 82 12 113/76 100 06/24/21 10:43 82 14 114/72 100 06/24/21 10:39 84 16 116/93 96 06/24/21 10:35 100 06/24/21 10:34 149 H 24 107/91 100 06/24/21 10:11 36.4 C L 144 H 18 118/60 98 Laboratory Results 06/24/21 06/24/21 06/24/21 Range/Units 12:08 11:10 11:10 WBC (4.8-10.8) K/uL RBC (4.7-6.1) M/uL Hgb (14.0-18.0) g/dL Hct (42-52) % MCV (80-100) fL MCH (25-34) pg MCHC (32-36) g/dL RDW Std Deviation (36.4-46.3) fL RDW Coeff of Pamela (11.5-14.5) % Plt Count (130-400) K/uL MPV (7.4-10.4) fL Immature Gran % (Auto) % Neut % (Auto) % Lymph % (Auto) % Ellis % (Auto) % Eos % (Auto) % Baso % (Auto) % Neut # (Auto) (1.4-6.5) K/uL Lymph # (Auto) (1.2-3.4) K/uL Ellis # (Auto) (0.11-0.59) K/uL Eos # (Auto) (0-0.5) K/uL Baso # (Auto) (0-0.2) K/uL Immature Gran # (Auto) (0.00-0.02) K/uL PT (9.0-12.0) Seconds INR (0.9-1.1) APTT (21.0-31.0) Seconds PTT Ratio Sodium (136-145) mmol/L Potassium (3.5-5.1) mmol/L Chloride (98-107) mmol/L Carbon Dioxide (21-32) mmol/L Anion Gap (3-11) BUN (6-23) mg/dl Creatinine (0.6-1.4) mg/dl Est Cr Clr Drug Dosing ml/min Est GFR ( Amer) ml/min Est GFR (Non-Af Amer) ml/min BUN/Creatinine Ratio (10-20) Glucose (70-99(Fasting)) mg/dl Calcium (8.5-10.1) mg/dl Total Bilirubin (0.2-1.0) mg/dl AST (13-39) U/L ALT (7-52) U/L Alkaline Phosphatase (34-104) U/L Troponin I High Sens 7.2 Cancelled (0-20) pg/ml Total Protein (6.0-8.3) gm/dl Albumin (3.4-5.0) gm/dl Globulin (2.5-4.0) gm/dl Albumin/Globulin Ratio (0.9-2) Lipase (11-82) U/L TSH (0.300-4.500) uIu/ml Free T4 (0.61-1.60) ng/dl SARS-CoV-2, RNA, NAAT NEGATIVE (NEGATIVE) 06/24/21 06/24/21 06/24/21 Range/Units 10:22 10:22 10:22 WBC (4.8-10.8) K/uL RBC (4.7-6.1) M/uL Hgb (14.0-18.0) g/dL Hct (42-52) % MCV (80-100) fL MCH (25-34) pg MCHC (32-36) g/dL RDW Std Deviation (36.4-46.3) fL RDW Coeff of Pamela (11.5-14.5) % Plt Count (130-400) K/uL MPV (7.4-10.4) fL Immature Gran % (Auto) % Neut % (Auto) % Lymph % (Auto) % Ellis % (Auto) % Eos % (Auto) % Baso % (Auto) % Neut # (Auto) (1.4-6.5) K/uL Lymph # (Auto) (1.2-3.4) K/uL Ellis # (Auto) (0.11-0.59) K/uL Eos # (Auto) (0-0.5) K/uL Baso # (Auto) (0-0.2) K/uL Immature Gran # (Auto) (0.00-0.02) K/uL PT 10.9 (9.0-12.0) Seconds INR 1.0 (0.9-1.1) APTT 29.9 (21.0-31.0) Seconds PTT Ratio 1.1 Sodium 139 (136-145) mmol/L Potassium 3.8 (3.5-5.1) mmol/L Chloride 105 (98-107) mmol/L Carbon Dioxide 27 (21-32) mmol/L Anion Gap 7 (3-11) BUN 12 (6-23) mg/dl Creatinine 0.87 (0.6-1.4) mg/dl Est Cr Clr Drug Dosing 121.4 ml/min Est GFR ( Amer) 126.0 ml/min Est GFR (Non-Af Amer) 108.7 ml/min BUN/Creatinine Ratio 13.8 (10-20) Glucose 111 H (70-99(Fasting)) mg/dl Calcium 9.5 (8.5-10.1) mg/dl Total Bilirubin 0.8 (0.2-1.0) mg/dl AST 18 (13-39) U/L ALT 17 (7-52) U/L Alkaline Phosphatase 156 H (34-104) U/L Troponin I High Sens (0-20) pg/ml Total Protein 8.0 (6.0-8.3) gm/dl Albumin 4.4 (3.4-5.0) gm/dl Globulin 3.6 (2.5-4.0) gm/dl Albumin/Globulin Ratio 1.2 (0.9-2) Lipase 37 (11-82) U/L TSH < 0.010 L (0.300-4.500) uIu/ml Free T4 1.45 (0.61-1.60) ng/dl SARS-CoV-2, RNA, NAAT (NEGATIVE) 06/24/21 06/24/21 Range/Units 10:22 10:22 WBC 7.20 (4.8-10.8) K/uL RBC 5.79 (4.7-6.1) M/uL Hgb 16.0 (14.0-18.0) g/dL Hct 48.4 (42-52) % MCV 83.6 (80-100) fL MCH 27.6 (25-34) pg MCHC 33.1 (32-36) g/dL RDW Std Deviation 45.3 (36.4-46.3) fL RDW Coeff of Pamela 14.7 H (11.5-14.5) % Plt Count 221 (130-400) K/uL MPV 11.0 H (7.4-10.4) fL Immature Gran % (Auto) 0.1 % Neut % (Auto) 59.8 % Lymph % (Auto) 25.4 % Ellis % (Auto) 13.5 % Eos % (Auto) 1.1 % Baso % (Auto) 0.1 % Neut # (Auto) 4.30 (1.4-6.5) K/uL Lymph # (Auto) 1.83 (1.2-3.4) K/uL Ellis # (Auto) 0.97 H (0.11-0.59) K/uL Eos # (Auto) 0.08 (0-0.5) K/uL Baso # (Auto) 0.01 (0-0.2) K/uL Immature Gran # (Auto) 0.01 (0.00-0.02) K/uL PT (9.0-12.0) Seconds INR (0.9-1.1) APTT (21.0-31.0) Seconds PTT Ratio Sodium (136-145) mmol/L Potassium (3.5-5.1) mmol/L Chloride (98-107) mmol/L Carbon Dioxide (21-32) mmol/L Anion Gap (3-11) BUN (6-23) mg/dl Creatinine (0.6-1.4) mg/dl Est Cr Clr Drug Dosing ml/min Est GFR ( Amer) ml/min Est GFR (Non-Af Amer) ml/min BUN/Creatinine Ratio (10-20) Glucose (70-99(Fasting)) mg/dl Calcium (8.5-10.1) mg/dl Total Bilirubin (0.2-1.0) mg/dl AST (13-39) U/L ALT (7-52) U/L Alkaline Phosphatase (34-104) U/L Troponin I High Sens 5.5 (0-20) pg/ml Total Protein (6.0-8.3) gm/dl Albumin (3.4-5.0) gm/dl Globulin (2.5-4.0) gm/dl Albumin/Globulin Ratio (0.9-2) Lipase (11-82) U/L TSH (0.300-4.500) uIu/ml Free T4 (0.61-1.60) ng/dl SARS-CoV-2, RNA, NAAT (NEGATIVE) Diagnostic Findings Impressions Chest X-Ray 06/24/21 10:25 XR chest 1V portable CLINICAL HISTORY: Atypical chest pain. COMPARISON STUDY: Chest radiograph July 10, 2019. FINDINGS: Lung volumes are normal. No pneumothorax or pleural effusion is noted. There is no consolidation or evidence for pulmonary edema. Median sternotomy wires are noted. Epicardial wires are again noted. Cardiomegaly is unchanged. The appearance of the chest is unchanged. IMPRESSION: No acute cardiopulmonary findings. Stable cardiomegaly. ACT 112: Negative or not required by law. Electronically signed by: Steve Bradshaw M.D. 06/24/2021 11:16 AM Medications Administered Current Inpatient Medications Acetaminophen (Acetaminophen 325 Mg Tab) 650 mg PO Q4H PRN PRN Reason: Pain or Fever Stop: 07/24/21 13:01 Al Hydrox/Mg Hydrox/Simethicone (Aluminum/Magnesium Susp 30 Ml Udc) 15 ml PO Q4H PRN PRN Reason: Dyspepsia Stop: 07/24/21 13:01 Magnesium Hydroxide (Magnesium Hydroxide Susp 30 Ml Udc) 30 ml PO Q12H PRN PRN Reason: Constipation Stop: 07/24/21 13:01 Metoprolol Tartrate (Metoprolol Tartrate 50 Mg Tab) [address] Stop: 07/24/21 20:59 Morphine Sulfate (Morphine Sulfate 2 Mg/Ml Carp) 2 mg IV Q30M PRN PRN Reason: Chest Pain Stop: 07/08/21 13:01 Nitroglycerin (Nitroglycerin Sl 0.4 Mg/Tab Tab) 0.4 mg SL UD PRN PRN Reason: Chest Pain Stop: 07/24/21 13:01 Ondansetron HCl (Ondansetron Inj 2 Mg/Ml 2 Ml Vial) 4 mg IV Q6H PRN PRN Reason: Nausea Stop: 07/24/21 13:01 Polyethylene Glycol (Polyethylene (Miralax) 17 Gm Pack) 17 gm PO DAILY PRN PRN Reason: Constipation Stop: 07/24/21 13:01 Supervising Physician Co-Signing Physician Notes Resident Physician Supervision Note: I independently interviewed and examined the patient and verified the patel history and physical, reviewed labs and image studies and agree with resident Dr. Thakkar findings and care plan. Resident Activity Tracking Resident Involvement: Resident Care Provided Care Provided: Adult Hospital Medicine
[2021-06-24 11:56] LABS: T4 Free Thyroxine 1.45 ng/dl (0.61-1.60)
[2021-06-24] MEDS ORDERED: NITROGLYCERIN SL 0.4 MG/TAB TAB SL PRN (13:02)
[2021-06-24] MEDS ORDERED: ALUMINUM/MAGNESIUM SUSP 30 ML UDC PO PRN (13:02)
[2021-06-24] MEDS ORDERED: MAGNESIUM HYDROXIDE SUSP 30 ML UDC PO PRN (13:02)
[2021-06-24] MEDS ORDERED: MoRPHine SULFATE 2 MG/ML CARP IV PRN (13:02)
[2021-06-24] MEDS ORDERED: POLYETHYLENE (MIRALAX) 17 GM PACK PO PRN (13:02)
[2021-06-24] MEDS ORDERED: ACETAMINOPHEN 325 MG TAB PO PRN (13:02)
[2021-06-24] MEDS ORDERED: ONDANSETRON INJ 2 MG/ML 2 ML VIAL IV PRN (13:02)
--- NOTE | 2021-06-24 20:52 | Communication Note ---
Date of Service: June 24, 2021 Notified by nursing/patient of med rec error. Patient is taking methimazole 15mg po BID and NOT methimazole 5mg po BID. Confirmed by outside medical records (Dr. Prince, [facility]). Medication updated in orders.
[2021-06-24] MEDS ORDERED: METOPROLOL TARTRATE 50 MG TAB PO SCH (21:00)
[2021-06-24] MEDS ORDERED: methIMAzole 5 MG TABLET PO SCH (21:00)
[2021-06-24] MEDS ORDERED: methIMAzole 5 MG TABLET PO ONE (21:30)
--- NOTE | 2021-06-25 06:01 | Discharge Summary ---
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 ICD did not fire. Over the years, he has had multiple ablations over the years, with most recent EP study and ablation two months ago. Amiodarone was discontinued due to complications with his thyroid, and ultimately he is solely on Metoprolol 100mg daily. In the ED, he underwent cardioversion which successfully reverted to sinus rhythm, and he remained hemodynamically stable. Admission Exam Per Admitting Provider Constitutional: WD/WN, vitals as above Eyes: PERRL, conjunctivae normal, anicteric sclerae Respiratory: normal respiratory effort, lungs clear to auscultation Auscultation: no crackles, no rales, no rhonchi and no wheezes Cardiovascular: Rate/Rhythm: regular rate and regular rhythm Heart Sounds: no gallop, no murmur and no cardiac rub Vessels: normal peripheral pulses; no JVD Extremities: no edema Gastrointestinal (Abdomen): Inspection/Auscultation: normal bowel sounds; abdomen not distended Percussion/Palpation: abdomen soft; abdomen nontender and no guarding Musculoskeletal: no cyanosis or clubbing, extremities motor strength 5/5 Skin: no rashes, warm and dry Neurologic: PERRL, EOMI, accommodation nl, no face palsy, no dysarthria CN's II-XI intact bilaterally and moves all extremities Psychiatric: Orientation: alert and oriented x 3 Principal Diagnosis ventricular tachycardia Discharge Exam Exam at 630AM. General: Grossly A&O. NAD. Cooperative. HEENT: Atraumatic, normocephalic. EOMI Pulm: CTAB. -wheezes, -rales, -rhonchi. Symmetrical chest rise. No respiratory distress. Cardiac: RRR, -mrg. No LE edema. Abdominal: Nontender, nondistended, soft. Discharge Data Allergies Allergy/AdvReac Type Severity Reaction Status Date / Time No Known Allergies Allergy Unverified 06/24/21 11:41 Consultations 06/24/21 11:32 ED Decision to Admit Stat 06/24/21 13:02 Consult Cardiology Routine Ordered Studies CBC 06/25/21 Range/Units 05:43 WBC 5.78 (4.8-10.8) K/uL RBC 5.26 (4.7-6.1) M/uL Hgb 14.3 (14.0-18.0) g/dL Hct 43.7 (42-52) % Plt Count 199 (130-400) K/uL Neut # (Auto) 3.15 (1.4-6.5) K/uL Lymph # (Auto) 1.72 (1.2-3.4) K/uL [place] # (Auto) 0.74 H (0.11-0.59) K/uL Eos # (Auto) 0.14 (0-0.5) K/uL Baso # (Auto) 0.02 (0-0.2) K/uL Comprehensive Metabolic Panel 06/25/21 Range/Units 05:43 Sodium 138 (136-145) mmol/L Potassium 4.0 (3.5-5.1) mmol/L Chloride 107 (98-107) mmol/L Carbon Dioxide 25 (21-32) mmol/L BUN 11 (6-23) mg/dl Creatinine 0.83 (0.6-1.4) mg/dl Glucose 85 (70-99(Fasting)) mg/dl Calcium 9.1 (8.5-10.1) mg/dl Intake and Output 06/24/21 06/25/21 06/25/21 22:59 06:59 14:59 Intake Total 550 / 1000 200 / 1000 Balance 550 / 1000 200 / 1000 Intake: Oral 550 / 750 200 / 750 Other: # Unmeasured Voids 1 Weight 88.6 kg 88.6 kg Weight Measurement Method Built in [facility] Patient Weight 06/26/21 06:59 Weight 88.6 kg Chest X-Ray 06/24/21 10:25 XR chest 1V portable CLINICAL HISTORY: Atypical chest pain. COMPARISON STUDY: Chest radiograph July 10, 2019. FINDINGS: Lung volumes are normal. No pneumothorax or pleural effusion is noted. There is no consolidation or evidence for pulmonary edema. Median sternotomy wires are noted. Epicardial wires are again noted. Cardiomegaly is unchanged. The appearance of the chest is unchanged. IMPRESSION: No acute cardiopulmonary findings. Stable cardiomegaly. ACT 112: Negative or not required by law. Electronically signed by: Steve Bradshaw M.D. 06/24/2021 11:16 AM ECG Vent. Rate : 149 BPM Atrial Rate : 086 BPM P-R Int : 000 ms QRS Dur : 192 ms QT Int : 400 ms P-R-T Axes : 000 -55 129 degrees QTc Int : 630 ms Wide QRS tachycardia Left axis deviation Left bundle branch block Abnormal ECG When compared with ECG of 10-JUL-2019 13:08, Wide QRS tachycardia has replaced Sinus rhythm Vent. rate has increased BY 91 BPM Confirmed by Augustine Butler ([id number]) on 06/25/2021 6:10:24 AM Hospital Course (1) Ventricular tachycardia: Oz Amezquita is a 40y/o M w/ PMH significant for Ebstein's anomaly, WPW, multiple cardiac ablations, amiodarone induced thyroid toxicity, and ICD; who presented to the [facility] ED for concerns of arrhythmias and subsequently was noted to be in ventricular tachycardia. He was cardioverted in the ED on 06/24/21 and maintained sinus for a day before reverting to sustained vtach ~150s ~7AM of 06/25/21. Dispo: [facility] for cardiac ablation. Date: 06/25/21. Discussed w/ Dr. Vazquez, patient's hospital pharmacy technician. Accepting physician Dr. Farida Muhammad. Room 1164. Patient will be air transferred (helicopter). Ventricular tachycardia: -Shocked in ED and converted in sinus rhythm. -extensive complex cardiac history with numerous ablations and cardioversions -primary EP is Dr. Vazquez at [facility] -Cardiology consulted to appreciate EP recommendations -currently in sinus rhythm -metoprolol succ 100mg daily, held AM of 06/25/21 -06/25 s/p cardioversion x3 on 06/25/21, reverted to vtach; lidocaine drip (88mg bolus and 1mg/min followed by 40mg bolus and 2mg/min). Provided bolus and drip of amio prior to air transport. Patient is able to protect airway and is awake. - otherwise, recommend against use of amio unless needed as life-saving th erapy given history of complications -Magnesium 1.9. Repleted w/ 1mg MgSO4 IV. 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 FT4 1.45. 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: Total Time Total Time Spent Total Time Spent (In Minutes): <30 Discharge Plan Discharge Items Patient Disposition: Transfer Acute Care Hospital Reason For Visit: VENTRICULAR TACHYCARDIA Discharge Diagnosis: ventricular tachycardia Activity: Per Instructions section Call non-emergency contact if: you have any medication questions, your symptoms worsen and you have a fever Follow-up/Referrals: Juan Jackman [Primary Care Provider] - Diet: Nothing by Mouth Addtl Attending Provider Instructions: Oz Amezquita is a 40y/o M w/ PMH significant for Ebstein's anomaly, 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 He was cardioverted in the ED on 06/24/21 and maintained sinus for a day before reverting to sustained vtach ~150s ~7AM of 06/25/21. He is s/p 2 cardioversions on 06/25/21 and is currently in v tach. He is on a lidocaine drip. Patient was given 88mg lidocaine bolus and 1mg/min, and maintained sinus for ~30 min. After he converted to vtach, he was given 40mg bolus and rate increased to 2mg/min. A third cardioversion attempt will be attempted prior to air transport. En route, will add amiodarone if converts to vtach. [facility] Discussed w/ Dr. Vazquez, patient's hospital pharmacy technician. Accepting physician Dr. Farida Muhammad. Room 1164. Patient will be air transferred. Ventricular tachycardia: -Shocked in ED and converted in sinus rhythm. -extensive complex cardiac history with numerous ablations and cardioversions -primary EP is Dr. Vazquez at [facility] -Cardiology consulted to appreciate EP recommendations -currently in sinus rhythm -metoprolol succ 100mg daily, held AM of 06/25/21 -06/25 s/p cardioversion x2, currently in vtach, ~150. Will cardiovert prior to air transver. -Upgraded to ICU status -Precedex administered AM of 06/25/21 Amiodarone induced thyroiditis: -reported history secondary to amiodarone use -avoid amiodarone unless needed as life-saving therapy given history of complications -TSH 0.010 -will update [facility] Endocrinolgy who patient follows with regularly as outpatient -methimazole 5mg BID, held AM of 06/25/21 Diet: NPO CODE: Full code Pending Studies at Discharge: No Stand-Alone Forms: [facility] Patient informed of condition?: Yes DNR: No Discharge Level of Care: Other Communicable Disease: No Discharge Prognosis: Improving Lines: Peripheral IV Urinary Catheter: No Medications and DC Order Prescriptions: Continued metoprolol tartrate 50 mg tablet 100 mg PO DAILY RF: 0 methimazole 5 mg tablet 15 mg PO BID RF: 0 Discharge Orders: Discharge Order (Routine); Ordered 06/25/21 Ordered By: Darrell Nick Admission Data Admit Date/Time: 06/24/21 11:36 Attending Provider: Cortes Rivera Admit Provider: Thomas Thakkar Primary Care Provider: Juan Jackman Other Providers: Sera Olsen ; Augustine Butler ; Neal Wheeler ; Dipesh Correa Other Interventions: Discharge Summary Assessment (RN) Last Done: 06/25/21 12:16 Supervising Physician Co-Signing Physician Notes I personally examined the patient and verified all patel points of history and exam, discussed case, and agree with decision making with Dr Nick seen briefly w cardiology while they were preparing for cardioversion. d/w cardiology re: transfer. Dr Nick made transfer phone calls while i was present. vitals noted nad breathing unlabored no pallor or icterus recurrent/refractory Vtach - beyond our facility's EP capabilities. for transfer to tertiary via helicopter since rhythm could potentially deteriorate to unstable. otherwise as above Resident Activity Tracking Resident Involvement: Resident Care Provided Care Provided: Adult Hospital Medicine
[2021-06-25 06:04] LABS: Basophils # (auto) 0.02 K/uL (0-0.2); Basophils % (auto) 0.3 %; Eosinophils # (auto) 0.14 K/uL (0-0.5); Eosinophils % (auto) 2.4 %; Hematocrit (blood only) 43.7 % (42-52); Hemoglobin 14.3 g/dL (14.0-18.0); Immature Granulocytes # (auto) 0.01 K/uL (0.00-0.02); Immature Granulocytes % (auto) 0.2 %; Lymphocytes # (auto) 1.72 K/uL (1.2-3.4); Lymphocytes % (auto) 29.8 %; Mean Corpuscular Hemoglobin 27.2 pg (25-34); Mean Corpuscular Hgb Conc 32.7 g/dL (32-36); Mean Corpuscular Volume 83.1 fL (80-100); Mean Platelet Volume 10.8 fL (7.4-10.4); Monocytes # (auto) 0.74 K/uL (0.11-0.59); Monocytes % (auto) 12.8 %; Neutrophils # (auto) 3.15 K/uL (1.4-6.5); Neutrophils % (auto) 54.5 %; Platelet Count 199 K/uL (130-400); RDW Coefficient of Variation 14.7 % (11.5-14.5); RDW Standard Deviation 45.1 fL (36.4-46.3); Red Blood Count 5.26 M/uL (4.7-6.1); White Blood Count 5.78 K/uL (4.8-10.8)
--- NOTE | 2021-06-25 06:10 | Electrocardiogram Report ---
Test Reason : Blood Pressure : / mmHG Vent. Rate : 149 BPM Atrial Rate : 086 BPM P-R Int : 000 ms QRS Dur : 192 ms QT Int : 400 ms P-R-T Axes : 000 -55 129 degrees QTc Int : 630 ms Wide QRS tachycardia Left axis deviation Left bundle branch block Abnormal ECG When compared with ECG of 10-JUL-2019 13:08, Wide QRS tachycardia has replaced Sinus rhythm Vent. rate has increased BY 91 BPM Confirmed by Augustine Butler ([id number]) on 06/25/2021 6:10:24 AM Referred By: REFERRED SELF Confirmed By:Augustine Butler
--- NOTE | 2021-06-25 06:11 | Electrocardiogram Report ---
Test Reason : Blood Pressure : / mmHG Vent. Rate : 083 BPM Atrial Rate : 083 BPM P-R Int : 258 ms QRS Dur : 186 ms QT Int : 462 ms P-R-T Axes : 054 103 023 degrees QTc Int : 542 ms Sinus rhythm with 1st degree A-V block with occasional Premature ventricular complexes Possible Left atrial enlargement Rightward axis Right bundle branch block Possible Inferior infarct , age undetermined Abnormal ECG When compared with ECG of 24-JUN-2021 10:21, Sinus rhythm has replaced Wide QRS tachycardia Vent. rate has decreased BY 66 BPM Confirmed by Augustine Butler ([id number]) on 06/25/2021 6:10:57 AM Referred By: REFERRED SELF Confirmed By:Augustine Butler
[2021-06-25 06:27] LABS: BUN Creatinine Ratio 13.3 (10-20); Calcium 9.1 mg/dl (8.5-10.1); Creatinine Clr Calc Pharmacy 127.3 ml/min; Est GFR (African American) 128.5 ml/min; Est GFR (Non-African American) 110.8 ml/min; Magnesium 1.9 mg/dl (1.7-2.4); Phosphorus 3.5 mg/dl (2.5-4.9)
[2021-06-25] MEDS ORDERED: MAGNESIUM SULFATE / D5W 1 GM/100 ML BAG IV ONE (08:32)
[2021-06-25] MEDS ORDERED: METOPROLOL TARTRATE 1 MG/ML VIAL IV STA (08:50)
[2021-06-25] MEDS ORDERED: METOPROLOL TARTRATE 1 MG/ML VIAL IV ONE (08:51)
[2021-06-25] MEDS ORDERED: METOPROLOL SUCC 50MG EXT REL TAB PO SCH (09:00)
[2021-06-25] MEDS ORDERED: methIMAzole 5 MG TABLET PO SCH (09:00)
[2021-06-25] MEDS ORDERED: LIDOCAINE IV BOLUS & DRIP IV STA (09:35)
--- NOTE | 2021-06-25 09:40 | Anesthesiology Consultation ---
Date of Service June 25, 2021 Assessment & Plan Chart Review Chart Review: Acceptable Risk for Surgery Consults Requested none History Height/Weight Height: 5 ft 11 in Weight: 88.6 kg Allergies Allergy/AdvReac Type Severity Reaction Status Date / Time No Known Allergies Allergy Unverified 06/24/21 11:41 Medications Home Medications Medication Instructions Recorded Confirmed Last Taken metoprolol tartrate 50 mg tablet 100 mg PO DAILY 07/10/19 06/24/21 06/24/21 methimazole 5 mg tablet 15 mg PO BID 06/24/21 06/24/21 06/24/21 Active Medications Generic Name Dose Route Start Last Admin Trade Name Freq PRN Reason Stop Dose Admin Acetaminophen 650 mg 06/24/21 13:02 06/24/21 22:08 Acetaminophen 325 Mg Tab PO 07/24/21 13:01 650 mg Q4H PRN Administration Pain or Fever Magnesium Sulfate/Dextrose 1 gm in 100 mls @ 50 mls/hr 06/25/21 08:32 06/25/21 08:56 Magnesium Sulfate / D5w IV 06/25/21 10:31 50 mls/hr ONE ONE Administration Past Medical History Medical History (Updated 06/24/21 @ 14:35 by Thomas Thakkar MD) Amiodarone-induced thyroiditis Ebstein anomaly Implantable cardioverter-defibrillator (ICD) in situ Ventricular tachycardia WPW (Geqvm-Vzauujvog-Ftdtp syndrome) Past Family History Family History Other Diabetes Heart disease Past Surgical History Surgical History History of open heart surgery S/P radiofrequency ablation operation for arrhythmia Social History Smoking Status: Never smoker Do You Dip or Chew Tobacco: No Hx Alcohol Use: Yes Alcohol type: beer and wine alcohol intake frequency: 0-2 drinks per day Alcohol Intake Frequency Comment: 1 drink per day Hx Substance Use: No substance use type: does not use Physical Exam Vital Signs Last Vital Signs Temp 36.9 C 06/25/21 07:52 Pulse 153 H 06/25/21 08:58 Resp 18 06/25/21 07:52 BP 123/60 06/25/21 08:58 Pulse Ox 95 06/25/21 07:52 Testing Laboratory Results 06/25/21 05:43 06/25/21 05:43 PT 10.9 Seconds (9.0-12.0) 06/24/21 10: INR 1.0 (0.9-1.1) 06/24/21 10: APTT 29.9 Seconds (21.0-31.0) 06/24/21 10:22
[2021-06-25] MEDS ORDERED: LIDOCAINE HCL/D5W 2000 MG/500 ML BAG IV ONE (09:43)
[2021-06-25] MEDS ORDERED: LIDOCAINE/D5W DRIP 4MG/ML 2,000 MG/500 ML BAG IV SCH (09:45)
[2021-06-25] MEDS ORDERED: [UNRECOGNIZED DRUG - OTHER] IV ONE ×2 (09:45→10:55)
[2021-06-25] MEDS ORDERED: LIDOCAINE 2% MPF LOCAL 5 ML VIAL INFIL ONE ×2 (10:18→11:05)
[2021-06-25] MEDS ORDERED: PROPOFOL IV EMULSION 10 MG/ML 20 ML VIAL IV ONE ×2 (10:18→11:05)
--- NOTE | 2021-06-25 10:53 | Critical Care Consultation ---
Date of Consultation June 25, 2021 Assessment & Plan (1) Ventricular tachycardia: ICU Assessment and Plans Reason Critically Ill: 40 yo M with complex cardiac history admitted to ICU for ventricular tachycardia s/p multiple cardioversions and awaiting transfer to tertiary care facility Neuro - CAM ICU: NEGATIVE Sedation: None Analgesia: Morphine PRN Fully alert and oriented Cardiac - Ventricular tachycardia -Currently in ventricular tachycardia -Cardiology consulted and prepared for potential further cardioversion, will sedate as needed -Continue lidocaine drip, metoprolol 100 mg daily -Transfer accepted by [facility], air transfer expected to occur prior to 1200 Respiratory - No current respiratory distress Nasal cannula in place, unlikely to require intubation GI - NPO RENAL/ELECTROLYTES - No significant electrolyte derangements Potassium 4.0, goal of K > 4 for arrhythmic patient Mg 1.9 on admission, repleting for goal Mg > 2 for arrhythmic patient - No concerns at this time ENDO - Amiodarone induced thyroiditis -Continue methimazole 5mg BID -Follows with endocrinology at [facility] -TSH <0.01 on admission HEME - -Hgb 14.3, stable ID - No concerns for infection at this point LINES/IV ACCESS - PIVs intact. 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 Agree with assessment and plan aside for any additions/exceptions noted: Patient with ventricular tachycardia storm requiring multiple cardioversions. He has a history of thyroiditis secondary to amiodarone. Continue lidocaine drip. Given bolus of amiodarone given refractory V. tach prior to transfer via helicopter. He was accepted to [facility] for possible V. tach ablation. He may ultimately need to undergo cardiac transplant. Hemodynamically he has remained stable. His airway is protected. Constitutional: Patient appears mildly anxious and in mild distress. Eyes: Pupils are equal round and reactive to light. Conjunctivae are normal. Anicteric sclera. Ears nose, mouth and throat: Normal posterior oropharynx. Uvula is midline. Neck: Trachea is midline. Visual inspection is normal. Respiratory: Clear to auscultation bilaterally. No use of accessory muscles. No significant clubbing noted. Cardiovascular: Tachycardic. No murmurs. No edema. Gastrointestinal: Normal bowel sounds, soft, nontender and nondistended. No hepatosplenomegaly noted. Musculoskeletal: No cyanosis. Patient is able to move all extremities. Skin: No rashes, warm dry and intact. Neurologic: No obvious focal neurological deficits seen. Psychiatric: Alert and oriented x3 with a euthymic affect. History of Present Illness Reason for Consultation: Ventricular tachycardia Requesting Physician: Cortes Rivera DO Attending Physician: Cortes Rivera DO History of Present Illness 40 yo M with extensive cardiac history including Ebstein's anomaly, WPW s/p ablation in 04/2021, amiodarone thyroiditis, ICD in situ, multiple ablations and cardioversions admitted to ICU for ventricular tachycardia. Pt presented on 06/24 with concerns for arrhythmia due to sudden onset palpitations and was noted to be in ventricular tachycardia for which his ICD did not fire. Was cardioverted in ED to sinus rhythm but has had recurrent ventricular tachycardia and cardioverted several more times during stay. Subsequently started on lidocaine drip. Primary team facilitating transfer to [facility] and requested pt be monitored in ICU in interim time. On evaluation, pt still in ventricular tachycardia on monitor. Reports palpitations but denies chest pain, dyspnea, lightheadedness. Updated about plan and agreeable with transfer to [facility]. Allergies Allergy/AdvReac Type Severity Reaction Status Date / Time No Known Allergies Allergy Unverified 06/24/21 11:41 Home Medications Medication Instructions Recorded Confirmed Type metoprolol tartrate 50 mg tablet 100 mg PO DAILY 07/10/19 06/24/21 History methimazole 5 mg tablet 15 mg PO BID 06/24/21 06/24/21 History Patient History Medical History (Updated 06/24/21 @ 14:35 by Thomas Thakkar MD) Amiodarone-induced thyroiditis Ebstein anomaly Implantable cardioverter-defibrillator (ICD) in situ Ventricular tachycardia WPW (Ddnor-Zgduxbzji-Thhqd syndrome) Surgical History History of open heart surgery S/P radiofrequency ablation operation for arrhythmia Family History Other Diabetes Heart disease Social History Smoking Status: Never smoker Second Hand Exposure: No; Do You Dip or Chew Tobacco: No; Tobacco Cessation Education Requested by Patient: No Hx Alcohol Use: Yes Alcohol type: beer and wine Hx Substance Use: No Preferred Language: Hungarian Communication Ability: Effective Hearing Ability: Normal Roentgenologist Required: No Beliefs That Will Affect Care: None marital status: Current Living Situation: Family current occupational status: employed 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 How many Children do You have: 1 Other Information That Helps Us Care for You: Yes Feels Safe at Home: Yes Safety Concerns: Feels Safe At This Time Assistive Devices: None Review of Systems Review of Systems: Per HPI Physical Exam Constitutional: WD/WN, vitals as above Eyes: PERRL, conjunctivae normal, anicteric sclerae Respiratory: normal respiratory effort, lungs clear to auscultation Auscultation: no crackles, no rales, no rhonchi and no wheezes Cardiovascular: Heart Sounds: no gallop, no murmur and no cardiac rub Vessels: normal peripheral pulses; no JVD Extremities: no edema Tachycardia, regular rate, ventricular tachycardia on monitor to 150s Gastrointestinal (Abdomen): Inspection/Auscultation: normal bowel sounds; abdomen not distended Percussion/Palpation: abdomen soft; abdomen nontender and no guarding Musculoskeletal: no cyanosis or clubbing, extremities motor strength 5/5 Skin: no rashes, warm and dry Neurologic: PERRL, EOMI, accommodation nl, no face palsy, no dysarthria CN's II-XI intact bilaterally and moves all extremities Psychiatric: Orientation: alert and oriented x 3 Results & Data Results & Data ([facility]) Vital Signs (Past 12 Hours) Vital Signs Temp Pulse Pulse Resp BP BP BP 06/25/21 08:58 153 H 123/60 06/25/21 07:52 36.9 C 72 18 116/73 06/25/21 07:27 62 06/25/21 03:25 36.5 C 61 18 107/49 L 06/24/21 23:29 65 06/24/21 22:44 36.7 C 64 18 112/57 L Pulse Ox 06/25/21 08:58 06/25/21 07:52 95 06/25/21 07:27 06/25/21 03:25 95 06/24/21 23:29 06/24/21 22:44 94 Resident Activity Tracking Resident Involvement: Resident Care Provided Care Provided: Adult [facility] Medicine
[2021-06-25] MEDS ORDERED: STAT IV Infusion **Titration per Protocol STA (11:06)
[2021-06-25] MEDS ORDERED: dexMEDEtomidine 200 MCG/50 ML BAG IV SCH (11:15)
--- NOTE | 2021-06-25 11:40 | Anesthesiology Consultation ---
Date of Service June 25, 2021 Assessment & Plan Chart Review Chart Review: Acceptable Risk for Surgery Consults Requested none History Height/Weight Height: 5 ft 11 in Weight: 88.6 kg Allergies Allergy/AdvReac Type Severity Reaction Status Date / Time No Known Allergies Allergy Unverified 06/24/21 11:41 Medications Home Medications Medication Instructions Recorded Confirmed Last Taken metoprolol tartrate 50 mg tablet 100 mg PO DAILY 07/10/19 06/24/21 06/24/21 methimazole 5 mg tablet 15 mg PO BID 06/24/21 06/24/21 06/24/21 Active Medications Generic Name Dose Route Start Last Admin Trade Name Freq PRN Reason Stop Dose Admin Acetaminophen 650 mg 06/24/21 13:02 06/24/21 22:08 Acetaminophen 325 Mg Tab PO 07/24/21 13:01 650 mg Q4H PRN Administration Pain or Fever Lidocaine HCl/Dextrose 2,000 mg in 500 mls @ 15 mls/hr 06/25/21 09:45 06/25/21 09:48 Xylocaine/D5w Drip 4mg/Ml IV 07/25/21 09:44 1 mg/min .Q24H COURT 15 mls/hr Administration Protocol 1 MG/MIN NPO Date Last Intake of Fluids: 06/25/21 Time Last Intake of Fluids: 07:30 Date Last Intake of Solids: 06/25/21 Time Last Intake of Solids: 07:30 Past Medical History Medical History (Updated 06/24/21 @ 14:35 by Thomas Thakkar MD) Amiodarone-induced thyroiditis Ebstein anomaly Implantable cardioverter-defibrillator (ICD) in situ Ventricular tachycardia WPW (Kxvpp-Mkytwumto-Mjusv syndrome) Past Family History Family History Other Diabetes Heart disease Past Surgical History Surgical History History of open heart surgery S/P radiofrequency ablation operation for arrhythmia Social History Smoking Status: Never smoker Do You Dip or Chew Tobacco: No Hx Alcohol Use: Yes Alcohol type: beer and wine alcohol intake frequency: 0-2 drinks per day Alcohol Intake Frequency Comment: 1 drink per day Hx Substance Use: No substance use type: does not use Physical Exam Vital Signs Last Vital Signs Temp 36.9 C 06/25/21 07:52 Pulse 153 H 06/25/21 08:58 Resp 18 06/25/21 07:52 BP 123/60 06/25/21 08:58 Pulse Ox 95 06/25/21 07:52 Testing Laboratory Results 06/25/21 05:43 06/25/21 05:43 PT 10.9 Seconds (9.0-12.0) 06/24/21 10:22 INR 1.0 (0.9-1.1) 06/24/21 10:22 APTT 29.9 Seconds (21.0-31.0) 06/24/21 10:22
--- NOTE | 2021-06-25 11:44 | Anesthesiology Progress Note ---
Date of Service June 25, 2021 Anesthesia Post Procedure Vital Signs Vital Signs: Temp Pulse Pulse Resp BP BP BP 06/25/21 08:58 153 H 123/60 06/25/21 07:52 36.9 C 72 18 116/73 06/25/21 07:27 62 06/25/21 03:25 36.5 C 61 18 107/49 L 06/24/21 23:29 65 06/24/21 22:44 36.7 C 64 18 112/57 L 06/24/21 19:29 36.7 C 60 16 107/66 06/24/21 17:19 37.0 C 66 16 111/71 06/24/21 15:14 67 06/24/21 14:04 74 06/24/21 13:06 36.6 C 60 14 114/70 Pulse Ox 06/25/21 08:58 06/25/21 07:52 95 06/25/21 07:27 06/25/21 03:25 95 06/24/21 23:29 06/24/21 22:44 94 06/24/21 19:29 97 06/24/21 17:19 95 06/24/21 15:14 06/24/21 14:04 06/24/21 13:06 96 Transfer of Care Handoff Completed per policy Notes Mental Status: alert / awake / arousable and participated in evaluation Patient Amnestic to Procedure: Yes Nausea / Vomiting: adequately controlled Pain: adequately controlled Airway Patency, RR, SpO2: stable & adequate BP & HR: stable & adequate Hydration State: stable & adequate Anesthetic Complications: no major complications apparent (Pt had successful cardioversion under sedation earlier on while on telemetry unit. Transferred to ICU and had recurrence of arrhythmia. Sedated again and cardioverted. Being prepared for transfer to [place]. Awake)
[2021-06-25] MEDS ORDERED: AMIODARONE 360MG / 200ML D5W IV ONE (11:46)
[2021-06-25] MEDS ORDERED: AMIODARONE 150MG / 100ML D5W IV ONE (11:46)
--- NOTE | 2021-06-25 12:00 | Cardioversion ---
Date of Service June 25, 2021 PG Electrical Cardioversion Rp Electrical Cardioversion Report Procedure: DC Cardioversion Date 06/25/2021 Time 9:58 a.m. Indication: Symptomatic ventricular tachycardia Consent: Verbal consent obtained per patient preference (in the setting of symptoms) Sedation: Provided by Anesthesiology. Anti rhythmic: Lidocaine IV History: Has known ventricular tachycardia and underwent internal cardioversion x [address] Correa. Ventricular tachycardia recurred and he was loaded with intravenous lidocaine which demonstrated reduction in heart rate while remaining in ventricular tachycardia (from approximately 150 down to mid 130s bpm). This note was not created immediately following the procedure due to an emergency elsewhere in the hospital. Procedural details: Once he was sufficiently sedated as per Anesthesiology, 100 joules were delivered in a synchronized fashion which successfully converted ventricular tachycardia to sinus rhythm. He tolerated the procedure well without known complication. Plan: 1. Continue lidocaine intravenous drip. 2. Continue oral beta-tk. 3. Transfer to [facility] for definitive treatment of recurrent ventricular tachycardia. Coding Level of Care Code Cardioversion, elective Additional Codes Electrical Cardioversion Report ([id number])
--- NOTE | 2021-06-25 12:04 | Cardioversion ---
Date of Service June 25, 2021 PG Electrical Cardioversion Rp Electrical Cardioversion Report Procedure: DC Cardioversion Indication: Recurrent Symptomatic ventricular tachycardia Sedation: Provided by anesthesiology Consent: Informed verbal consent was obtained per patient preference due to symptoms. Time out: Performed. Anti arrhythmic therapy: Intravenous lidocaine Date of procedure 06/25/2021 Time of procedure: 11:35 a.m. History: He has undergone cardioversion on 3 separate occasions today but once again reverted to ventricular tachycardia with symptoms. Systolic blood pressure in the 90s. 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 Another bolus of lidocaine (40 mg in addition to previous 88 mg) and drip increased to 2 milligrams/minute. Procedure details: Once he was sufficiently sedated as per Anesthesiology, ventricular tachycardia was successfully converted to sinus rhythm with 100 joules in a synchronized fashion. He tolerated the procedure well without known complication. Plan: 1. Continue intravenous lidocaine 2. 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 They recommended that it be used in a temporary fashion to stabilize transfer, for recurrence. Coding Level of Care Code Cardioversion, elective Additional Codes Electrical Cardioversion Report ([id number])
--- NOTE | 2021-06-25 12:08 | Cardiology Progress Note ---
Date of Service June 25, 2021 Assessment & Plan (1) Ventricular tachycardia: (2) Ebsteins anomaly: (3) Implantable cardioverter-defibrillator (ICD) in situ: Plan: ASSESSMENT/PLAN: 1. Ventricular tachycardia: Has persistent ventricular tachycardia which has been successfully converted to sinus only to recur multiple times. Started lidocaine drip. 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 Procainamide has been ineffective in the past. With recurrence of his ventricular tachycardia after the first 3 cardioversions today, lidocaine was rebolused (first bolus 88 mg and second 40 mg) and lidocaine drip was increased to 2 milligrams/min. Continue beta-tk. Recommended transfer to [facility] [place] more definitive treatment as he will likely require further EP study and possible ablation. Appreciate Dr. Correa's assistance who discussed the case with Dr. Vazquez of [facility] electrophysiology. After discussing with [facility] accepting physician in the ICU, the plan was to use amiodarone IV if necessary for recurrent ventricular tachycardia for the travel to [facility], on a temporary basis only. He also received magnesium today. Electrolytes were unremarkable. TSH remains undetectable, which may be playing a role in his ventricular arrhythmia. Consider echo at [facility]. 2. Ebstein's anomaly s/p surgical correction: Underwent surgery in his early 20s. Followed by the Adult Congenital heart disease program [facility]. 3. ASD s/p closure: Performed at the age of 7. 4. ICD: Interrogation performed today by Dr. Correa. 5. Disposition: Recommend transferred [facility]. Appreciate hospitalist service assistance in helping arrange transfer via helicopter. Patient care discussed with railroad car painter Dr. Wheeler, Dr. Nick and Nicole of the primary hospital service, and Dr. Correa of electrophysiology. Highly complex medical issues. Critical care time 135 min, which included managing his ventricular arrhythmia, coordinating care, updating patient's , and discussing with multiple providers as noted. This does not include time spent performing the actual cardioversions x 2. Admission and Anticipated Discharge Date Admission Date: June 24, 2021 Subjective I was notified by several staff members and primary hospitalist team that ventricular tachycardia recurred this morning. Unfortunately when messages were sent, I was scrubbed into a procedure. When able, I immediately presented to the bedside. Also placed a consultation for electrophysiology, Dr. Correa. He had done well overnight without recurrent symptoms but developed palpitations this morning and did not feel well but no chest pain or shortness of breath. There was no syncope or near-syncope. His blood pressure at times was hypotensive with systolic pressure in the 90s to low normal blood pressure values. His heart rate while in ventricular tachycardia was typically high 140s to low 150s. Dr. Correa performed cardioversion times to internally while sedated by Anesthesiology. After the first 1, which was successful, he quickly reverted to ventricular tachycardia. A few minutes after the second 1, he once again developed ventricular tachycardia. During this time, Dr. Correa contacted Dr. Vazquez, electrophysiology [facility], who was agreeable to have patient transferred to [facility] for more definitive treatment. While at the bedside, ordered intravenous lidocaine with a bolus and then a drip and then performed another cardioversion which was successful and held sinus rhythm for 20-30 minutes before once again ventricular tachycardia recurred. I was called back to the bedside in the ICU for recurrent ventricular tachycardia. He stated that he felt weak and fatigued and continued to have palpitations but no chest pain or shortness of breath. His was at the bedside. Physical Exam Physical Exam: Gen.: Appears uncomfortable. Alert and oriented. HEENT: Anicteric sclera. Neck: No JVD. Cardiac: PMI was nondisplaced. No ventricular heave. Tachycardic and regular. Normal S1-S2. No murmurs, rubs, or gallops. Pulmonary: Clear to auscultation bilaterally without wheezes, rales, or rhonchi. Abdomen: Soft, nontender, nondistended. No bruits noted. Extremities:No edema or cyanosis. Psychiatric: Affect appears appropriate. Results & Data ([facility]) Vital Signs (Past 12 Hours) Vital Signs Temp Pulse Pulse Resp BP BP BP 06/25/21 08:58 153 H 123/60 06/25/21 07:52 36.9 C 72 18 116/73 06/25/21 07:27 62 06/25/21 03:25 36.5 C 61 18 107/49 L Pulse Ox 06/25/21 08:58 06/25/21 07:52 95 06/25/21 07:27 06/25/21 03:25 95 Laboratory Results Laboratory Results - last 24 hr 06/24/21 06/25/21 06/25/21 12:08 05:43 05:43 WBC 5.78 RBC 5.26 Hgb 14.3 Hct 43.7 MCV 83.1 MCH 27.2 MCHC 32.7 RDW Std Deviation 45.1 RDW Coeff of Pamela 14.7 H Plt Count 199 MPV 10.8 H Immature Gran % (Auto) 0.2 Neut % (Auto) 54.5 Lymph % (Auto) 29.8 [place] % (Auto) 12.8 Eos % (Auto) 2.4 Baso % (Auto) 0.3 Neut # (Auto) 3.15 Lymph # (Auto) 1.72 Cass # (Auto) 0.74 H Eos # (Auto) 0.14 Baso # (Auto) 0.02 Immature Gran # (Auto) 0.01 Sodium 138 Potassium 4.0 Chloride 107 Carbon Dioxide 25 Anion Gap 6 BUN 11 Creatinine 0.83 Est Cr Clr Drug Dosing 127.3 Est GFR ( Amer) 128.5 Est GFR (Non-Af Amer) 110.8 BUN/Creatinine Ratio 13.3 Glucose 85 Calcium 9.1 Phosphorus 3.5 Magnesium 1.9 Troponin I High Sens 7.2 Diagnostic Findings ECG personally reviewed 06/25/2021 at 11:04 a.m.: Ventricular tachycardia 152 beats per minute LBBB. Medications Administered Current Inpatient Medications Acetaminophen (Acetaminophen 325 Mg Tab) 650 mg PO Q4H PRN PRN Reason: Pain or Fever Stop: 07/24/21 13:01 Last Admin: 06/24/21 22:08 Dose: 650 mg Documented by: Al Hydrox/Mg Hydrox/Simethicone (Aluminum/Magnesium Susp 30 Ml Udc) 15 ml PO Q4H PRN PRN Reason: Dyspepsia Stop: 07/24/21 13:01 Lidocaine HCl/Dextrose (Xylocaine/D5w Drip 4mg/Ml) 2,000 mg in 500 mls @ 15 mls/hr IV .Q24H COURT; Protocol Stop: 07/25/21 09:44 Last Admin: 06/25/21 09:48 Dose: 1 mg/min, 15 mls/hr Documented by: Dexmedetomidine/Sodium Chloride (Precedex) 200 mcg in 50 mls @ 8.86 mls/hr IV .Q5H39M COURT; Protocol Stop: 06/29/21 11:14 Magnesium Hydroxide (Magnesium Hydroxide Susp 30 Ml Udc) 30 ml PO Q12H PRN PRN Reason: Constipation Stop: 07/24/21 13:01 Methimazole (Methimazole 5 Mg Tablet) [address] Stop: 07/25/21 08:59 Metoprolol Succinate (Metoprolol Succ 50mg Ext Rel Tab) [address] Stop: 07/25/21 08:59 Morphine Sulfate (Morphine Sulfate 2 Mg/Ml Carp) 2 mg IV Q30M PRN PRN Reason: Chest Pain Stop: 07/08/21 13:01 Nitroglycerin (Nitroglycerin Sl 0.4 Mg/Tab Tab) 0.4 mg SL UD PRN PRN Reason: Chest Pain Stop: 07/24/21 13:01 Ondansetron HCl (Ondansetron Inj 2 Mg/Ml 2 Ml Vial) 4 mg IV Q6H PRN PRN Reason: Nausea Stop: 07/24/21 13:01 Polyethylene Glycol (Polyethylene (Miralax) 17 Gm Pack) 17 gm PO DAILY PRN PRN Reason: Constipation Stop: 07/24/21 13:01 PG Care Time/CCT Total # of Minutes Spent Total Time Spent with Patient: Total time spent is greater than 50% in coordination of care (as documented) at patient's floor/unit and/or counseling patient: Critical Care Time: Yes Total Critical Care Time: 135 135 Coding Level of Care Code None Diagnoses Ventricular tachycardia I47.2 Ebsteins anomaly Q22.5 Implantable cardioverter-defibrillator (ICD) in situ Z95.810 Additional Codes Critical Care Time - Critical Care Time: Yes ([id number]) Time Spent (min) 135 Comment [id number]
--- NOTE | 2021-06-25 12:55 | Billing Data ---
Date of Service June 25, 2021 Coding Level of Care Code D/C DAY MANAGEMENT <30 MINS
--- NOTE | 2021-06-25 13:14 | Billing Data ---
Date of Service June 25, 2021 Coding Level of Care Code 19817 Inpt Consult Level 5
--- NOTE | 2021-06-25 17:15 | Cardiology Consultation ---
Date of Consultation June 25, 2021 Assessment & Plan (1) Ventricular tachycardia: History of Present Illness Reason for Consultation: Sustained ventricular tachycardia Requesting Physician: Luke Attending Physician: Cortes Rivera DO History of Present Illness the patient is a 40-year-old gentleman with a history of Ebstein's anomaly, multiple assess Re pathways status post both ASD closure and Julio Procedure. Patient presented with atrial flutter in 2018 and underwent radiofrequency ablation. He was subsequently seen in our institution in 2019 with ventricular tachycardia. More recently he has had additional episodes of ventricular tachycardia which prompted catheter based therapy 1 month ago according to the patient. Yesterday he presented to the hospital with sustained ventricular tachycardia and required sedation cardioversion. He was kept overnight for monitoring purposes. This morning he again developed sustained ventricular tachycardia. The patient does not feel well when he has ventricular tachycardia but does not have overt dizziness or chest pain. No significant breathing difficulty. At the time of the interview the patient was conversant and hemodynamically stable. he was previously on amiodarone which was recently discontinued due to thyroiditis. Currently on methimazole and metoprolol Allergies Allergy/AdvReac Type Severity Reaction Status Date / Time No Known Allergies Allergy Unverified 06/24/21 11:41 Home Medications Medication Instructions Recorded Confirmed Type metoprolol tartrate 50 mg tablet 100 mg PO DAILY 07/10/19 06/24/21 History methimazole 5 mg tablet 15 mg PO BID 06/24/21 06/24/21 History Patient History Medical History (Updated 06/24/21 @ 14:35 by Thomas Thakkar MD) Amiodarone-induced thyroiditis Ebstein anomaly Implantable cardioverter-defibrillator (ICD) in situ Ventricular tachycardia WPW (Zetxg-Cjsamusyy-Xsjoi syndrome) Surgical History History of open heart surgery S/P radiofrequency ablation operation for arrhythmia Family History Other Diabetes Heart disease Social History Smoking Status: Never smoker Second Hand Exposure: No; Hx Alcohol Use: Yes Alcohol type: beer and wine Hx Substance Use: No Preferred Language: Welsh Communication Ability: Effective Hearing Ability: Normal Line Department Supervisor Required: No Beliefs That Will Affect Care: None marital status: Current Living Situation: Family current occupational status: employed 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 Prior to his last ablation the patient did notice fairly frequent palpitations which resolved until yesterday. Physical Exam Physical Exam: The patient is alert and oriented. Mood and affect appeared normal. He answered all questions appropriately. Anxious HEENT: Pupils are equal and reactive to light and accommodation. Extraocular movements are intact. The sclerae are anicteric. Neuro: Cranial nerves intact Lungs: normal respiratory effort Cardiac: tachycardia Pulses: The patient has palpable radial pulses bilaterally that are equal in intensity Extremities: There was no evidence of hypoperfusion. There is no cyanosis or clubbing. There is no edema. Skin: I did not appreciate any rashes on examination today. Results & Data ([facility]) Vital Signs (Past 12 Hours) Vital Signs Temp Pulse Pulse Resp BP BP BP 06/25/21 12:16 36.7 C 153 H 20 115/75 06/25/21 11:40 16 06/25/21 11:37 101 H 15 112/75 06/25/21 11:35 151 H 13 115/77 06/25/21 11:30 153 H 9 L 100/72 06/25/21 11:25 153 H 13 95/66 L 06/25/21 11:20 153 H 10 L 112/76 06/25/21 11:15 153 H 11 L 89/70 L 06/25/21 11:10 153 H 11 L 106/71 06/25/21 11:05 153 H 9 L 90/71 L 06/25/21 11:00 152 H 10 L 112/74 06/25/21 10:55 153 H 8 L 93/80 L 06/25/21 10:50 153 H 8 L 93/69 L 06/25/21 10:45 152 H 8 L 81/66 L 06/25/21 10:40 152 H 10 L 111/78 06/25/21 10:35 151 H 12 101/74 06/25/21 10:30 150 H 12 106/70 06/25/21 10:28 150 H 2 L 99/66 L 06/25/21 10:26 146 H 17 06/25/21 10:15 36.8 C 93 H 95 H 16 107/62 107/62 06/25/21 10:10 95 H 96 H 21 95/66 L 95/66 L 06/25/21 10:05 94 H 96 H 19 102/67 102/67 06/25/21 10:00 95 H 94 H 17 115/75 115/75 06/25/21 08:58 153 H 123/60 06/25/21 08:20 152 H 20 116/84 06/25/21 07:52 36.9 C 72 18 116/73 06/25/21 07:27 62 Pulse Ox 06/25/21 12:16 97 06/25/21 11:40 06/25/21 11:37 100 06/25/21 11:35 100 06/25/21 11:30 100 06/25/21 11:25 99 06/25/21 11:20 98 06/25/21 11:15 99 06/25/21 11:10 98 06/25/21 11:05 99 06/25/21 11:00 100 06/25/21 10:55 100 06/25/21 10:50 98 06/25/21 10:45 97 06/25/21 10:40 98 06/25/21 10:35 97 06/25/21 10:30 97 06/25/21 10:28 96 06/25/21 10:26 96 06/25/21 10:15 96 06/25/21 10:10 98 06/25/21 10:05 98 06/25/21 10:00 99 06/25/21 08:58 06/25/21 08:20 98 06/25/21 07:52 95 06/25/21 07:27 Laboratory Results Abnormal Lab Results 06/25/21 06/25/21 05:43 05:43 WBC 5.78 RBC 5.26 Hgb 14.3 Hct 43.7 MCV 83.1 MCH 27.2 MCHC 32.7 RDW Std Deviation 45.1 RDW Coeff of Pamela 14.7 H Plt Count 199 MPV 10.8 H Immature Gran % (Auto) 0.2 Neut % (Auto) 54.5 Lymph % (Auto) 29.8 [place] % (Auto) 12.8 Eos % (Auto) 2.4 Baso % (Auto) 0.3 Neut # (Auto) 3.15 Lymph # (Auto) 1.72 [place] # (Auto) 0.74 H Eos # (Auto) 0.14 Baso # (Auto) 0.02 Immature Gran # (Auto) 0.01 Sodium 138 Potassium 4.0 Chloride 107 Carbon Dioxide 25 Anion Gap 6 BUN 11 Creatinine 0.83 Est Cr Clr Drug Dosing 127.3 Est GFR ( Amer) 128.5 Est GFR (Non-Af Amer) 110.8 BUN/Creatinine Ratio 13.3 Glucose 85 Calcium 9.1 Phosphorus 3.5 Magnesium 1.9 PG Care Time/CCT Total # of Minutes Spent Total Time Spent with Patient: Total time spent is greater than 50% in coordination of care (as documented) at patient's floor/unit and/or counseling patient: Coding Diagnoses Ventricular tachycardia I47.2
--- NOTE | 2021-06-25 17:18 | Cardioversion ---
Date of Service June 25, 2021 PG Electrical Cardioversion Rp Electrical Cardioversion Report procedure performed: Internal cardioversion staff workforce services representative: Dipesh Correa MD indication: Sustained ventricular tachycardia the patient was in sustained ventricular tachycardia. I employ the [employer] device j2ee programmer and after the patient was adequately sedated I programmed the device to deliver therapy and provide cardioversion. The device did attempt anti tachycardia pacing but this was unsuccessful. Cardioversion with 35 joules delivered internally was successful at restoring sinus rhythm. Coding Level of Care Code Cardioversion, elective Additional Codes Electrical Cardioversion Report ([id number])
--- NOTE | 2021-06-27 07:05 | Electrocardiogram Report ---
Test Reason : Blood Pressure : / mmHG Vent. Rate : 152 BPM Atrial Rate : 144 BPM P-R Int : 000 ms QRS Dur : 194 ms QT Int : 438 ms P-R-T Axes : 000 -51 125 degrees QTc Int : 696 ms Ventricular tachycardia Left axis deviation Left bundle branch block Abnormal ECG When compared with ECG of 24-JUN-2021 10:42, Ventricular tachycardia has replaced Sinus rhythm Vent. rate has increased BY 69 BPM Confirmed by Augustine Butler ([id number]) on 06/27/2021 7:04:41 AM Referred By: REFERRED SELF Confirmed By:Augustine Butler
== END 2021-06-25 12:20 | disposition short-term general hospital (02) | DRG 310 ==
LOC: ED 10:08 → 2E 11:36 → SUATTDRO 11:36 → 2E 12:20 → 1E 06-25 10:31